=== PATIENT | female | born 1950 | race Caucasian/White ===

== ENCOUNTER 2016-05-16 08:32 | Outpatient (CLI) | payer MEDICARE, OTHER | END 2016-05-16 08:33 | disposition home or self-care (01) | DX: E03.9 Hypothyroidism, unspecified (principal); R53.83 Other fatigue; D64.9 Anemia, unspecified ==

== ENCOUNTER 2016-10-15 08:57 | Outpatient (CLI) | payer MEDICARE, OTHER ==
[2016-10-15 18:13] LABS: BASOPHILS % (AUTO) 0.6 %; EOSINOPHILS # (AUTO) 0.2 10^3/uL (0.0-0.7); EOSINOPHILS % (AUTO) 3.2 %; HCT - HEMATOCRIT 39.5 % (37.0-47.0); LYMPHOCYTES # (AUTO) 1.5 10^3/uL (1.5-3.5); MEAN CORPUSCULAR HEMOGLOBIN 29.7 pg (27.0-31.0); MEAN PLATELET VOLUME 8.2 fL (7.9-10.8); MONOCYTES # (AUTO) 0.3 10^3/uL (0.0-1.0); MONOCYTES % (AUTO) 5.6 %; NEUTROPHILS # (AUTO) 3.6 10^3/uL (1.5-6.6); NEUTROPHILS % (AUTO) 63.6 %; NUCLEATED RED BLOOD CELLS AUTO 0.1 /100WBC; RED BLOOD COUNT 4.39 10^6/uL (4.20-5.40); UNCORRECTED WHITE BLOOD COUNT 5.6 x10^3/uL; WHITE BLOOD COUNT 5.6 x10^3/uL (4.8-10.8)
[2016-10-15 19:11] LABS: ALBUMIN/GLOBULIN RATIO 1.4 (1.0-2.2); BILIRUBIN,TOTAL 0.6 mg/dL (0.2-1.0); BUN - BLOOD UREA NITROGEN 22 mg/dL (6-20); CALCIUM 9.2 mg/dL (8.5-10.3); CARBON DIOXIDE - CO2 26 mmol/L (21-32); CHLORIDE 104 mmol/L (101-111); CHOL/HDL RATIO 2.7 (<4.4); CHOLESTEROL 241 mg/dL; CREATININE 0.9 mg/dL (0.4-1.0); GFR - MDRD 63 (>89); GLUCOSE 98 mg/dL (70-100); HDL CHOLESTEROL 88 mg/dL; LDL/HDL RATIO 1.4 (<4.4); POTASSIUM 3.9 mmol/L (3.5-5.0); SODIUM 136 mmol/L (135-145); TOTAL PROTEIN 7.1 g/dL (6.7-8.2); TRIGLYCERIDES 137 mg/dL; VLDL CHOLESTEROL 27 mg/dL
== END 2016-10-15 08:58 | disposition home or self-care (01) ==
LOC: LAB.F 08:57
PROVIDERS: ATTEND Physician Assistant Medical
DX: E78.5 Hyperlipidemia, unspecified (principal); Z51.81 Encounter for therapeutic drug level monitoring; E03.9 Hypothyroidism, unspecified; Z79.899 Other long term (current) drug therapy
CPT/HCPCS: 36415; 80053; 80061; 80175; 84443; 85025

== ENCOUNTER 2016-11-25 22:18 | Emergency (ER) | payer MEDICARE, OTHER ==
[2016-11-25 22:29] VITALS: BP 120/62
[2016-11-25] MEDS ORDERED: predniSONE 20 MG TABLET PO STA (22:35)
[2016-11-25] MEDS ORDERED: LORATADINE 10 MG TABLET PO STA (22:36)
--- NOTE | 2016-11-25 22:42 | ED Physician Documentation ---
PD HPI ANIMAL BITE - Stated complaint Stated Complaint: BEE STING - Chief complaint Chief Complaint: Wound - History obtained from History obtained from: Patient, Family - Additional information Additional information: This patient had a bee sting to her left upper arm medially a day ago and today the areas intensely pruritic, red, warm and tender to touch. The patient is concerned about a possible infection. She is otherwise pretty healthy she has a history of hypothyroidism but does not have any serious other medical problems. She has not had any swelling of her face her tongue and there is no difficulty in breathing. She has no previous history of allergies to bees. Review of systems: For pertinent positive and negatives in the review of systems please see history of present illness. Otherwise all other systems have been reviewed and are negative. AKT disclaimer: Parts of this medical record were created using voice recognition technology. Because of the inherent limitations of this system occasional same sounding word substitutions do occur and persist despite proofreading. Please read the document for context. Review of Systems Respiratory: denies: Dyspnea, Cough, Wheezing Skin: reports: Rash, Bite / sting PD PAST MEDICAL HISTORY - Past Medical History Cardiovascular: Hypertension, High cholesterol, Murmur Respiratory: None Neuro: Headache/migraine Endocrine/Autoimmune: HyPOthyroidism GI: None AUTOMOTIVE FINANCE MANAGER: None : None HEENT: None Psych: Depression, Anxiety, Bipolar disorder Musculoskeletal: Osteoarthritis Derm: None - Past Surgical History Past Surgical History: Yes General: Appendectomy /AUTOMOTIVE FINANCE MANAGER: Hysterectomy - Present Medications Home Medications: Ambulatory Orders Medication Instructions Recorded Confirmed Estradiol 1 tab PO DAILY 04/03/14 11/25/16 Fluticasone Propionate [Flovent 1 puffs INH BID PRN 04/03/14 11/25/16 Diskus] Hydrochlorothiazide 1 tab PO DAILY 04/03/14 11/25/16 Lamotrigine [Lamictal] 2 tab PO BID 04/03/14 11/25/16 Levothyroxine [Synthroid] 1 tab PO DAILY 04/03/14 11/25/16 Sertraline [Zoloft] 2 tab PO DAILY 04/03/14 11/25/16 Simvastatin 1 tab PO DAILY 04/03/14 11/25/16 Loratadine [Claritin] 10 mg PO DAILY #7 tablet 11/25/16 Prednisone 40 mg PO DAILY #8 tablet 11/25/16 - Allergies Allergies/Adverse Reactions: Allergies Allergy/AdvReac Type Severity Reaction Status Date / Time codeine Allergy Nausea Verified 11/25/16 22:26 Penicillins Allergy Hives Verified 11/25/16 22:26 Sulfa (Sulfonamide Allergy Hives Verified 11/25/16 22:26 Antibiotics) Latex, Natural Rubber AdvReac Severe Rash Verified 11/25/16 22:26 oxycodone AdvReac Nausea Verified 11/25/16 22:26 - Social History Does the pt smoke?: No Smoking Status: Never smoker Does the pt drink ETOH?: No Does the pt have substance abuse?: No - Immunizations Immunizations are current?: Yes Immunizations: TDAP current <10years - POLST Patient has POLST: No PD ED PE NORMAL - General General: Alert and oriented X 3, No acute distress, Well developed/nourished - HEENT HEENT: Atraumatic - Derm Derm: Other - Neuro Neuro: Other (Well-appearing female no apparent distress on examination of her left medial upper extremity there is area approximately the size of my hand that is red, pruritic, and warm to touch. There is a central area presumably from the insect be of animation. There is no area of fluctuance or other clinical findings consistent with infection.) Results - Vitals Vitals: Vital Signs - 24 hr 11/25/16 22:26 Temperature 36.5 C Heart Rate 67 Respiratory 16 Rate Blood Pressure 120/62 O2 Saturation 100 Oxygen O2 Source Room air PD MEDICAL DECISION MAKING - ED course ED course: Well-appearing lady who had a bee sting yesterday left upper arm. She has no signs or symptoms of anaphylaxis. On examination she has findings consistent with a local allergic reaction from a bee sting. I did discuss this with her. This does not suggest infection at this point. I am recommending oral prednisone, loratadine and topical cortisone cream which is dispensed here. Disposition: To home Clinical impression: 1. Left medial upper arm bee sting with local allergic reaction Departure - Departure Disposition: Home, Self Care Clinical Impression: Local reaction to bee sting Qualifiers: Encounter type: initial encounter Injury intent: accidental or unintentional Qualified Code(s): T63.441A - Toxic effect of venom of bees, accidental ( unintentional), initial encounter Condition: Good Instructions: ED Bite Sting Insect Local Allergic React Follow-Up: Akira,Skyler W, PA-C [Primary Care Provider] - Prescriptions: Loratadine [Claritin] 10 mg PO DAILY #7 tablet Prednisone 40 mg PO DAILY #8 tablet
[2016-11-25] MEDS ORDERED: HYDROCORTISONE 1% CREAM 28 GM TUBE TOP STA (22:46)
[2016-11-25] MEDS ORDERED: LORATADINE 10 MG TABLET ONE (22:47)
[2016-11-25] MEDS ORDERED: predniSONE 20 MG TABLET ONE (22:47)
[2016-11-25] MEDS ORDERED: HYDROCORTISONE 1% CREAM 28 GM TUBE TOP SCH (23:00)
== END 2016-11-25 23:15 | disposition home or self-care (01) ==
LOC: ED 22:18
DX: T63.441A Toxic effect of venom of bees, accidental (unintentional), initial encounter (principal)
CPT/HCPCS: 99283; A9270; J7512

== ENCOUNTER 2017-08-12 09:08 | Outpatient (CLI) | payer MEDICARE, OTHER ==
[2017-08-12 18:00] LABS: BASOPHILS % (AUTO) 0.6 %; EOSINOPHILS # (AUTO) 0.1 10^3/uL (0.0-0.7); EOSINOPHILS % (AUTO) 2.8 %; HGB - HEMOGLOBIN 12.4 g/dL (12.0-16.0); LYMPHOCYTES # (AUTO) 1.4 10^3/uL (1.5-3.5); LYMPHOCYTES % (AUTO) 28.3 %; MEAN CORPUSCULAR HEMOGLOBIN 29.6 pg (27.0-31.0); MEAN CORPUSCULAR HGB CONC 33.5 g/dL (32.0-36.0); MEAN CORPUSCULAR VOLUME 88.4 fL (81.0-99.0); MEAN PLATELET VOLUME 7.9 fL (7.9-10.8); MONOCYTES # (AUTO) 0.3 10^3/uL (0.0-1.0); MONOCYTES % (AUTO) 5.3 %; NEUTROPHILS # (AUTO) 3.1 10^3/uL (1.5-6.6); PLT - PLATELET COUNT 176 10^3/uL (130-450); RED CELL DISTRIBUTION WIDTH 14.4 % (12.0-15.0)
[2017-08-12 18:05] LABS: ALBUMIN 3.9 g/dL (3.2-5.5); ALBUMIN/GLOBULIN RATIO 1.3 (1.0-2.2); ALKALINE PHOSPHATASE 52 IU/L (42-121); ALT ALANINE AMINOTRANSFERASE 14 IU/L (10-60); AST ASPARTATE AMINOTRANSFERASE 18 IU/L (10-42); BILIRUBIN,TOTAL 0.3 mg/dL (0.2-1.0); BUN - BLOOD UREA NITROGEN 18 mg/dL (6-20); CARBON DIOXIDE - CO2 28 mmol/L (21-32); CHLORIDE 104 mmol/L (101-111); CHOL/HDL RATIO 2.6 (<4.4); CHOLESTEROL 237 mg/dL; CREATININE 0.9 mg/dL (0.4-1.0); GFR - MDRD 63 (>89); GLUCOSE 101 mg/dL (70-100); HDL CHOLESTEROL 91 mg/dL; LDL CHOLESTEROL,CALCULATED 127 mg/dL; LDL/HDL RATIO 1.4 (<4.4); SODIUM 138 mmol/L (135-145); VLDL CHOLESTEROL 19 mg/dL
[2017-08-12 18:14] LABS: THYROID STIMULATING HORMONE 2.75 uIU/mL (0.34-5.60)
[2017-08-12 18:21] LABS: FERRITIN 114.2 ng/mL (11.0-306.8)
[2017-08-12 18:25] LABS: FOLATE 13.75 ng/mL (5.90 - >24.8)
== END 2017-08-12 09:09 | disposition home or self-care (01) ==
LOC: LAB.F 09:08
PROVIDERS: ATTEND Physician Assistant Medical
DX: D64.9 Anemia, unspecified (principal); E78.5 Hyperlipidemia, unspecified; E03.9 Hypothyroidism, unspecified; R41.3 Other amnesia; Z51.81 Encounter for therapeutic drug level monitoring
CPT/HCPCS: 36415; 80053; 80061; 80175; 82607; 82728; 82746; 83721; 84443; 85025

== ENCOUNTER 2017-09-23 15:36 | Outpatient (CLI) | payer MEDICARE, OTHER | END 2017-09-23 15:37 | disposition home or self-care (01) | LOC: RT 15:36 | PROVIDERS: ATTEND Orthopaedic Surgery | DX: E78.5 Hyperlipidemia, unspecified (principal); I10 Essential (primary) hypertension | CPT/HCPCS: 93005 ==

== ENCOUNTER 2018-01-27 13:17 | Outpatient (CLI) | payer MEDICARE, OTHER ==
--- NOTE | 2018-01-27 17:38 | XRAY Report ---
Reason: ANKLE JOINT FOOT RIGHT PAIN Procedure Date: 01/27/2018 Accession Number: [id number] / [id number] Procedure: XR - Foot 3 View RT CPT Code: FULL RESULT: EXAM: RIGHT FOOT RADIOGRAPHY EXAM DATE: 01/27/2018 01:32 PM. CLINICAL HISTORY: Right ankle joint, foot pain. COMPARISON: XR FOOT COMPLETE MIN 3 VIEWS 11/06/2008 10:18 AM. TECHNIQUE: 3 views. FINDINGS: Bones: No fracture or dislocation or bone lesion. Joints: Normal. No subluxations. Soft Tissues: Normal. No soft tissue swelling. IMPRESSION: No abnormalities detected in the region of the base of the fifth metatarsal. [facility]
--- NOTE | 2018-01-27 17:38 | XRAY Report ---
Reason: PAIN IN RIGHT ANKLE AND JOINTS OF RIGHT FOOT Procedure Date: 01/27/2018 Accession Number: [id number] / [id number] Procedure: XR - Ankle 3 View RT CPT Code: FULL RESULT: EXAM: RIGHT ANKLE RADIOGRAPHY EXAM DATE: 01/27/2018 01:23 PM. CLINICAL HISTORY: PAIN IN RIGHT ANKLE AND JOINTS OF RIGHT FOOT. COMPARISON: None. TECHNIQUE: 3 views. FINDINGS: Bones: No fracture or bone lesion. Mild inferior calcaneal enthesopathy. Joints: Normal. No effusion. No subluxations. The ankle mortise is normally aligned. Soft Tissues: Soft tissue swelling about the lateral malleolus. IMPRESSION: No fracture or dislocation. [facility]
== END 2018-01-27 13:18 | disposition home or self-care (01) ==
LOC: DI 13:17
PROVIDERS: ATTEND Family Medicine
DX: M25.571 Pain in right ankle and joints of right foot (principal); M79.671 Pain in right foot

== ENCOUNTER 2018-02-24 12:18 | Outpatient (CLI) | payer MEDICAID, MEDICARE ==
--- NOTE | 2018-02-24 19:27 | MRI Report ---
Reason: ANKLE JOINT PAIN, RIGHT Procedure Date: 02/24/2018 Accession Number: [id number] / [id number] Procedure: MRI - Ankle RT W/O CPT Code: FULL RESULT: EXAM: RIGHT ANKLE/HINDFOOT MRI WITHOUT CONTRAST. EXAM DATE: 02/24/2018 01:10 PM. CLINICAL HISTORY: Ankle joint pain, right. COMPARISON: foot 3 view right 01/27/2018 1:22 PM. TECHNIQUE: Multiplanar, multisequence T1-weighted and fluid-sensitive sequences of the ankle/hindfoot without contrast. Other: None. FINDINGS: Bones: Negative for fracture. Reactive marrow edema seen at the distal talus dorsal talonavicular joint associated with hypertrophic spurring and capsular hypertrophy. Edema is noted of the talus adjacent to the tarsal sinus. Moderate spurring inferior calcaneal tuberosity. Intraosseous ganglion cyst 1.4 cm calcaneus body. Articular Cartilage: Severe chondromalacia dorsum talonavicular joint. Ligaments: The anterior and posterior tibiofibular, anterior and posterior talofibular, and calcaneofibular ligaments are intact. The deep and superficial deltoid and spring ligaments are intact. Anterior Tendons: The tibialis anterior, extensor hallucis longus, and extensor digitorum longus tendons are unremarkable. Medial Tendons: The tibialis posterior, flexor digitorum longus, and flexor hallucis longus tendons are unremarkable. Lateral Tendons: Mild peroneus longus tenosynovitis at the level of the cuboid undersurface. Achilles Tendon: The Achilles tendon is unremarkable. Musculature: No edema or fatty atrophy. Other: Increased fluid posterior recess of the posterior subtalar joint. There is replacement of the tarsal sinus fat by soft tissue or fluid with associated inferior talus osseous erosion and mild reactive marrow edema. Communicating with the tarsal sinus is a ventral ankle ganglion cyst 1.7 cm x 2.3 cm (image 13 series 701 and image 21 series 601). No plantar fasciitis. IMPRESSION: 1. 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 Differential considerations include the rheumatoid arthritis. 2. Associated with the tarsal sinus syndrome is a communicating ventral ganglion cyst at the lateral aspect anterior talonavicular joint measuring 1.7 cm x 2.3 cm. 3. 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 [facility] MUSCULOSKELETAL RADIOLOGY SECTION
== END 2018-02-24 12:19 | disposition home or self-care (01) ==
LOC: DI 12:18
PROVIDERS: ATTEND Family Medicine
DX: M25.571 Pain in right ankle and joints of right foot (principal); M67.471 Ganglion, right ankle and foot; M19.071 Primary osteoarthritis, right ankle and foot

== ENCOUNTER 2018-04-10 15:07 | Outpatient (CLI) | payer MEDICARE, MEDICAID ==
--- NOTE | 2018-04-12 03:52 | Ultrasound Report ---
Reason: ABDOMINAL PAIN, PERIUMBILICAL Procedure Date: 04/10/2018 Accession Number: [id number] / [id number] Procedure: US - Abdomen Limited CPT Code: FULL RESULT: EXAM: ABDOMEN ULTRASOUND LIMITED EXAM DATE: 04/10/2018 03:16 PM. CLINICAL HISTORY: ABDOMINAL PAIN, PERIUMBILICAL. COMPARISON: None. TECHNIQUE: Real-time scanning was performed with static images obtained. IMPRESSION: No mass or fluid collection seen in the of the reported region of concern to the left of the umbilicus. If there is continued clinical concern, consider CT. [facility]
== END 2018-04-10 15:08 | disposition home or self-care (01) ==
LOC: DI 15:07
PROVIDERS: ATTEND Internal Medicine
DX: R10.33 Periumbilical pain (principal)
CPT/HCPCS: 76705

== ENCOUNTER 2018-08-12 08:00 | Outpatient (CLI) | payer MEDICARE, MEDICAID ==
[2018-08-12 17:34] LABS: BASOPHILS % (AUTO) 0.2 %; EOSINOPHILS # (AUTO) 0.1 10^3/uL (0.0-0.7); EOSINOPHILS % (AUTO) 0.7 %; HGB - HEMOGLOBIN 12.3 g/dL (12.0-16.0); LYMPHOCYTES # (AUTO) 1.1 10^3/uL (1.5-3.5); LYMPHOCYTES % (AUTO) 12.8 %; MEAN CORPUSCULAR HEMOGLOBIN 29.7 pg (27.0-31.0); MEAN CORPUSCULAR HGB CONC 33.7 g/dL (32.0-36.0); MEAN CORPUSCULAR VOLUME 88.1 fL (81.0-99.0); MEAN PLATELET VOLUME 7.8 fL (7.9-10.8); MONOCYTES # (AUTO) 0.5 10^3/uL (0.0-1.0); MONOCYTES % (AUTO) 5.1 %; NEUTROPHILS # (AUTO) 7.2 10^3/uL (1.5-6.6); NEUTROPHILS % (AUTO) 81.2 %; PLT - PLATELET COUNT 222 10^3/uL (130-450); RED BLOOD COUNT 4.13 10^6/uL (4.20-5.40); RED CELL DISTRIBUTION WIDTH 13.4 % (12.0-15.0); WHITE BLOOD COUNT 8.9 x10^3/uL (4.8-10.8)
[2018-08-12 17:53] LABS: HEMOGLOBIN A1C 0.51 g/dL; HEMOGLOBIN A1C % 5.7 % (4.6-6.2)
[2018-08-12 17:54] LABS: ALBUMIN 3.9 g/dL (3.2-5.5); ALBUMIN/GLOBULIN RATIO 1.2 (1.0-2.2); ALKALINE PHOSPHATASE 74 IU/L (42-121); ALT ALANINE AMINOTRANSFERASE 18 IU/L (10-60); AST ASPARTATE AMINOTRANSFERASE 20 IU/L (10-42); BILIRUBIN,TOTAL 0.8 mg/dL (0.2-1.0); BUN - BLOOD UREA NITROGEN 10 mg/dL (6-20); CALCIUM 9.4 mg/dL (8.5-10.3); CARBON DIOXIDE - CO2 25 mmol/L (21-32); CHLORIDE 94 mmol/L (101-111); CHOL/HDL RATIO 3.2 (<4.4); CHOLESTEROL 262 mg/dL; CREATININE 0.9 mg/dL (0.4-1.0); CRP - C-REACTIVE PROTEIN 2.7 mg/dL (0-1.0); GFR - MDRD 62 (>89); GLUCOSE 99 mg/dL (70-100); HDL CHOLESTEROL 81 mg/dL; LDL CHOLESTEROL,CALCULATED 163 mg/dL; SODIUM 130 mmol/L (135-145); TOTAL PROTEIN 7.2 g/dL (6.7-8.2); VLDL CHOLESTEROL 18 mg/dL
== END 2018-08-12 23:59 | disposition home or self-care (01) ==
LOC: LAB.F 08:00
PROVIDERS: ATTEND Registered Nurse
DX: R10.30 Lower abdominal pain, unspecified (principal)
CPT/HCPCS: 36415; 80053; 80061; 83036; 83721; 84443; 85025; 86140; 87086; 87181

== ENCOUNTER 2018-08-12 08:00 | Outpatient (CLI) | payer MEDICARE, MEDICAID | END 2018-08-12 08:01 | disposition home or self-care (01) | LOC: LAB.R 08:00 | PROVIDERS: ATTEND Registered Nurse | DX: R10.30 Lower abdominal pain, unspecified (principal) | CPT/HCPCS: 87086; 87181 ==

== ENCOUNTER 2018-08-14 20:17 | Outpatient (CLI) | payer MEDICARE, MEDICAID | END 2018-08-14 20:18 | disposition critical access hospital (66) | LOC: EMS 20:17 | PROVIDERS: ATTEND Surgery | DX: R53.1 Weakness (principal); R11.2 Nausea with vomiting, unspecified; R19.7 Diarrhea, unspecified; R53.81 Other malaise | CPT/HCPCS: A0425; A0427 ==

== ENCOUNTER 2018-08-14 20:50 | Inpatient (IN) | payer MEDICARE, MEDICAID ==
[2018-08-14] MEDS ORDERED: ONDANSETRON 4 MG/2 ML VIAL IVP STA (21:07)
[2018-08-14] MEDS ORDERED: HYDROmorphone 1 MG/ML CARPUJECT IVP STA (21:07)
[2018-08-14] MEDS ORDERED: SODIUM CHLORIDE 0.9% 1,000 ML IV ONE (21:07)
--- NOTE | 2018-08-14 21:12 | ED Physician Documentation ---
PD HPI ABD PAIN - Stated complaint Stated Complaint: N/V/D, CHILLS, MALAISE - Chief complaint Chief Complaint: Abd Pain - History obtained from History obtained from: Patient - History of Present Illness Timing - onset: How many days ago (6) Timing - duration: Days (6) Timing - details: Gradual onset, Still present Quality: Cramping, Sharp, Pain Location: All over / everywhere, Epigastric Improved by: Other (nothing) Worsened by: Position, Palpation Associated symptoms: Nausea, Vomiting, Diarrhea Similar symptoms before: Has not had sx before Recently seen: Clinic - Additional information Additional information: 67-year-old female with a history of hypertension and anxiety has developed periumbilical abdominal pain about 4 months ago. She has had persistence of this pain and about 1 week ago she developed nausea and vomiting associated with it and she has developed diarrhea 2 days ago. She is now feeling painful, exhausted and is having some more rapid breathing. She was seen by her primary care doctor and had blood drawn 4 days ago and at that time she was started on some Macrobid. She developed diarrhea and she is come to the emergency department now for help. She has had an ultrasound done of the brock-umbilical area on 04-10-18. Review of Systems Constitutional: reports: Fever, Fatigue, Sweats Eyes: denies: Decreased vision Ears: denies: Ear pain Nose: denies: Rhinorrhea / runny nose, Congestion Throat: denies: Sore throat Cardiac: denies: Chest pain / pressure, Palpitations Respiratory: denies: Dyspnea, Cough GI: reports: Abdominal Pain, Nausea, Vomiting, Diarrhea : denies: Dysuria, Frequency Skin: denies: Rash Musculoskeletal: denies: Neck pain, Back pain, Extremity pain Neurologic: reports: Generalized weakness. denies: Focal weakness, Numbness PD PAST MEDICAL HISTORY - Past Medical History Past Medical History: Yes Cardiovascular: Hypertension, High cholesterol, Murmur Respiratory: None Endocrine/Autoimmune: HyPOthyroidism GI: None HOTEL SERVICE SUPERVISOR: None : None HEENT: None Psych: Depression, Anxiety, Bipolar disorder Musculoskeletal: Osteoarthritis Derm: None - Past Surgical History Past Surgical History: Yes General: Appendectomy /HOTEL SERVICE SUPERVISOR: Hysterectomy - Present Medications Home Medications: Ambulatory Orders Medication Instructions Recorded Confirmed Levothyroxine [Synthroid] 75 mcg PO DAILY 04/03/14 08/15/18 Buspirone HCl 10 mg PO TID 08/15/18 08/15/18 lamoTRIgine [LaMICtal] 100 mg PO DAILY 08/15/18 08/15/18 - Allergies Allergies/Adverse Reactions: Allergies Allergy/AdvReac Type Severity Reaction Status Date / Time codeine Allergy Nausea Verified 08/14/18 20:53 Penicillins Allergy Hives Verified 08/14/18 20:53 Sulfa (Sulfonamide Allergy Hives Verified 08/14/18 20:53 Antibiotics) Latex, Natural Rubber AdvReac Severe Rash Verified 08/14/18 20:53 oxycodone AdvReac Nausea Verified 08/14/18 20:53 - Social History Does the pt smoke?: No Smoking Status: Never smoker Does the pt drink ETOH?: No Does the pt have substance abuse?: No - Immunizations Immunizations are current?: Yes Immunizations: TDAP current <10years - POLST Patient has POLST: No PD ED PE NORMAL - Vitals Vital signs reviewed: Yes (tachy ) - General General: Alert and oriented X 3, Well developed/nourished, Other (The patient appears to be in pain and she is panting. She does not appear to be in respiratory distress and she alert and answers appropriately ) - HEENT HEENT: Atraumatic, PERRL, EOMI, Other (parched mucous membranes ) - Neck Neck: Supple, no meningeal sign, No bony TTP - Cardiac Cardiac: No murmur, Other (tachy with distant heart sounds ) - Respiratory Respiratory: No respiratory distress, Clear bilaterally, Other (tachypneic at rest ) - Abdomen Abdomen: Soft, Other (general tenderness without guarding or rebound tenderness.) - Back Back: No CVA TTP, No spinal TTP - Derm Derm: Normal color, Warm and dry, No rash - Extremities Extremities: No deformity, No edema - Neuro Neuro: Alert and oriented X 3, box spring upholsterer 2-12 intact, No motor deficit, No sensory deficit, Normal speech Eye Opening: Spontaneous Motor: Obeys Commands Verbal: Oriented GCS Score: 15 - Psych Psych: Normal mood, Normal affect Results - Vitals Vitals: Vital Signs - 24 hr 08/14/18 08/14/18 08/14/18 20:53 21:03 22:48 Temperature 37.4 C 37.4 C 36.5 C Heart Rate 116 H 116 H Respiratory 22 22 Rate Blood Pressure 129/66 129/66 O2 Saturation 98 98 08/14/18 08/15/18 08/15/18 23:17 01:05 02:29 Temperature Heart Rate 85 76 75 Respiratory 19 14 16 Rate Blood Pressure 104/56 L 96/56 L 105/59 L O2 Saturation 91 L 94 97 08/15/18 08/15/18 08/15/18 03:48 04:13 05:47 Temperature 36.6 C 36.2 C L Heart Rate 83 79 Respiratory 18 19 Rate Blood Pressure 111/61 101/62 O2 Saturation 100 96 08/15/18 07:44 Temperature 36.8 C Heart Rate 80 Respiratory 16 Rate Blood Pressure 105/64 O2 Saturation 99 Oxygen O2 Source Room air - Labs Labs: Laboratory Tests 08/14/18 08/14/18 08/14/18 21:20 21:20 21:20 WBC 8.8 RBC 3.47 L Hgb 10.3 L Hct 29.9 L MCV 86.3 MCH 29.6 MCHC 34.3 RDW 13.6 Plt Count 134 MPV 7.0 L Neut # (Auto) 8.2 H Lymph # (Auto) 0.2 L [place] # (Auto) 0.4 Eos # (Auto) 0.0 Baso # (Auto) 0.0 Absolute Nucleated RBC 0.00 Nucleated RBC % 0.0 Sodium 128 L Potassium 3.3 L Chloride 95 L Carbon Dioxide 20 L Anion Gap 13.0 BUN 20 Creatinine 1.7 H Estimated GFR (MDRD) 30 L Glucose 164 H Lactic Acid Calcium 7.8 L Total Bilirubin 0.7 AST 20 ALT 17 Alkaline Phosphatase 65 Troponin I < 0.04 Total Protein 6.0 L Albumin 2.7 L Globulin 3.3 Albumin/Globulin Ratio 0.8 L Lipase 18 L Urine Color Urine Clarity Urine pH Ur Specific [place] Urine Protein Urine Glucose (UA) Urine Ketones Urine Occult Blood Urine Nitrite Urine Bilirubin Urine Urobilinogen Ur Leukocyte Esterase Urine RBC Urine WBC Ur Squamous Epith Cells Urine Bacteria Ur Microscopic Review Urine Culture Comments 08/14/18 08/15/18 08/15/18 21:23 01:20 07:33 WBC 8.9 RBC 3.46 L Hgb 10.3 L Hct 30.1 L MCV 87.0 MCH 29.7 MCHC 34.1 RDW 13.4 Plt Count 150 MPV 7.5 L Neut # (Auto) 7.9 H Lymph # (Auto) 0.6 L [place] # (Auto) 0.4 Eos # (Auto) 0.0 Baso # (Auto) 0.0 Absolute Nucleated RBC 0.00 Nucleated RBC % 0.0 Sodium Potassium Chloride Carbon Dioxide Anion Gap BUN Creatinine Estimated GFR (MDRD) Glucose Lactic Acid 1.4 Calcium Total Bilirubin AST ALT Alkaline Phosphatase Troponin I Total Protein Albumin Globulin Albumin/Globulin Ratio Lipase Urine Color YELLOW Urine Clarity SL. CLOUDY Urine pH 6.0 Ur Specific [place] <=1.005 Urine Protein 100 H Urine Glucose (UA) NEGATIVE Urine Ketones NEGATIVE Urine Occult Blood LARGE H Urine Nitrite NEGATIVE Urine Bilirubin NEGATIVE Urine Urobilinogen 0.2 (NORMAL) Ur Leukocyte Esterase SMALL H Urine RBC 11-25 H Urine WBC 6-10 H Ur Squamous Epith Cells RARE Squamous Urine Bacteria Moderate H Ur Microscopic Review INDICATED Urine Culture Comments INDICATED 08/15/18 07:33 WBC RBC Hgb Hct MCV MCH MCHC RDW Plt Count MPV Neut # (Auto) Lymph # (Auto) [place] # (Auto) Eos # (Auto) Baso # (Auto) Absolute Nucleated RBC Nucleated RBC % Sodium 126 L Potassium 3.6 Chloride 95 L Carbon Dioxide 22 Anion Gap 9.0 BUN 19 Creatinine 1.5 H Estimated GFR (MDRD) 35 L Glucose 134 H Lactic Acid Calcium 7.9 L Total Bilirubin 0.3 AST 20 ALT 16 Alkaline Phosphatase 67 Troponin I Total Protein 6.0 L Albumin 2.6 L Globulin 3.4 Albumin/Globulin Ratio 0.8 L Lipase 18 L Urine Color Urine Clarity Urine pH Ur Specific [place] Urine Protein Urine Glucose (UA) Urine Ketones Urine Occult Blood Urine Nitrite Urine Bilirubin Urine Urobilinogen Ur Leukocyte Esterase Urine RBC Urine WBC Ur Squamous Epith Cells Urine Bacteria Ur Microscopic Review Urine Culture Comments - Rads (name of study) CT abd/pel Radiology: Prelim report reviewed (Impression: 1. There is definite inflammation partially contiguous with the cecum and along the right lateral conal fascia with slight inflammation contiguous with the right kidney and some inflammatory change contiguous with the right ureter. The small bowel and colon are normal in appearance, however, the appendix is nonvisualized. These inflammatory changes may be related to recent burst appendix. No focal drainable fluid collections.), EMP read indepedently, See rad report Procedures - Bedside sono Bedside sono by EMP: With use of bedside ultrasound the gallbladder is imaged it is sonographically tender there is no obvious stone it is distended there is no wall thickening. - IVC sono (time) 2101 Bedside IVC sono: IVC measures (cm) (0.55), IVC collapsed c insp (cm) (complete), Profound dehydration (est >3 liter deficit) PD MEDICAL DECISION MAKING - ED course Complexity details: reviewed old records, reviewed results, re-evaluated patient, considered differential, d/w patient, d/w building performance consultant (consulted hospitalist Dr. Guillermo. She indicated the patient does not meet criteria for admission to the hospital and will need further work up and treatment as an outpatient.), other (Dr. Linder GI at [facility]: recomends bowel rest, IV abx/fluids and stool studies scoping to be delayed until improved. ) ED course: 67-year-old female with 4 months of abdominal pain has now developed nausea and vomiting and after starting Macrobid she has developed diarrhea. She is found to be significantly dehydrated on interrogation of the inferior vena cava and intravenous saline and Zofran are administered. She is administered Dilaudid for the pain and has some improvement. CT scanning shows some right-sided colitis. The patient has had her appendix out and a hysterectomy. On arrival to the emergency department the patient appeared to likely need admission to the hospital for treatment of significant dehydration. She had so me improvement after administration of pain medication and this was really only related to the administration of the pain medication. We were hopeful of obtaining a stool specimen and waited for this to happen before admission but she was not able to produce a specimen. She continues to be symptomatic she has had changes in her red cell count her sodium potassium and creatinine. Urine did look potentially infected and IV rocephin was administered. The patient appears to have a right sided colitis and treatment with bowel rest, IV fluids, stool studies and antibiotic are indicated. The patient feels no better after 10+ hours in the ED. She has a puny blood pressure and I believe she meets criteria for admission to at least observation. I did discuss the case with the GI doctor at [facility] Matthew who recommends admission for observation, stool studies, fluids, antibiotics, pain control and delay in scoping. As far as making criteria for admission the patient is hypotensive periodically after more than 11 [address] in the ED[address] Dr. Ambriz has graciously agreed to care for the patient in the hospital. Departure - Departure Disposition: ED Place in Observation Clinical Impression: Dehydration, Gastroenteritis, Colitis Abdominal pain Qualifiers: Abdominal location: generalized Qualified Code(s): R10.84 - Generalized abdominal pain Condition: Fair
[2018-08-14 21:34] LABS: BASOPHILS % (AUTO) 0.2 %; HGB - HEMOGLOBIN 10.3 g/dL (12.0-16.0); LYMPHOCYTES # (AUTO) 0.2 10^3/uL (1.5-3.5); LYMPHOCYTES % (AUTO) 2.5 %; MEAN CORPUSCULAR HEMOGLOBIN 29.6 pg (27.0-31.0); MEAN CORPUSCULAR HGB CONC 34.3 g/dL (32.0-36.0); MEAN CORPUSCULAR VOLUME 86.3 fL (81.0-99.0); MONOCYTES # (AUTO) 0.4 10^3/uL (0.0-1.0); NEUTROPHILS # (AUTO) 8.2 10^3/uL (1.5-6.6); NEUTROPHILS % (AUTO) 93.3 %; PLT - PLATELET COUNT 134 10^3/uL (130-450); RED BLOOD COUNT 3.47 10^6/uL (4.20-5.40); RED CELL DISTRIBUTION WIDTH 13.6 % (12.0-15.0); WHITE BLOOD COUNT 8.8 x10^3/uL (4.8-10.8)
[2018-08-14] MEDS ORDERED: IOVERSOL 320 100 ML VIAL IVP ONE ×2 (21:41→22:26)
[2018-08-14 21:46] LABS: ALBUMIN 2.7 g/dL (3.2-5.5); ALBUMIN/GLOBULIN RATIO 0.8 (1.0-2.2); BILIRUBIN,TOTAL 0.7 mg/dL (0.2-1.0); CALCIUM 7.8 mg/dL (8.5-10.3); CREATININE 1.7 mg/dL (0.4-1.0)
[2018-08-14] MEDS ORDERED: POTASSIUM BICARB 25 MEQ TABLET PO STA (22:23)
[2018-08-14] MEDS ORDERED: POTASSIUM CHLOR 10 MEQ/100 ML 10 MEQ/100 ML BAG IV ONE (22:24)
--- NOTE | 2018-08-14 22:37 | CT Report ---
Reason: general abdominal tenderness 6 days Procedure Date: 08/14/2018 Accession Number: [id number] / [id number] Procedure: CT - Abdomen/Pelvis W CPT Code: FULL RESULT: EXAM: CT ABDOMEN AND PELVIS EXAM DATE: 08/14/2018 10:13 PM. CLINICAL HISTORY: General abdominal tenderness 6 days. COMPARISONS: None. TECHNIQUE: Routine helical CT imaging was performed through the abdomen and pelvis. IV contrast: 75 ML OPTIRAY 320. Enteric contrast: No. Reconstructions: Coronal and sagittal. In accordance with CT protocol optimization, one or more of the following dose reduction techniques were utilized for this exam: automated exposure control, adjustment of mA and/or KV based on patient size, or use of iterative reconstructive technique. FINDINGS: Lung Bases: Minimal scarring at the right lung base. Liver: Normal. No masses. Gallbladder/Bile Ducts: Unremarkable. Spleen: Normal. Pancreas: Normal. Adrenal Glands: Normal. Kidneys: The kidneys are normally positioned. There is a large cyst involving the right kidney. This measures 47 mm x57 mm transversely and 48 mm superiorly inferiorly. Peritoneal Cavity/Bowel: Normal. No free fluid, free air or adenopathy. No masses or acute inflammatory process. The appendix is not clearly visualized. There is stranding of the fat contiguous with the cecum involving the right lateral conal fascia. There is inflammatory change which extends along the right lateral conal fascia superiorly with slight amount of inflammatory changes contiguous with the right pararenal space and minimally in Morison's pouch. The colon is grossly unremarkable and the terminal ileum is normal. This inflammatory change is also partially contiguous with the right ureter in the retroperitoneum. Pelvic Organs: The uterus and adnexa have been resected. There is no free fluid in the pelvis. The urinary bladder is unremarkable. There are no bladder calculi. There are no definite calculi in the distal ureters. Vasculature: No aneurysms or other significant abnormality. Bones: No significant abnormality. Other: None. IMPRESSION: 1. There is definite inflammation partially contiguous with the cecum and along the right lateral conal fascia with slight inflammation contiguous with the right kidney and some inflammatory change contiguous with the right ureter. The small bowel and colon are normal in appearance, however, the appendix is nonvisualized. These inflammatory changes may be related to a recently burst appendix. No focal drainable fluid collections. [facility]
[2018-08-15] MEDS ORDERED: HYDROmorphone 1 MG/ML CARPUJECT IM STA (00:04)
[2018-08-15 01:33] LABS: BILIRUBIN,URINE NEGATIVE (NEGATIVE); GLUCOSE, URINE (UA) NEGATIVE (NEGATIVE); KETONES,URINE (UA) NEGATIVE (NEGATIVE); LEUKOCYTE ESTERASE, URINE SMALL (NEGATIVE); NITRITE,URINE NEGATIVE (NEGATIVE); OCCULT BLOOD,URINE LARGE (NEGATIVE); PROTEIN,URINE 100 mg/dL (NEGATIVE); UROBILINOGEN,URINE 0.2 (NORMAL) E.U./dL (NORMAL)
[2018-08-15 01:40] LABS: BACTERIA,URINE Moderate /HPF (None Seen); CLARITY,URINE SL. CLOUDY (CLEAR); SQUAMOUS EPITHELIAL CELL,UR RARE Squamous (<= Few)
[2018-08-15] MEDS ORDERED: SODIUM CHLORIDE 0.9% 1,000 ML IV ONE (02:14)
[2018-08-15] MEDS ORDERED: cefTRIAXone 1 GM in SODIUM CHLORIDE 0.9% MINIBAG 100 ML IV STA (02:14)
[2018-08-15] MEDS ORDERED: ACETAMINOPHEN 1,000 MG/100 ML 100 ML IV STA (03:54)
[2018-08-15] MEDS ORDERED: LORazepam 2 MG/ML VIAL IVP STA (04:58)
[2018-08-15] MEDS ORDERED: CIPROFLOXACIN 400 MG/200 ML 200 ML IV ONE (05:25)
[2018-08-15] MEDS ORDERED: metroNIDAZOLE 500 MG/100 ML 500 MG/100 ML BAG IV ONE (05:25)
[2018-08-15 08:00] LABS: BASOPHILS % (AUTO) 0.2 %; EOSINOPHILS % (AUTO) 0.1 %; HGB - HEMOGLOBIN 10.3 g/dL (12.0-16.0); LYMPHOCYTES # (AUTO) 0.6 10^3/uL (1.5-3.5); LYMPHOCYTES % (AUTO) 6.6 %; MEAN CORPUSCULAR HEMOGLOBIN 29.7 pg (27.0-31.0); MEAN CORPUSCULAR HGB CONC 34.1 g/dL (32.0-36.0); MEAN PLATELET VOLUME 7.5 fL (7.9-10.8); MONOCYTES # (AUTO) 0.4 10^3/uL (0.0-1.0); MONOCYTES % (AUTO) 4.1 %; NEUTROPHILS # (AUTO) 7.9 10^3/uL (1.5-6.6); PLT - PLATELET COUNT 150 10^3/uL (130-450); RED BLOOD COUNT 3.46 10^6/uL (4.20-5.40); RED CELL DISTRIBUTION WIDTH 13.4 % (12.0-15.0); WHITE BLOOD COUNT 8.9 x10^3/uL (4.8-10.8)
[2018-08-15 08:02] LABS: ALBUMIN 2.6 g/dL (3.2-5.5); ALBUMIN/GLOBULIN RATIO 0.8 (1.0-2.2); BILIRUBIN,TOTAL 0.3 mg/dL (0.2-1.0); CALCIUM 7.9 mg/dL (8.5-10.3); CREATININE 1.5 mg/dL (0.4-1.0)
[2018-08-15] MEDS ORDERED: MORPHINE 2 MG/ML SYRINGE IVP PRN (09:05)
[2018-08-15] MEDS ORDERED: LACTATED RINGERS 1,000 ML IV SCH (10:00)
--- NOTE | 2018-08-15 10:16 | HISTORY & PHYSICAL EXAMINATION ---
Chief Complaint - Chief Complaint Chief Complaint: abdominal pain History of Present Illness - History of Present Illness HPI Comment/Other: is a 67-year-old female with a PMH significant of hypertension, HLD, hypothyoidism, heart murmur, depression, anxiety, bipolar, osteoarthritis who present ER complain of abdominal pain. Pt report she had abdominal pain for couple of months. Her abdominal pain mainly locate her right middle quadrant of abdomen. She report her abdominal pain persisted and she developed nausea and vomiting about 1 week ago. she has also developed diarrhea 2 days ago. Pt report she saw PCP on Thursday and she had labs done. Rx Macrobid was prescribed for her. She report she has only been able to drink water all week. She can not able to take any of her medications. She report she had fever 102 F at home. She d enies chest pain, headache, cough, wheezing, shortness of breath, dysuria, hematuria. CT of abdomen and pelvis indicate definite inflammation partially contiguous with cecum and along the right lateral conal fascia with slight inflammation contiguous with right kidney and right ureter. ER provider discussed the case with the GI doctor at [facility], who recommended admission of pt for observation, stool studies, fluids, antibiotics, pain control and delay in scoping. Nurse report blood culture in two tubes both are positive for gram negative bacilli. pt is afebrile at ER, slight low board of BP, otherwise pt is hemodynamically stable. Lab test reveals pt had elevated creatinine1.7 from 0.9 two days ago, hyponatremia 128. UA indicate UTI. pt is admitted for above medical causes. History - Past Medical History Cardiovascular: reports: Hypertension, High cholesterol, Murmur Respiratory: reports: None Endocrine/Autoimmune: reports: HyPOthyroidism GI: reports: None AUTOMOBILE LOCATOR: reports: None : reports: None HEENT: reports: None Psych: reports: Depression, Anxiety, Bipolar disorder Musculoskeletal: reports: Osteoarthritis Derm: reports: None MRSA Hx?: Yes - Past Surgical History General: reports: Appendectomy /AUTOMOBILE LOCATOR: reports: Hysterectomy - Family & Social History Family History Comment/Other: pt report her on last year, she is a window, she is living [place] currently. she had three children. pt is a caregiver. Living arrangement: At home Social History Notes: pt denies cigarret smoking, alcohol and drug abuse. - POLST Patient has POLST: No POLST Status: Full Code Meds/Allgy - Home Medications Home Medications: Ambulatory Orders Medication Instructions Recorded Confirmed Levothyroxine [Synthroid] 75 mcg PO DAILY 04/03/14 08/15/18 Acetaminophen [Tylenol Extra 500 - 1,000 mg PO TID PRN 08/15/18 08/15/18 Strength] Buspirone HCl 10 mg PO TID 08/15/18 08/15/18 Calcium/Magnesium/Vitamin D3 2 each PO BID 08/15/18 08/15/18 [Pardeep-Mag Complex 300-150 mg Tab] Lisinopril 5 mg PO DAILY 08/15/18 08/15/18 Multivitamin [Theragran] 1 each PO DAILY 08/15/18 08/15/18 [place]-3 Fatty Acids/Fish Oil 1 each PO DAILY 08/15/18 08/15/18 [[place]-3 Fish Oil 1,000 mg Sfgl] Sertraline HCl [Zoloft] 100 mg PO DAILY 08/15/18 08/15/18 hydroCHLOROthiazide 25 mg PO DAILY 08/15/18 08/15/18 [Hydrochlorothiazide] lamoTRIgine [LaMICtal] 100 mg PO DAILY 08/15/18 08/15/18 - Allergies Allergies/Adverse Reactions: Allergies Allergy/AdvReac Type Severity Reaction Status Date / Time codeine Allergy Nausea Verified 08/14/18 20:53 Penicillins Allergy Hives Verified 08/14/18 20:53 Sulfa (Sulfonamide Allergy Hives Verified 08/14/18 20:53 Antibiotics) Latex, Natural Rubber AdvReac Severe Rash Verified 08/14/18 20:53 oxycodone AdvReac Nausea Verified 08/14/18 20:53 Review of Systems - Constitutional Constitutional: reports: Fever, Chills. denies: Fatigue, Malaise, Weakness, Poor appetite, Diaphoresis, Night sweats, Weight gain, Weight loss - Eyes Eyes: denies: Pain, Irritation, Amaurosis, Blurred vision, Spots in vision, Field loss, Vision loss, Dipolpia - Ears, Nose & Throat Ears, Nose & Throat: denies: Ear pain, Hearing loss, Hearing aids, Tinnitus, Vertigo, Nasal pain, Nasal discharge, Nosebleeds, Nasal obstruction, Nasal marisa estion, Postnasal drainage, Dentures, Sore throat, Hoarseness, Mouth lesions, Bleeding gums - Cardiovascular Cariovascular: denies: Irregular heart rate, Palpitations, Chest pain, Edema, Lightheadedness, Syncope, Exertional dyspnea, Decr. exercise tolerance - Respiratory Respiratory: denies: Cough, Sputum production, Wheezing, Snoring, Hemoptysis, Orthopnea, SOB at rest, SOB with exertion - Gastrointestinal Gastrointestinal: reports: Abdominal pain, Diarrhea, Nausea, Vomiting, Poor appetite. denies: Abdominal distention, Constipation, Change in bowel habits, Rectal bleeding, Black stools, Bloody stools, Bile emesis, Jostin blood emesis, Coffee grounds emesis, Reflux/heartburn, Bloating - Genitourinary Genitourinary: denies: Dysuria, Frequency, Urgency, Hematuria, Incontinence, Flank pain, Nocturia, Urethral discharge - Musculoskeletal Musculoskeletal: denies: Muscle pain, Back pain, Muscle aches, Stiffness, Limited range of motion, Muscle weakness, Gout, Joint pain - Integumentary Integumentary: denies: Rash, Pruritis, Lesions, Dryness, Lumps, Acne, Pigment changes, Nail changes - Neurological Neurological: denies: General weakness, Focal weakness, Headache, Dizziness, Numbness, Memory problems, Pre-existing deficit, Abnormal gait, Seizures, Incoordination, Slurred speech - Psychiatric Psychiatric: denies: Depression, Anxiety, Suicidal, Delusions, Hallucinations, Homicidal - Endocrine Endocrine: denies: Polyuria, Polydypsia, Polyphagia, Intolerance to cold - Hematologic/Lymphatic Hematologic/Lymphatic: denies: Anemia, Bruising, Petechiae, Blood clots, Lymphadenopathy, Bleeding tendencies, Recurrent infections Prior Level of Functionality: pt is independently Exam - Vital Signs Reviewed Vital Signs: Yes Vital Signs: Vital Signs x48h Temp Pulse Resp BP Pulse Ox 08/15/18 07:44 36.8 C 80 16 105/64 99 08/15/18 05:47 36.2 C L 79 19 101/62 96 08/15/18 04:13 36.6 C 08/15/18 03:48 83 18 111/61 100 08/15/18 02:29 75 16 105/59 L 97 - Physical Exam General Appearance: positive: No acute distress, Alert. negative: Lethargic Eyes Bilateral: positive: Normal inspection, PERRL, No lid inflammation, Conjunctivae nml ENT: positive: ENT inspection nml, Pharynx nml, No signs of dehydration. negative: Purulent nasal drainage, Pharyngeal erythema, Oral lesions Neck: positive: Nml inspection, Thyroid nml, No JVD, Trachea midline. negative: Thyromegaly, Lymphadenopathy (R), Lymphadenopathy (L), Stiff neck, Swelling/bruising, Tracheal deviation Respiratory: positive: Chest non-tender, No respiratory distress, Breath sounds nml. negative: Wheezes, Rales, Rhonchi Cardiovascular: positive: Regular rate & rhythm, No murmur, No gallop. negative: Irregularly irregular, Extrasystoles, Tachycardia, Bradycardia, JVD present, Systolic murmur, Diastolic murmur Peripheral Pulses: positive: 2+ Abdomen: positive: No organomegaly, Nml bowel sounds, No distention, Tenderness. negative: Non-tender, Guarding, Rebound Back: positive: Nml inspection. negative: CVA tenderness (R), CVA tenderness (L) Skin: positive: Color nml, No rash, Warm, Dry. negative: Cyanosis, Diaphoresis, Pallor, Skin rash Extremities: positive: Non-tender, Full ROM, Nml appearance. negative: Calf tenderness, Joint swelling, Tatum's sign/cords Neurologic/Psychiatric: positive: Oriented x3, Motor nml, Sensation nml. negative: Weakness, Sensory loss, Facial droop, Slurred/abnml speech, Depressed mood/affect Sepsis Event Note (H) - Evaluation Current Stage of Sepsis: Ruled out Conclusion/Plan - Problem List (1) Abdominal pain Conclusion/Plan: pt report she had abdominal pain for couple of months. CT of abdomen and pelvis indicate definite inflammation partially contiguous with cecum and along the right lateral conal fascia with slight inflammation contiguous with right kidney and right ureter. It appear infection colitis antibiotics treatment with Flagyl and Levaquin pain control anti-emesis PRN Qualifiers: Abdominal location: generalized Qualified Code(s): R10.84 - Generalized abdominal pain (2) Bacteremia due to Gram-negative bacteria Conclusion/Plan: blood culture in tube both are positive for gram-negative bacilli. pt's UA reveals UTI, pt reported she was treated with Macrobid in the office, but still show UTI in today test. Also pt had abdominal pain for couple months, it appears colitis. This two resource could be the cause pt had bacteremia. pt has normal WBC, no fever in ER, but with low side of BP. treat with antibiotics Levaquin, blood culture and sensitivity are pending, will followup IVF of NS vital and lab test monitor closely, precaution for sepsis. (3) Acute kidney injury Conclusion/Plan: pt's creatinine increase to 1.7 from 0,9 two days. It seems dehydration appear the cause. pt report she had N/V for two days with diarrhea. IVF lab check renal function hold nephrolotixin agents (4) UTI (urinary tract infection) Conclusion/Plan: pt was treated with Macrobid but UA still reveals UTI treat with Levaquin, following UA culture (5) HTN (hypertension) Conclusion/Plan: slight low BP, hold home BP IVF, precaution sepsis. vital monitor (6) Hypothyroidism Conclusion/Plan: stable, will check TSH, reconcile of home meds (7) Anxiety and depression Conclusion/Plan: stable, reconcile of home meds (8) Hyponatremia Conclusion/Plan: it appear from hypovolum hyponatremia IVF of NS lab monitor (9) Diarrhea Conclusion/Plan: pt had diarrhea in the home but now pt report she did not have will check C.Diff, stool culture precaution of C.Diff, isolation until proved (10) Full code status Conclusion/Plan: pt ask for full code now. - Lab Results Fish Bones: 08/15/18 07:33 08/15/18 07:33 Core Measures - Anticipated LOS I expect patient to be DC'd or transferred within 96 hours.: Yes - DVT/VTE - Prophylaxis VTE/DVT Device ordered at admit?: Yes VTE/DVT Prophylaxis med ordered at admit?: Yes
[2018-08-15] MEDS: LACTATED RINGERS 1,000 ML IV SCH (11:26)
[2018-08-15] MEDS ORDERED: levoFLOXacin 500 MG/100 ML 500 MG/100 ML BAG IV SCH ×2 (13:00→17:00)
[2018-08-15] MEDS: ACETAMINOPHEN 325 MG TABLET PO PRN ×3 (13:44→18:39)
[2018-08-15] MEDS: metroNIDAZOLE 500 MG/100 ML 500 MG/100 ML BAG IV SCH ×2 (13:44→22:09)
[2018-08-15] MEDS: busPIRone 5 MG TABLET PO SCH ×2 (13:46→22:03)
[2018-08-15] MEDS ORDERED: ACETAMINOPHEN 1,000 MG/100 ML 100 ML IV PRN (14:03)
[2018-08-15] MEDS: SODIUM CHLORIDE FLUSH 0.9% 10 ML SYRINGE IVP SCH (18:27)
[2018-08-15] MEDS: [UNRECOGNIZED DRUG - OTHER] PO SCH (22:03)
[2018-08-16] MEDS ORDERED: BISACODYL 10 MG SUPP PR ONE (00:22)
[2018-08-16] MEDS: LACTATED RINGERS 1,000 ML IV SCH ×4 (00:24→12:05)
[2018-08-16] MEDS: ACETAMINOPHEN 325 MG TABLET PO PRN ×2 (00:24→19:20)
[2018-08-16 05:31] LABS: BASOPHILS % (AUTO) 0.4 %; EOSINOPHILS % (AUTO) 0.5 %; HGB - HEMOGLOBIN 10.1 g/dL (12.0-16.0); LYMPHOCYTES # (AUTO) 0.7 10^3/uL (1.5-3.5); LYMPHOCYTES % (AUTO) 7.3 %; MEAN CORPUSCULAR HEMOGLOBIN 29.8 pg (27.0-31.0); MEAN CORPUSCULAR HGB CONC 34.1 g/dL (32.0-36.0); MEAN CORPUSCULAR VOLUME 87.1 fL (81.0-99.0); MEAN PLATELET VOLUME 7.7 fL (7.9-10.8); MONOCYTES # (AUTO) 0.4 10^3/uL (0.0-1.0); MONOCYTES % (AUTO) 3.9 %; NEUTROPHILS # (AUTO) 7.9 10^3/uL (1.5-6.6); NEUTROPHILS % (AUTO) 87.9 %; PLT - PLATELET COUNT 169 10^3/uL (130-450); RED BLOOD COUNT 3.39 10^6/uL (4.20-5.40); RED CELL DISTRIBUTION WIDTH 13.7 % (12.0-15.0)
[2018-08-16 05:43] LABS: ALBUMIN 2.3 g/dL (3.2-5.5); ALBUMIN/GLOBULIN RATIO 0.7 (1.0-2.2); BILIRUBIN,TOTAL 0.7 mg/dL (0.2-1.0); CALCIUM 8.3 mg/dL (8.5-10.3); CREATININE 1.4 mg/dL (0.4-1.0); MAGNESIUM 1.7 mg/dL (1.7-2.8); TOTAL PROTEIN 5.8 g/dL (6.7-8.2)
[2018-08-16] MEDS: SODIUM CHLORIDE FLUSH 0.9% 10 ML SYRINGE IVP PRN ×3 (06:07→17:14)
[2018-08-16] MEDS: SODIUM CHLORIDE FLUSH 0.9% 10 ML SYRINGE IVP SCH ×3 (06:07→16:20)
[2018-08-16] MEDS: busPIRone 5 MG TABLET PO SCH ×3 (06:08→21:01)
[2018-08-16] MEDS: LEVOTHYROXINE 75 MCG TABLET PO SCH (06:09)
[2018-08-16] MEDS: metroNIDAZOLE 500 MG/100 ML 500 MG/100 ML BAG IV SCH ×3 (06:09→22:04)
[2018-08-16] MEDS: levoFLOXacin 750 MG/150 ML 750 MG/150 ML BAG IV SCH (08:02)
[2018-08-16 08:11] LABS: ABSOLUTE RETICS # AUTO 0.025 10^6/uL (0.020-0.110); MEAN RETIC VALUE 91.4; RED BLOOD COUNT 3.38 10^6/uL (4.20-5.40)
[2018-08-16] MEDS: SERTRALINE 50 MG TABLET PO SCH (08:19)
[2018-08-16] MEDS: lamoTRIgine 100 MG TABLET PO SCH (08:20)
[2018-08-16] MEDS: DOCUSATE SODIUM 250 MG CAPSULE PO SCH (08:20)
[2018-08-16] MEDS: LISINOPRIL 5 MG TABLET PO SCH (08:20)
[2018-08-16] MEDS: SENNA 8.6 MG TABLET PO SCH (08:20)
[2018-08-16] MEDS: MULTIVITAMIN TABLET PO SCH (08:20)
[2018-08-16] MEDS: POLYETHYLENE GLYCOL 3350 17 GM PACKET PO SCH (08:22)
[2018-08-16] MEDS: [UNRECOGNIZED DRUG - OTHER] PO SCH ×2 (08:22→21:01)
[2018-08-16] MEDS: HEPARIN 5,000 UNIT/ML VIAL SUBQ SCH ×2 (08:23→20:58)
[2018-08-16 08:27] LABS: FERRITIN 444.9 ng/mL (11.0-306.8)
[2018-08-16 08:45] LABS: % IRON SATURATION 7 % (20-50); IRON 11 ug/dL (28-170); TOTAL IRON BINDING CAPACITY 151 ug/dL (250-450); TRANSFERRIN 108 mg/dL (192-382)
--- NOTE | 2018-08-16 12:41 | PROVIDER PROGRESS NOTE ---
Subjective - Prog Note Date Prog Note Date: 08/16/18 - Subjective Pt reports feeling: Improved Subjective: pt report she feel better, abdominal pain is better controlled. pt ask for soft diet. pt report she has no fever today. Current Medications - Current Medications Current Medications: Active Medications Acetaminophen (Tylenol) 650 mg PO Q4HR PRN PRN Reason: Pain or Fever > 38C (100.4F) Last Admin: 08/16/18 00:24 Dose: 650 mg Buspirone HCl (Buspar) 10 mg PO TID [facility] Last Admin: 08/16/18 15:21 Dose: 10 mg Docusate Sodium (Colace 250mg Capsule) 250 - 500 mg PO DAILY [facility] Last Admin: 08/16/18 08:20 Dose: 250 mg Heparin Sodium (Porcine) () 5,000 unit SUBQ BID [facility] Last Admin: 08/16/18 08:23 Dose: 5,000 unit Metronidazole (Flagyl 500 Mg/100 Ml) 500 mg in 100 mls @ 100 mls/hr IV Q8H [facility] Last Admin: 08/16/18 15:22 Dose: 100 mls/hr Levofloxacin (Levaquin 750 Mg/150 Ml) 750 mg in 150 mls @ 100 mls/hr IV Q24H [facility] Last Infusion: 08/16/18 15:51 Dose: Infused Acetaminophen (Ofirmev) 100 mls @ 400 mls/hr IV Q6HR PRN PRN Reason: PAIN Lactated Ringer's (Lr) 1,000 mls @ 100 mls/hr IV .Q10H [facility] Stop: 08/17/18 03:47 Last Admin: 08/16/18 12:05 Dose: 100 mls/hr Lamotrigine (Lamictal) 100 mg PO DAILY [facility] Last Admin: 08/16/18 08:20 Dose: 100 mg Levothyroxine Sodium (Synthroid) 75 mcg PO QDAC [facility] Last Admin: 08/16/18 06:09 Dose: 75 mcg Lisinopril (Zestril) 5 mg PO DAILY [facility] Last Admin: 08/16/18 08:20 Dose: 5 mg Morphine Sulfate (Morphine) 1 mg IVP Q1HR PRN PRN Reason: PAIN Last Admin: 08/15/18 12:45 Dose: 1 mg Multivitamins (Theragran) 1 tab PO DAILY [facility] Last Admin: 08/16/18 08:20 Dose: 1 tab Ondansetron HCl (Zofran Odt) 4 mg TL Q4HR PRN PRN Reason: Nausea / Vomiting Pardeep-Mag Complex 300- (150 Mg Tab) 2 each PO BID [facility] Last Admin: 08/16/18 08:22 Dose: 2 each Polyethylene Glycol (Miralax) 17 gm PO DAILY [facility] Last Admin: 08/16/18 08:22 Dose: 17 gm Senna (Senokot) 8.6 - 17.2 mg PO DAILY [facility] Last Admin: 08/16/18 08:20 Dose: 8.6 mg Sertraline HCl (Zoloft) 100 mg PO DAILY [facility] Last Admin: 08/16/18 08:19 Dose: 100 mg Sodium Chloride (Normal Saline Flush 0.9%) 10 ml IVP PRN PRN PRN Reason: NEEDED PER PROVIDER ORDERS Last Admin: 08/16/18 15:23 Dose: 10 ml Sodium Chloride (Normal Saline Flush 0.9%) 10 ml IVP 0100,0900,1700 [facility] Last Admin: 08/16/18 09:54 Dose: Not Given Levothyroxine [Synthroid] 75 mcg PO DAILY 04/03/14 Acetaminophen [Tylenol Extra Strength] 500 - 1,000 mg PO TID PRN 08/15/18 Buspirone HCl 10 mg PO TID 08/15/18 Calcium/Magnesium/Vitamin D3 [Pardeep-Mag Complex 300-150 mg Tab] 2 each PO BID 08/15/18 Lisinopril 5 mg PO DAILY 08/15/18 Multivitamin [Theragran] 1 each PO DAILY 08/15/18 [place]-3 Fatty Acids/Fish Oil [[place]-3 Fish Oil 1,000 mg Sfgl] 1 each PO DAILY 08/15/18 Sertraline HCl [Zoloft] 100 mg PO DAILY 08/15/18 hydroCHLOROthiazide [Hydrochlorothiazide] 25 mg PO DAILY 08/15/18 lamoTRIgine [LaMICtal] 100 mg PO DAILY 08/15/18 Objective - Vital Signs/Intake & Output Reviewed Vital Signs: Yes Vital Signs: Vital Signs x48h Temp Pulse Resp BP Pulse Ox 08/16/18 11:37 36.9 C 74 16 133/70 H 98 08/16/18 07:44 37.4 C 80 18 132/65 H 94 08/16/18 05:00 36.9 C 80 16 135/69 H 96 Intake & Output: Intake & Output 08/13/18 08/14/18 08/15/18 08/16/18 23:59 23:59 23:59 23:59 Intake Total 1100 3175.000 1468.333 Output Total 600 Balance 1100 2575.000 1468.333 - Objective General Appearance: positive: No acute distress, Alert. negative: Lethargic Eyes Bilateral: positive: Normal inspection, PERRL, No lid inflammation, Conjunc tivae nml ENT: positive: ENT inspection nml, Pharynx nml, No signs of dehydration. negative: Purulent nasal drainage, Pharyngeal erythema, Oral lesions Neck: positive: Nml inspection, Thyroid nml, No JVD, Trachea midline. negative: Thyromegaly, Lymphadenopathy (R), Lymphadenopathy (L), Stiff neck, Swelling/bruising, Tracheal deviation Respiratory: positive: Chest non-tender, No respiratory distress, Breath sounds nml. negative: Wheezes, Rales, Rhonchi Cardiovascular: positive: Regular rate & rhythm, No murmur, No gallop. negative: Irregularly irregular, Extrasystoles, Tachycardia, Bradycardia, JVD present, Systolic murmur, Diastolic murmur Peripheral Pulses: 2+ Radial (R), 2+ Radial (L), 2+ Dorsalis pedis (R), 2+ Dorsalis pedis (L) Abdomen: positive: No organomegaly, Nml bowel sounds, No distention. negative: Tenderness, Guarding, Rebound Back: positive: Nml inspection. negative: CVA tenderness (R), CVA tenderness (L) Skin: positive: Color nml, No rash, Warm, Dry. negative: Cyanosis, Diaphoresis, Pallor Extremities: positive: Non-tender, Full ROM, Nml appearance. negative: Calf tenderness, Joint swelling, Tatum's sign/cords Neurologic/Psychiatric: positive: Oriented x3, Motor nml, Sensation nml, Mood/affect nml. negative: Weakness, Sensory loss, Facial droop, Slurred/abnml speech, Depressed mood/affect - Lab Results Fish Bones: 08/16/18 05:20 08/16/18 05:20 Other Labs: Lab Results x24hrs 08/16/18 08/16/18 08/16/18 Range/Units 05:20 05:20 05:20 WBC (4.8-10.8) x10^3/uL RBC (4.20-5.40) 10^6/uL Hgb (12.0-16.0) g/dL Hct (37.0-47.0) % MCV (81.0-99.0) fL MCH (27.0-31.0) pg MCHC (32.0-36.0) g/dL RDW (12.0-15.0) % Plt Count (130-450) 10^3/uL MPV (7.9-10.8) fL Reticulocyte % (Auto) (0.5-2.3) % Neut # (Auto) (1.5-6.6) 10^3/uL Lymph # (Auto) (1.5-3.5) 10^3/uL Ray # (Auto) (0.0-1.0) 10^3/uL Eos # (Auto) (0.0-0.7) 10^3/uL Baso # (Auto) (0.0-0.1) 10^3/uL Absolute Nucleated RBC x10^3/uL Nucleated RBC % /100WBC Absolute Retic (0.020-0.110) 10^6/uL Sodium (135-145) mmol/L Potassium (3.5-5.0) mmol/L Chloride (101-111) mmol/L Carbon Dioxide (21-32) mmol/L Anion Gap (6-13) BUN (6-20) mg/dL Creatinine (0.4-1.0) mg/dL Estimated GFR (MDRD) (>89) Glucose (70-100) mg/dL Calcium (8.5-10.3) mg/dL Magnesium (1.7-2.8) mg/dL Iron 11 L (28-170) ug/dL TIBC 151 L (250-450) ug/dL % Saturation 7 L (20-50) % Transferrin 108 L (192-382) mg/dL Ferritin 444.9 H (11.0-306.8) ng/mL Total Bilirubin (0.2-1.0) mg/dL AST (10-42) IU/L ALT (10-60) IU/L Alkaline Phosphatase (42-121) IU/L Lactate Dehydrogenase 112 (91-225) IU/L Total Protein (6.7-8.2) g/dL Albumin (3.2-5.5) g/dL Globulin (2.1-4.2) g/dL Albumin/Globulin Ratio (1.0-2.2) Vitamin B12 1405 H (180-914) pg/mL C. difficile Tox B Gene (NEGATIVE) 08/16/18 08/16/18 08/16/18 Range/Units 05:20 05:20 05:20 WBC 9.0 (4.8-10.8) x10^3/uL RBC 3.38 L 3.39 L (4.20-5.40) 10^6/uL Hgb 10.1 L (12.0-16.0) g/dL Hct 29.5 L (37.0-47.0) % MCV 87.1 (81.0-99.0) fL MCH 29.8 (27.0-31.0) pg MCHC 34.1 (32.0-36.0) g/dL RDW 13.7 (12.0-15.0) % Plt Count 169 (130-450) 10^3/uL MPV 7.7 L (7.9-10.8) fL Reticulocyte % (Auto) 0.75 (0.5-2.3) % Neut # (Auto) 7.9 H (1.5-6.6) 10^3/uL Lymph # (Auto) 0.7 L (1.5-3.5) 10^3/uL Ray # (Auto) 0.4 (0.0-1.0) 10^3/uL Eos # (Auto) 0.0 (0.0-0.7) 10^3/uL Baso # (Auto) 0.0 (0.0-0.1) 10^3/uL Absolute Nucleated RBC 0.00 x10^3/uL Nucleated RBC % 0.0 /100WBC Absolute Retic 0.025 (0.020-0.110) 10^6/uL Sodium 131 L (135-145) mmol/L Potassium 3.7 (3.5-5.0) mmol/L Chloride 101 (101-111) mmol/L Carbon Dioxide 21 (21-32) mmol/L Anion Gap 9.0 (6-13) BUN 16 (6-20) mg/dL Creatinine 1.4 H (0.4-1.0) mg/dL Estimated GFR (MDRD) 38 L (>89) Glucose 101 H (70-100) mg/dL Calcium 8.3 L (8.5-10.3) mg/dL Magnesium 1.7 (1.7-2.8) mg/dL Iron (28-170) ug/dL TIBC (250-450) ug/dL % Saturation (20-50) % Transferrin (192-382) mg/dL Ferritin (11.0-306.8) ng/mL Total Bilirubin 0.7 (0.2-1.0) mg/dL AST 17 (10-42) IU/L ALT 16 (10-60) IU/L Alkaline Phosphatase 66 (42-121) IU/L Lactate Dehydrogenase (91-225) IU/L Total Protein 5.8 L (6.7-8.2) g/dL Albumin 2.3 L (3.2-5.5) g/dL Globulin 3.5 (2.1-4.2) g/dL Albumin/Globulin Ratio 0.7 L (1.0-2.2) Vitamin B12 (180-914) pg/mL C. difficile Tox B Gene (NEGATIVE) 08/15/18 Range/Units 09:45 WBC (4.8-10.8) x10^3/uL RBC (4.20-5.40) 10^6/uL Hgb (12.0-16.0) g/dL Hct (37.0-47.0) % MCV (81.0-99.0) fL MCH (27.0-31.0) pg MCHC (32.0-36.0) g/dL RDW (12.0-15.0) % Plt Count (130-450) 10^3/uL MPV (7.9-10.8) fL Reticulocyte % (Auto) (0.5-2.3) % Neut # (Auto) (1.5-6.6) 10^3/uL Lymph # (Auto) (1.5-3.5) 10^3/uL Ray # (Auto) (0.0-1.0) 10^3/uL Eos # (Auto) (0.0-0.7) 10^3/uL Baso # (Auto) (0.0-0.1) 10^3/uL Absolute Nucleated RBC x10^3/uL Nucleated RBC % /100WBC Absolute Retic (0.020-0.110) 10^6/uL Sodium (135-145) mmol/L Potassium (3.5-5.0) mmol/L Chloride (101-111) mmol/L Carbon Dioxide (21-32) mmol/L Anion Gap (6-13) BUN (6-20) mg/dL Creatinine (0.4-1.0) mg/dL Estimated GFR (MDRD) (>89) Glucose (70-100) mg/dL Calcium (8.5-10.3) mg/dL Magnesium (1.7-2.8) mg/dL Iron (28-170) ug/dL TIBC (250-450) ug/dL % Saturation (20-50) % Transferrin (192-382) mg/dL Ferritin (11.0-306.8) ng/mL Total Bilirubin (0.2-1.0) mg/dL AST (10-42) IU/L ALT (10-60) IU/L Alkaline Phosphatase (42-121) IU/L Lactate Dehydrogenase (91-225) IU/L Total Protein (6.7-8.2) g/dL Albumin (3.2-5.5) g/dL Globulin (2.1-4.2) g/dL Albumin/Globulin Ratio (1.0-2.2) Vitamin B12 (180-914) pg/mL C. difficile Tox B Gene NEGATIVE (NEGATIVE) ABX Reporting Has patient been on IV antibiotics over the past 48 hours?: Yes Sepsis Event Note (H) - Evaluation Current Stage of Sepsis: Ruled out Possible source of Sepsis: positive: Genitourinary Assessment/Plan - Problem List (1) Abdominal pain Impression: 08/16 pt report her abdominal pain is good controlled continue antibiotics treatment with Flagyl and Levaquin pain control anti-emesis PRN, pain controlled pt report she had abdominal pain for couple of months. CT of abdomen and pelvis indicate definite inflammation partially contiguous with cecum and along the right lateral conal fascia with slight inflammation contiguous with right kidney and right ureter. It appear infection colitis antibiotics treatment with Flagyl and Levaquin pain control anti-emesis PRN (2) Bacteremia due to Gram-negative bacteria Conclusion/Plan: 08/16 blood culture is positive for Ecoli, sensitivity study is pending IVF of NS vital and lab test monitor closely, precaution for sepsis. continue antibiotics blood culture in tube both are positive for gram-negative bacilli. pt's UA reveals UTI, pt reported she was treated with Macrobid in the office, but still show UTI in today test. Also pt had abdominal pain for couple months, it appears colitis. This two resource could be the cause pt had bacteremia. pt has normal WBC, no fever in ER, but with low side of BP. treat with antibiotics Levaquin, blood culture and sensitivity are pending, will followup IVF of NS vital and lab test monitor closely, precaution for sepsis. (3) Acute kidney injury Conclusion/Plan: 08/16 slight improved continue IVF, and lab monitor pt's creatinine increase to 1.7 from 0,9 two days. It seems dehydration appear the cause. pt report she had N/V for two days with diarrhea. IVF lab check renal function hold nephrolotixin agents (4) UTI (urinary tract infection) Conclusion/Plan: pt was treated with Macrobid but UA still reveals UTI treat with Levaquin, following UA culture (5) HTN (hypertension) Conclusion/Plan: slight low BP, hold home BP IVF, precaution sepsis. vital monitor (6) Hypothyroidism Conclusion/Plan: stable, will check TSH, reconcile of home meds (7) Anxiety and depression Conclusion/Plan: stable, reconcile of home meds (8) Hyponatremia Conclusion/Plan: 08/16 improved. Na 131, continue IVF, lab monitor it appear from hypovolum hyponatremia IVF of NS lab monitor (9) Diarrhea Conclusion/Plan: 08/16, pt denies to have more diarrhea. pt had diarrhea in the home but now pt report she did not have will check C.Diff, stool culture precaution of C.Diff, isolation until proved Qualifiers: Abdominal location: generalized Qualified Code(s): R10.84 - Generalized abdominal pain
[2018-08-16] MEDS: FERROUS SULFATE 325 MG TABLET PO SCH (17:14)
[2018-08-17] MEDS: SODIUM CHLORIDE FLUSH 0.9% 10 ML SYRINGE IVP SCH ×3 (00:10→16:27)
[2018-08-17] MEDS: TEMAZEPAM 7.5 MG CAPSULE PO PRN ×2 (00:15→22:28)
[2018-08-17] MEDS: ACETAMINOPHEN 325 MG TABLET PO PRN ×2 (00:15→16:27)
[2018-08-17 05:48] LABS: BASOPHILS % (AUTO) 0.2 %; EOSINOPHILS % (AUTO) 0.5 %; HGB - HEMOGLOBIN 10.6 g/dL (12.0-16.0); LYMPHOCYTES # (AUTO) 0.7 10^3/uL (1.5-3.5); LYMPHOCYTES % (AUTO) 7.6 %; MEAN CORPUSCULAR HEMOGLOBIN 29.6 pg (27.0-31.0); MEAN CORPUSCULAR HGB CONC 33.4 g/dL (32.0-36.0); MEAN CORPUSCULAR VOLUME 88.4 fL (81.0-99.0); MEAN PLATELET VOLUME 7.4 fL (7.9-10.8); MONOCYTES # (AUTO) 0.5 10^3/uL (0.0-1.0); MONOCYTES % (AUTO) 5.6 %; NEUTROPHILS # (AUTO) 8.2 10^3/uL (1.5-6.6); NEUTROPHILS % (AUTO) 86.1 %; PLT - PLATELET COUNT 221 10^3/uL (130-450); RED BLOOD COUNT 3.57 10^6/uL (4.20-5.40); RED CELL DISTRIBUTION WIDTH 13.9 % (12.0-15.0); WHITE BLOOD COUNT 9.5 x10^3/uL (4.8-10.8)
[2018-08-17 05:57] LABS: ALBUMIN 2.4 g/dL (3.2-5.5); ALBUMIN/GLOBULIN RATIO 0.6 (1.0-2.2); BILIRUBIN,TOTAL 0.7 mg/dL (0.2-1.0); CALCIUM 8.7 mg/dL (8.5-10.3); CREATININE 1.3 mg/dL (0.4-1.0); MAGNESIUM 1.7 mg/dL (1.7-2.8); TOTAL PROTEIN 6.1 g/dL (6.7-8.2)
[2018-08-17] MEDS: LEVOTHYROXINE 75 MCG TABLET PO SCH (06:21)
[2018-08-17] MEDS: metroNIDAZOLE 500 MG/100 ML 500 MG/100 ML BAG IV SCH ×3 (06:21→21:47)
[2018-08-17] MEDS: SODIUM CHLORIDE FLUSH 0.9% 10 ML SYRINGE IVP PRN (06:23)
[2018-08-17] MEDS: busPIRone 5 MG TABLET PO SCH ×3 (06:31→21:41)
[2018-08-17] MEDS: HEPARIN 5,000 UNIT/ML VIAL SUBQ SCH (08:19)
[2018-08-17] MEDS: levoFLOXacin 750 MG/150 ML 750 MG/150 ML BAG IV SCH (08:20)
[2018-08-17] MEDS: MULTIVITAMIN TABLET PO SCH (08:22)
[2018-08-17] MEDS: DOCUSATE SODIUM 250 MG CAPSULE PO SCH (08:22)
[2018-08-17] MEDS: FERROUS SULFATE 325 MG TABLET PO SCH (08:22)
[2018-08-17] MEDS: LISINOPRIL 5 MG TABLET PO SCH (08:23)
[2018-08-17] MEDS: lamoTRIgine 100 MG TABLET PO SCH (08:23)
[2018-08-17] MEDS: SERTRALINE 50 MG TABLET PO SCH (08:23)
[2018-08-17] MEDS: SENNA 8.6 MG TABLET PO SCH (08:25)
[2018-08-17] MEDS: POLYETHYLENE GLYCOL 3350 17 GM PACKET PO SCH (08:25)
[2018-08-17] MEDS: [UNRECOGNIZED DRUG - OTHER] PO SCH ×2 (08:25→21:41)
--- NOTE | 2018-08-17 11:41 | PROVIDER PROGRESS NOTE ---
Subjective - Prog Note Date Prog Note Date: 08/17/18 Prog Note Time: 11:39 - Subjective Pt reports feeling: Improved Subjective: Anna Rodriguez) has no complaints and is enjoying her meals. She denies shortness of breath, a cough, dizziness, a rash, chest pain, nausea, vomiting, or diarrhea. Current Medications - Current Medications Current Medications: Active Medications: Acetaminophen (Tylenol) 650 mg PO Q4HR PRN Buspirone HCl (Buspar) 10 mg PO TID [facility] Docusate Sodium (Colace 250mg Capsule) 250 - 500 mg PO DAILY [facility] Ferrous Sulfate (Feosol) 325 mg PO DAILYWM [facility] Lovenox 40 SQ daily Metronidazole (Flagyl 500 Mg/100 Ml) 500 mg in 100 mls @ 100 mls/hr IV Q8H [facility] Levofloxacin (Levaquin 750 Mg/150 Ml) 750 mg in 150 mls @ 100 mls/hr IV Q24H [facility] Lamotrigine (Lamictal) 100 mg PO DAILY [facility] Levothyroxine Sodium (Synthroid) 75 mcg PO QDAC [facility] Lisinopril (Zestril) 5 mg PO DAILY [facility] Multivitamins (Theragran) 1 tab PO DAILY [facility] Ondansetron HCl (Zofran Odt) 4 mg TL Q4HR PRN Pardeep-Mag Complex 300- (150 Mg Tab) 2 each PO BID [facility] Polyethylene Glycol (Miralax) 17 gm PO DAILY [facility] Senna (Senokot) 8.6 - 17.2 mg PO DAILY [facility] Sertraline HCl (Zoloft) 100 mg PO DAILY [facility] Temazepam (Restoril) 7.5 mg PO QPM PRN HOME meds: Levothyroxine [Synthroid] 75 mcg PO DAILY 04/03/14 Acetaminophen [Tylenol Extra Strength] 500 - 1,000 mg PO TID PRN 08/15/18 Buspirone HCl 10 mg PO TID 08/15/18 Calcium/Magnesium/Vitamin D3 [Pardeep-Mag Complex 300-150 mg Tab] 2 each PO BID 08/15/18 Lisinopril 5 mg PO DAILY 08/15/18 Multivitamin [Theragran] 1 each PO DAILY 08/15/18 [place]-3 Fatty Acids/Fish Oil [[place]-3 Fish Oil 1,000 mg Sfgl] 1 each PO DAILY 08/15/18 Sertraline HCl [Zoloft] 100 mg PO DAILY 08/15/18 hydroCHLOROthiazide [Hydrochlorothiazide] 25 mg PO DAILY 08/15/18 lamoTRIgine [LaMICtal] 100 mg PO DAILY 08/15/18 Objective - Vital Signs/Intake & Output Reviewed Vital Signs: Yes Vital Signs: Vital Signs x48h Temp Pulse Resp BP Pulse Ox 08/17/18 08:23 36.9 C 89 16 128/67 98 Intake & Output: Intake & Output 08/14/18 08/15/18 08/16/18 08/17/18 23:59 23:59 23:59 23:59 Intake Total 1100 3175.000 4488.333 680 Output Total 600 Balance 1100 2575.000 4488.333 680 - Objective General Appearance: positive: No acute distress, Alert Eyes Bilateral: positive: Normal inspection, PERRL ENT: positive: ENT inspection nml, Pharynx nml, No signs of dehydration Neck: positive: Nml inspection, Thyroid nml, No JVD, Trachea midline Respiratory: positive: Chest non-tender, No respiratory distress, Breath sounds nml Cardiovascular: positive: Regular rate & rhythm, No gallop, Systolic murmur (faint) Peripheral Pulses: 1+ Radial (R), 1+ Radial (L) Abdomen: positive: Non-tender, Nml bowel sounds, Other (rounded, soft) Back: positive: Nml inspection Skin: positive: Color nml, No rash, Warm, Dry Extremities: positive: Non-tender, Full ROM, Nml appearance Neurologic/Psychiatric: positive: Oriented x3, CN's nml (2-12), Motor nml, Sensa tion nml, Mood/affect nml Reflexes: Bicep (R): 3+, Bicep (L): 3+ - Lab Results Fish Bones: 08/17/18 05:30 08/17/18 05:30 Other Labs: Lab Results x24hrs 08/17/18 08/17/18 08/15/18 Range/Units 05:30 05:30 09:45 WBC 9.5 (4.8-10.8) x10^3/uL RBC 3.57 L (4.20-5.40) 10^6/uL Hgb 10.6 L (12.0-16.0) g/dL Hct 31.6 L (37.0-47.0) % MCV 88.4 (81.0-99.0) fL MCH 29.6 (27.0-31.0) pg MCHC 33.4 (32.0-36.0) g/dL RDW 13.9 (12.0-15.0) % Plt Count 221 (130-450) 10^3/uL MPV 7.4 L (7.9-10.8) fL Neut # (Auto) 8.2 H (1.5-6.6) 10^3/uL Lymph # (Auto) 0.7 L (1.5-3.5) 10^3/uL Andrews # (Auto) 0.5 (0.0-1.0) 10^3/uL Eos # (Auto) 0.0 (0.0-0.7) 10^3/uL Baso # (Auto) 0.0 (0.0-0.1) 10^3/uL Absolute Nucleated RBC 0.00 x10^3/uL Nucleated RBC % 0.0 /100WBC Sodium 136 (135-145) mmol/L Potassium 3.6 (3.5-5.0) mmol/L Chloride 104 (101-111) mmol/L Carbon Dioxide 23 (21-32) mmol/L Anion Gap 9.0 (6-13) BUN 12 (6-20) mg/dL Creatinine 1.3 H (0.4-1.0) mg/dL Estimated GFR (MDRD) 41 L (>89) Glucose 108 H (70-100) mg/dL Calcium 8.7 (8.5-10.3) mg/dL Magnesium 1.7 (1.7-2.8) mg/dL Total Bilirubin 0.7 (0.2-1.0) mg/dL AST 26 (10-42) IU/L ALT 26 (10-60) IU/L Alkaline Phosphatase 75 (42-121) IU/L Total Protein 6.1 L (6.7-8.2) g/dL Albumin 2.4 L (3.2-5.5) g/dL Globulin 3.7 (2.1-4.2) g/dL Albumin/Globulin Ratio 0.6 L (1.0-2.2) C. difficile Tox B Gene NEGATIVE (NEGATIVE) ABX Reporting Has patient been on IV antibiotics over the past 48 hours?: Yes Sepsis Event Note (H) - Evaluation Current Stage of Sepsis: Ruled out Possible source of Sepsis: positive: Genitourinary Assessment/Plan - Problem List (1) Bacteremia due to Gram-negative bacteria Impression: - BC x2 dated 08/14- both + for e. coli - BC x2 dated 08/16- both NGTD - Most likely source is urine - Afebrile today, yesterday temp max was 38.2 C - Improved overall wellbeing today - Faint murmur on exam, concerning for possible valve vegetation - IV levofloxacin and IV flagyl continue today Plan: Continue IV antibiotics, await echo results to rule out endocarditis (2) HTN (hypertension) Impression: - HCTZ at home, initially on hold due to acute illness -Lisinopril continues - Now resumed Plan: Consider changing B/P management after obtaining echo results Qualifiers: Hypertension type: essential hypertension Qualified Code(s): I10 - Essential (primary) hypertension (3) UTI (urinary tract infection) Impression: - Imaging confirmed kidney abnormalities - Abdominal pain upon admission, now resolved - Diarrhea improved- nearly resolved - BCs x2 show e. coli, consistent with pyelonephritis Plan: Continue IV treatment with levofloxacin with plans to transition to oral agents in the AM based on sensitivities Qualifiers: Urinary tract infection type: acute pyelonephritis Qualified Code(s): N10 - Acute pyelonephritis (4) Anxiety and depression Impression: - Home meds are Buspar and Zoloft Plan: Monitor for worsening depression or anxiety, continue meds (5) Colitis Impression: - After reviewing imaging, colitis does not appear to be acute, rather chronic - CT results more consistent with pyelonephritis which goes with e coli bacteremia, abdominal pain, septic shock and imaging - C-diff negative - On exam, patient notes that her abdominal pain is resolved and her diarrhea is nearly resolved Plan: D/C flagyl, continue treatment for bacteremia
[2018-08-17] MEDS ORDERED: ACETAMINOPHEN 1,000 MG/100 ML 100 ML IV PRN (21:27)
[2018-08-18] MEDS: SODIUM CHLORIDE FLUSH 0.9% 10 ML SYRINGE IVP SCH ×4 (00:14→23:39)
[2018-08-18 05:45] LABS: ALBUMIN 2.8 g/dL (3.2-5.5); ALBUMIN/GLOBULIN RATIO 0.8 (1.0-2.2); BILIRUBIN,TOTAL 0.9 mg/dL (0.2-1.0); CALCIUM 8.5 mg/dL (8.5-10.3); CREATININE 1.3 mg/dL (0.4-1.0); MAGNESIUM 1.5 mg/dL (1.7-2.8); TOTAL PROTEIN 6.5 g/dL (6.7-8.2)
[2018-08-18 05:54] LABS: BASOPHILS % (AUTO) 0.2 %; EOSINOPHILS % (AUTO) 0.7 %; HGB - HEMOGLOBIN 10.7 g/dL (12.0-16.0); LYMPHOCYTES # (AUTO) 0.9 10^3/uL (1.5-3.5); LYMPHOCYTES % (AUTO) 12.8 %; MEAN CORPUSCULAR HEMOGLOBIN 29.7 pg (27.0-31.0); MEAN CORPUSCULAR HGB CONC 33.1 g/dL (32.0-36.0); MEAN CORPUSCULAR VOLUME 89.6 fL (81.0-99.0); MEAN PLATELET VOLUME 7.5 fL (7.9-10.8); MONOCYTES # (AUTO) 0.4 10^3/uL (0.0-1.0); MONOCYTES % (AUTO) 5.6 %; NEUTROPHILS # (AUTO) 5.8 10^3/uL (1.5-6.6); NEUTROPHILS % (AUTO) 80.7 %; PLT - PLATELET COUNT 262 10^3/uL (130-450); RED CELL DISTRIBUTION WIDTH 14.7 % (12.0-15.0); WHITE BLOOD COUNT 7.1 x10^3/uL (4.8-10.8)
[2018-08-18] MEDS: busPIRone 5 MG TABLET PO SCH ×2 (06:05→15:30)
[2018-08-18] MEDS: metroNIDAZOLE 500 MG/100 ML 500 MG/100 ML BAG IV SCH (06:05)
[2018-08-18] MEDS: LEVOTHYROXINE 75 MCG TABLET PO SCH (06:05)
[2018-08-18] MEDS ORDERED: MAGNESIUM SULFATE 2 GRAM 2 GM/50 ML BAG IV ONE (06:34)
[2018-08-18] MEDS ORDERED: POTASSIUM CHLORIDE INJ 40 MEQ in SODIUM CHLORIDE 0.9% 480 ML IV ONE (07:30)
[2018-08-18] MEDS: ONDANSETRON ODT 4 MG TABLET TL PRN ×2 (08:02→22:04)
[2018-08-18] MEDS: lamoTRIgine 100 MG TABLET PO SCH (09:53)
[2018-08-18] MEDS: LISINOPRIL 5 MG TABLET PO SCH (09:53)
[2018-08-18] MEDS: MULTIVITAMIN TABLET PO SCH (09:53)
[2018-08-18] MEDS: FERROUS SULFATE 325 MG TABLET PO SCH (09:53)
[2018-08-18] MEDS: SERTRALINE 50 MG TABLET PO SCH (09:53)
[2018-08-18] MEDS: DOCUSATE SODIUM 250 MG CAPSULE PO SCH (09:54)
[2018-08-18] MEDS: SENNA 8.6 MG TABLET PO SCH (09:54)
[2018-08-18] MEDS: [UNRECOGNIZED DRUG - OTHER] PO SCH (09:54)
[2018-08-18] MEDS: POLYETHYLENE GLYCOL 3350 17 GM PACKET PO SCH (09:54)
[2018-08-18] MEDS: SODIUM CHLORIDE FLUSH 0.9% 10 ML SYRINGE IVP PRN ×3 (09:55→11:50)
[2018-08-18] MEDS: ENOXAPARIN 40 MG/0.4 ML SYRINGE SUBQ SCH (10:00)
[2018-08-18] MEDS: cefUROXime axetil 250 MG TABLET PO SCH ×2 (10:48→22:04)
[2018-08-18] MEDS ORDERED: FLUMAZENIL 0.1 MG/1 ML 5 ML MDV IVP ONE ×2 (11:21→11:35)
[2018-08-18 11:58] LABS: CALCIUM 8.5 mg/dL (8.5-10.3); CREATININE 1.2 mg/dL (0.4-1.0)
[2018-08-18 12:34] LABS: FOLATE 22.4 ng/mL (5.90 - >24.8)
--- NOTE | 2018-08-18 13:26 | PROVIDER PROGRESS NOTE ---
Subjective - Prog Note Date Prog Note Date: 08/18/18 Prog Note Time: 13:22 - Subjective Pt reports feeling: Worse Subjective: Anna cannot contribute to her exam today. She has had a change in mental status, although, not specific or consistent. Head imaging is normal. She remains afebrile and without WBC count. Presumed from levofloxacin, or poly pharmacy. Buspar and zoloft on hold. Current Medications - Current Medications Current Medications: Active Medications: Acetaminophen (Tylenol) 650 mg PO Q4HR PRN Cefuroxime Axetil (Ceftin) 500 mg PO BID [facility] Enoxaparin Sodium (Lovenox) 40 mg SUBQ DAILY [facility] Ferrous Sulfate (Feosol) 325 mg PO [facility]ILY[facility] Sodium Bicarbonate 100 meq/ (Dextrose) 1,100 mls @ 100 mls/hr IV Q11H [facility] Lamotrigine (Lamictal) 100 mg PO DAILY [facility] Levothyroxine Sodium (Synthroid) 75 mcg PO QDAC [facility] Lisinopril (Zestril) 10 mg PO DAILY [facility] Ondansetron HCl (Zofran Odt) 4 mg TL Q4HR PRN Polyethylene Glycol (Miralax) 17 gm PO DAILY [facility] Saccharomyces Boulardii (Florastor) 500 mg PO BIDWM [facility] Senna (Senokot) 8.6 - 17.2 mg PO DAILY [facility] HOME meds: Levothyroxine [Synthroid] 75 mcg PO DAILY 04/03/14 Acetaminophen [Tylenol Extra Strength] 500 - 1,000 mg PO TID PRN 08/15/18 Buspirone HCl 10 mg PO TID 08/15/18 Calcium/Magnesium/Vitamin D3 [Pardeep-Mag Complex 300-150 mg Tab] 2 each PO BID 08/15/18 Lisinopril 5 mg PO DAILY 08/15/18 Multivitamin [Theragran] 1 each PO DAILY 08/15/18 [place]-3 Fatty Acids/Fish Oil [[place]-3 Fish Oil 1,000 mg Sfgl] 1 each PO DAILY 08/15/18 Sertraline HCl [Zoloft] 100 mg PO DAILY 08/15/18 hydroCHLOROthiazide [Hydrochlorothiazide] 25 mg PO DAILY 08/15/18 lamoTRIgine [LaMICtal] 100 mg PO DAILY 08/15/18 Objective - Vital Signs/Intake & Output Reviewed Vital Signs: Yes Vital Signs: Vital Signs x48h Temp Pulse Resp BP BP Pulse Ox 08/18/18 11:16 36.4 C L 81 16 160/80 H 100 08/18/18 07:54 36.8 C 78 15 162/81 H 99 Intake & Output: Intake & Output 08/15/18 08/16/18 08/17/18 08/18/18 23:59 23:59 23:59 23:59 Intake Total 3175.000 4488.333 1710 400 Output Total 600 Balance 2575.000 4488.333 1710 400 - Objective General Appearance: positive: Alert, Moderate distress Eyes Bilateral: positive: No lid inflammation ENT: positive: Pharynx nml, Dry mucous membranes Neck: positive: Thyroid nml, No JVD, Trachea midline Respiratory: positive: Chest non-tender, No respiratory distress, Breath sounds nml Cardiovascular: positive: Regular rate & rhythm, No gallop, Systolic murmur Peripheral Pulses: 1+ Radial (R), 1+ Radial (L), 1+ Dorsalis pedis (R), 1+ Dorsalis pedis (L) Abdomen: positive: Non-tender, Nml bowel sounds, Other (soft) Back: positive: Nml inspection Skin: positive: Color nml, No rash, Warm, Dry, Other (flushed cheeks) Extremities: positive: Non-tender, Nml appearance, No pedal edema Neurologic/Psychiatric: positive: Disoriented to person, Disoriented to place, Disoriented to time, Weakness, Sensory loss, Slurred/abnml speech, Depressed mood/affect, Other (acute psychosis, change in mental status) Reflexes: Bicep (R): 2+, Bicep (L): 2+ - Lab Results Fish Bones: 08/18/18 05:05 08/18/18 11:36 Other Labs: Lab Results x24hrs 08/18/18 08/18/18 08/18/18 Range/Units 11:36 11:36 11:36 WBC (4.8-10.8) x10^3/uL RBC (4.20-5.40) 10^6/uL Hgb (12.0-16.0) g/dL Hct (37.0-47.0) % MCV (81.0-99.0) fL MCH (27.0-31.0) pg MCHC (32.0-36.0) g/dL RDW (12.0-15.0) % Plt Count (130-450) 10^3/uL MPV (7.9-10.8) fL Neut # (Auto) (1.5-6.6) 10^3/uL Lymph # (Auto) (1.5-3.5) 10^3/uL Spencer # (Auto) (0.0-1.0) 10^3/uL Eos # (Auto) (0.0-0.7) 10^3/uL Baso # (Auto) (0.0-0.1) 10^3/uL Absolute Nucleated RBC x10^3/uL Nucleated RBC % /100WBC Sodium 136 (135-145) mmol/L Potassium 3.7 (3.5-5.0) mmol/L Chloride 105 (101-111) mmol/L Carbon Dioxide 21 (21-32) mmol/L Anion Gap 10.0 (6-13) BUN 13 (6-20) mg/dL Creatinine 1.2 H (0.4-1.0) mg/dL Estimated GFR (MDRD) 45 L (>89) Glucose 110 H (70-100) mg/dL Calcium 8.5 (8.5-10.3) mg/dL Magnesium (1.7-2.8) mg/dL Total Bilirubin (0.2-1.0) mg/dL AST (10-42) IU/L ALT (10-60) IU/L Alkaline Phosphatase (42-121) IU/L Ammonia (7-35) umol/L Total Creatine Kinase 54 (22-269) IU/L Troponin I < 0.04 (<0.49) ng/mL Total Protein (6.7-8.2) g/dL Albumin (3.2-5.5) g/dL Globulin (2.1-4.2) g/dL Albumin/Globulin Ratio (1.0-2.2) Vitamin B12 1274 H (180-914) pg/mL Folate 22.40 (5.90 - >24.8) ng/mL 08/18/18 08/18/18 08/18/18 Range/Units 11:36 05:05 05:05 WBC 7.1 (4.8-10.8) x10^3/uL RBC 3.60 L (4.20-5.40) 10^6/uL Hgb 10.7 L (12.0-16.0) g/dL Hct 32.2 L (37.0-47.0) % MCV 89.6 (81.0-99.0) fL MCH 29.7 (27.0-31.0) pg MCHC 33.1 (32.0-36.0) g/dL RDW 14.7 (12.0-15.0) % Plt Count 262 (130-450) 10^3/uL MPV 7.5 L (7.9-10.8) fL Neut # (Auto) 5.8 (1.5-6.6) 10^3/uL Lymph # (Auto) 0.9 L (1.5-3.5) 10^3/uL Spencer # (Auto) 0.4 (0.0-1.0) 10^3/uL Eos # (Auto) 0.0 (0.0-0.7) 10^3/uL Baso # (Auto) 0.0 (0.0-0.1) 10^3/uL Absolute Nucleated RBC 0.00 x10^3/uL Nucleated RBC % 0.0 /100WBC Sodium 136 (135-145) mmol/L Potassium 2.8 L (3.5-5.0) mmol/L Chloride 105 (101-111) mmol/L Carbon Dioxide 22 (21-32) mmol/L Anion Gap 9.0 (6-13) BUN 13 (6-20) mg/dL Creatinine 1.3 H (0.4-1.0) mg/dL Estimated GFR (MDRD) 41 L (>89) Glucose 115 H (70-100) mg/dL Calcium 8.5 (8.5-10.3) mg/dL Magnesium 1.5 L (1.7-2.8) mg/dL Total Bilirubin 0.9 (0.2-1.0) mg/dL AST 24 (10-42) IU/L ALT 26 (10-60) IU/L Alkaline Phosphatase 71 (42-121) IU/L Ammonia 10.8 (7-35) umol/L Total Creatine Kinase (22-269) IU/L Troponin I (<0.49) ng/mL Total Protein 6.5 L (6.7-8.2) g/dL Albumin 2.8 L (3.2-5.5) g/dL Globulin 3.7 (2.1-4.2) g/dL Albumin/Globulin Ratio 0.8 L (1.0-2.2) Vitamin B12 (180-914) pg/mL Folate (5.90 - >24.8) ng/mL ABX Reporting Has patient been on IV antibiotics over the past 48 hours?: Yes Sepsis Event Note (H) - Evaluation Current Stage of Sepsis: Ruled out Possible source of Sepsis: positive: Genitourinary Assessment/Plan - Problem List (1) Acute infective psychosis Impression: per UpToDate: this syndrome is described as: -Symptoms of psychosis seen in the disorder include one or more of the following: -Hallucinations The perception of a sensory process in the absence of an ex ternal source. Hallucinations can be auditory, visual, somatic, olfactory, or gustatory. -Delusions A fixed, false belief. Delusions can be bizarre or non-bizarre. -Disorganized speech Disorganized speech patterns reflect disruption in the organization of persons thoughts. Commonly observed forms include tangentially and circumstantially -Disorganized behavior A patient with grossly disorganized behavior is often recognized by their inability to complete daily, normative tasks (eg, clothed, clean, belongings in order). In addition to the symptoms comprising diagnostic criteria for brief psychotic disorder assessment, the patient should be evaluated for other features suggestive of brief psychotic disorder: -Presence of marked stressors preceding symptom onset -Lack of negative symptoms -Confusion during the early course of illness - today the patient is found to have all of these characteristics - History of bipolar upon chart review - At times, no response to a sternal rub and later responds in a matter of fact manner with, "I am praying to the great I AM" - Other times will respond on the first attempt, for example for a blood draw - Labs including BMP, troponin, ammonia, folate, B12, blood cultures x2, and CK were all normal - 2 doses of Romazicon were given with no effect - a large back of home meds were found in the patient's room and upon pharmacy review, there were several different types of pills within one container - IV levofloxacin and IV flagyl are now stopped - No meals consumed today - Episode began last evening after getting Temazepam 7.5 mg - Head CT is normal Plan: Consider a spinal tap if fevers or WBC count appears, await UA and MUDDS urine (2) Bacteremia due to Gram-negative bacteria Impression: - BC x2 dated 08/14- both + for e. coli - BC x2 dated 08/16- both NGTD - New BCs x2 08/18/18 for change in mental status- pending - Most likely source is urine - Afebrile x greater than 48 hours - Now with new AMS, hallucinations, delirium, psychosis - Faint murmur on exam, concerning for possible valve vegetation - IV levofloxacin and IV flagyl stopped today worrisome for the Levo may be the culprit of her AMS - Started PO Ceftin, but being cautious as she has an allergy to penicillins - No rash noted upon exam this evening after one dose Plan: Continue antibiotics, await echo results to rule out endocarditis (3) HTN (hypertension) Impression: - HCTZ at home, initially on hold due to acute illness -Lisinopril continues, now increased to 10 mg - Mild hypertension noted today with a B/P of 148/90 - Added IV hydralazine if needed Plan: Continue to monitor, give Hydralazine for SBP more than 150 Qualifiers: Hypertension type: essential hypertension Qualified Code(s): I10 - Essential (primary) hypertension (4) UTI (urinary tract infection) Impression: - Imaging confirmed kidney abnormalities - Abdominal pain upon admission, now resolved - Diarrhea improved- nearly resolved - BCs x2 show e. coli, consistent with pyelonephritis - 2nd set of BCs negative, new set drawn today 08/18/2018 - Now with urinary retention from her recent change in mental status Plan: Continue PO ceftin, await culture results including new urine culture obtained via straight cath Qualifiers: Urinary tract infection type: acute pyelonephritis Qualified Code(s): N10 - Acute pyelonephritis (5) Anxiety and depression Impression: - Home meds are Buspar and Zoloft - Both stopped due to worsening mental status - Await cultures, provide frequent nursing cares during this time of presumed bibi Plan: Monitor for worsening depression or anxiety (6) Colitis Impression: - CT results more consistent with pyelonephritis which goes with e coli bacteremia, abdominal pain, septic shock and imaging - C-diff negative - On exam, patient cannot follow commands and is found to have a change in her mental status Plan: D/C flagyl, continue treatment for bacteremia- PO Ceftin
--- NOTE | 2018-08-18 14:05 | CT Report ---
Reason: acute delirium Procedure Date: 08/18/2018 Accession Number: [id number] / [id number] Procedure: CT - HEAD WO CPT Code: FULL RESULT: EXAM: CT HEAD EXAM DATE: 08/18/2018 01:50 PM. CLINICAL HISTORY: Acute delirium. COMPARISON: None. TECHNIQUE: Multiaxial CT images were obtained from the foramen magnum to the vertex. Reformats: Sagittal and coronal. IV contrast: None. In accordance with CT protocol optimization, one or more of the following dose reduction techniques were utilized for this exam: automated exposure control, adjustment of mA and/or KV based on patient size, or use of iterative reconstructive technique. FINDINGS: Please note that the examination is limited by exclusion of the skull base on axial series. Parenchyma: No intraparenchymal hemorrhage. No evidence of mass, midline shift, or CT findings of infarction. Huerta-white differentiation is distinct. Extraaxial Spaces: Normal for age. No subdural or epidural collections identified. Ventricles: Symmetric configuration. Sinuses and Orbits: Mucoid retention cyst partially imaged in the right maxillary sinus. The sinuses are otherwise within normal limits. Orbits are within normal limits. Visualized mastoid air cells are clear. Bones: No evidence of fracture or calvarial defect. Other: Subtle right supraorbital extracranial swelling. IMPRESSION: No acute intracranial abnormality is detected. Limited visualization of skull base. RADIA
[2018-08-18] MEDS: SACCHAROMYCES BOULARDII 250 MG CAPSULE PO SCH (19:07)
[2018-08-18] MEDS ORDERED: hydrALAZINE INJ 20 MG/ML VIAL IVP PRN (19:44)
[2018-08-18] MEDS: SODIUM BICARBONATE 100 MEQ in DEXTROSE 5% 1,000 ML IV SCH (20:04)
[2018-08-18 20:23] LABS: MUDS CUTOFF CONCENTRATIONS CUTOFF CONC BELOW:
[2018-08-18 20:30] LABS: BILIRUBIN,URINE NEGATIVE (NEGATIVE); GLUCOSE, URINE (UA) NEGATIVE (NEGATIVE); KETONES,URINE (UA) 15 mg/dL (NEGATIVE); LEUKOCYTE ESTERASE, URINE NEGATIVE (NEGATIVE); NITRITE,URINE NEGATIVE (NEGATIVE); OCCULT BLOOD,URINE NEGATIVE (NEGATIVE); PROTEIN,URINE NEGATIVE (NEGATIVE); UROBILINOGEN,URINE 0.2 (NORMAL) E.U./dL (NORMAL)
[2018-08-18 20:53] LABS: AMPHETAMINE SCREEN,URINE NEGATIVE (NEGATIVE); BACTERIA,URINE None Seen /HPF (None Seen); BENZODIAZEPINES SCREEN, URINE POSITIVE (NEGATIVE); CLARITY,URINE CLEAR (CLEAR); COCAINE SCREEN URINE NEGATIVE (NEGATIVE); METHADONE SCREEN, URINE NEGATIVE (NEGATIVE); METHAMPHETAMINES SCREEN, URINE NEGATIVE (NEGATIVE); OPIATE SCREEN, URINE NEGATIVE (NEGATIVE); OXYCODONE SCREEN, URINE NEGATIVE (NEGATIVE); PROPOXYPHENE SCREEN, URINE NEGATIVE (NEGATIVE); RBC,URINE 0-5 /HPF (0-5); SQUAMOUS EPITHELIAL CELL,UR RARE Squamous (<= Few); TRICYCLIC ANTIDEPRESSANT,URINE NEGATIVE (NEGATIVE)
[2018-08-19] MEDS: LEVOTHYROXINE 75 MCG TABLET PO SCH (06:39)
[2018-08-19] MEDS: SODIUM BICARBONATE 100 MEQ in DEXTROSE 5% 1,000 ML IV SCH ×2 (07:11→20:20)
[2018-08-19] MEDS ORDERED: levoFLOXacin 750 MG/150 ML 750 MG/150 ML BAG IV SCH (09:00)
[2018-08-19] MEDS: HALOPERIDOL 5 MG/ML VIAL IM PRN (09:58)
[2018-08-19] MEDS: SACCHAROMYCES BOULARDII 250 MG CAPSULE PO SCH ×2 (10:02→18:32)
[2018-08-19] MEDS: cefUROXime axetil 250 MG TABLET PO SCH ×2 (10:02→21:09)
[2018-08-19] MEDS: LISINOPRIL 5 MG TABLET PO SCH (10:02)
[2018-08-19] MEDS: FERROUS SULFATE 325 MG TABLET PO SCH (10:02)
[2018-08-19] MEDS: lamoTRIgine 100 MG TABLET PO SCH (10:04)
[2018-08-19] MEDS: ENOXAPARIN 40 MG/0.4 ML SYRINGE SUBQ SCH (10:41)
[2018-08-19] MEDS: POLYETHYLENE GLYCOL 3350 17 GM PACKET PO SCH (10:41)
[2018-08-19] MEDS: SENNA 8.6 MG TABLET PO SCH (10:41)
[2018-08-19] MEDS: SODIUM CHLORIDE FLUSH 0.9% 10 ML SYRINGE IVP SCH ×2 (10:41→17:08)
[2018-08-19] MEDS: ONDANSETRON ODT 4 MG TABLET TL PRN (11:21)
--- NOTE | 2018-08-19 11:32 | PROVIDER PROGRESS NOTE ---
Subjective - Prog Note Date Prog Note Date: 08/19/18 Prog Note Time: 09:10 - Subjective Pt reports feeling: Improved Subjective: Anna, who today goes by Melodie, is waxing and waning with her mentation. She denies any new symptoms on exam, but is speaking out of context at times. She appears generally less distressed. Current Medications - Current Medications Current Medications: Active Medications: Acetaminophen (Tylenol) 650 mg PO Q4HR PRN Cefuroxime Axetil (Ceftin) 500 mg PO BID OLEKSANDR Enoxaparin Sodium (Lovenox) 40 mg SUBQ DAILY OLEKSANDR Ferrous Sulfate (Feosol) 325 mg PO DAILYWM OLEKSANDR Haloperidol (Haldol Inj) 1 mg IM Q2H PRN Hydralazine HCl (Apresoline Inj) 10 mg IVP Q4H PRN Sodium Bicarbonate 100 meq/ (Dextrose) 1,100 mls @ 100 mls/hr IV .Q11H OLEKSANDR Lamotrigine (Lamictal) 100 mg PO DAILY OLEKSANDR Levothyroxine Sodium (Synthroid) 75 mcg PO QDAC OLEKSANDR Lisinopril (Zestril) 10 mg PO DAILY OLEKSANDR Ondansetron HCl (Zofran Odt) 4 mg TL Q4HR PRN Polyethylene Glycol (Miralax) 17 gm PO DAILY OLEKSANDR Saccharomyces Boulardii (Florastor) 500 mg PO BIDWM OLEKSANDR Senna (Senokot) 8.6 - 17.2 mg PO DAILY OLEKSANDR Levothyroxine [Synthroid] 75 mcg PO DAILY 04/03/14 Acetaminophen [Tylenol Extra Strength] 500 - 1,000 mg PO TID PRN 08/15/18 Buspirone HCl 10 mg PO TID 08/15/18 Calcium/Magnesium/Vitamin D3 [Pardeep-Mag Complex 300-150 mg Tab] 2 each PO BID 08/15/18 Lisinopril 5 mg PO DAILY 08/15/18 Multivitamin [Theragran] 1 each PO DAILY 08/15/18 [place]-3 Fatty Acids/Fish Oil [[place]-3 Fish Oil 1,000 mg Sfgl] 1 each PO DAILY 08/15/18 Sertraline HCl [Zoloft] 100 mg PO DAILY 08/15/18 hydroCHLOROthiazide [Hydrochlorothiazide] 25 mg PO DAILY 08/15/18 lamoTRIgine [LaMICtal] 100 mg PO DAILY 08/15/18 Objective - Vital Signs/Intake & Output Reviewed Vital Signs: Yes Vital Signs: Vital Signs x48h Temp Pulse Resp BP Pulse Ox 08/19/18 09:59 36.8 C 100 20 167/106 H 96 Intake & Output: Intake & Output 08/16/18 08/17/18 08/18/18 08/19/18 23:59 23:59 23:59 23:59 Intake Total 4488.333 3147 257 1558 Output Total 800 Balance 4488.333 7008 754 2915 - Objective General Appearance: positive: Alert, Moderate distress, Anxious Eyes Bilateral: positive: Normal inspection Eyes: OU Conjunctivae pale ENT: positive: Pharynx nml, Dry mucous membranes Neck: positive: Thyroid nml, No JVD, Trachea midline Respiratory: positive: Chest non-tender, No respiratory distress, Breath sounds nml Cardiovascular: positive: Regular rate & rhythm, No gallop, Systolic murmur Peripheral Pulses: 1+ Radial (R), 1+ Radial (L) Abdomen: positive: Non-tender, Nml bowel sounds Back: positive: Nml inspection Skin: positive: No rash, Warm, Dry Extremities: positive: Non-tender, Full ROM, Nml appearance, No pedal edema Neurologic/Psychiatric: positive: Disoriented to person, Disoriented to place, Disoriented to time, Weakness, Sensory loss, Slurred/abnml speech, Depressed mood/affect, Other (still with obvious manic behaviors) Reflexes: Bicep (R): 3+, Bicep (L): 3+, Knee (R): 2+, Knee (L): 2+ - Lab Results Fish Bones: 08/20/18 05:45 08/20/18 05:45 Other Labs: Lab Results x24hrs 08/18/18 08/18/18 08/18/18 Range/Units 19:52 19:52 11:36 Sodium (135-145) mmol/L Potassium (3.5-5.0) mmol/L Chloride (101-111) mmol/L Carbon Dioxide (21-32) mmol/L Anion Gap (6-13) BUN (6-20) mg/dL Creatinine (0.4-1.0) mg/dL Estimated GFR (MDRD) (>89) Glucose (70-100) mg/dL Calcium (8.5-10.3) mg/dL Ammonia (7-35) umol/L Total Creatine Kinase (22-269) IU/L Troponin I (<0.49) ng/mL Vitamin B12 1274 H (180-914) pg/mL Folate 22.40 (5.90 - >24.8) ng/mL Urine Color YELLOW Urine Clarity CLEAR (CLEAR) Urine pH 7.0 (5.0-7.5) PH Ur Specific [place] 1.015 (1.002-1.030) Urine Protein NEGATIVE (NEGATIVE) mg/dL Urine Glucose (UA) NEGATIVE (NEGATIVE) mg/dL Urine Ketones 15 H (NEGATIVE) mg/dL Urine Occult Blood NEGATIVE (NEGATIVE) Urine Nitrite NEGATIVE (NEGATIVE) Urine Bilirubin NEGATIVE (NEGATIVE) Urine Urobilinogen 0.2 (NORMAL) (NORMAL) E.U./dL Ur Leukocyte Esterase NEGATIVE (NEGATIVE) Urine RBC 0-5 (0-5) /HPF Urine WBC 0-3 (0-5) /HPF Ur Squamous Epith Cells RARE Squamous (<= Few) Urine Bacteria None Seen (None Seen) /HPF Urine Culture Comments NOT INDICATED Urine Opiates Screen NEGATIVE (NEGATIVE) Ur Oxycodone Screen NEGATIVE (NEGATIVE) Urine Methadone Screen NEGATIVE (NEGATIVE) Ur Propoxyphene Screen NEGATIVE (NEGATIVE) Ur Barbiturates Screen NEGATIVE (NEGATIVE) Ur Tricyclics Screen NEGATIVE (NEGATIVE) Ur Phencyclidine Scrn NEGATIVE (NEGATIVE) Ur Amphetamine Screen NEGATIVE (NEGATIVE) U Methamphetamines Scrn NEGATIVE (NEGATIVE) U Benzodiazepines Scrn POSITIVE H (NEGATIVE) Urine Cocaine Screen NEGATIVE (NEGATIVE) U Cannabinoids Screen NEGATIVE (NEGATIVE) 08/18/18 08/18/18 08/18/18 Range/Units 11:36 11:36 11:36 Sodium 136 (135-145) mmol/L Potassium 3.7 (3.5-5.0) mmol/L Chloride 105 (101-111) mmol/L Carbon Dioxide 21 (21-32) mmol/L Anion Gap 10.0 (6-13) BUN 13 (6-20) mg/dL Creatinine 1.2 H (0.4-1.0) mg/dL Estimated GFR (MDRD) 45 L (>89) Glucose 110 H (70-100) mg/dL Calcium 8.5 (8.5-10.3) mg/dL Ammonia 10.8 (7-35) umol/L Total Creatine Kinase 54 (22-269) IU/L Troponin I < 0.04 (<0.49) ng/mL Vitamin B12 (180-914) pg/mL Folate (5.90 - >24.8) ng/mL Urine Color Urine Clarity (CLEAR) Urine pH (5.0-7.5) PH Ur Specific [place] (1.002-1.030) Urine Protein (NEGATIVE) mg/dL Urine Glucose (UA) (NEGATIVE) mg/dL Urine Ketones (NEGATIVE) mg/dL Urine Occult Blood (NEGATIVE) Urine Nitrite (NEGATIVE) Urine Bilirubin (NEGATIVE) Urine Urobilinogen (NORMAL) E.U./dL Ur Leukocyte Esterase (NEGATIVE) Urine RBC (0-5) /HPF Urine WBC (0-5) /HPF Ur Squamous Epith Cells (<= Few) Urine Bacteria (None Seen) /HPF Urine Culture Comments Urine Opiates Screen (NEGATIVE) Ur Oxycodone Screen (NEGATIVE) Urine Methadone Screen (NEGATIVE) Ur Propoxyphene Screen (NEGATIVE) Ur Barbiturates Screen (NEGATIVE) Ur Tricyclics Screen (NEGATIVE) Ur Phencyclidine Scrn (NEGATIVE) Ur Amphetamine Screen (NEGATIVE) U Methamphetamines Scrn (NEGATIVE) U Benzodiazepines Scrn (NEGATIVE) Urine Cocaine Screen (NEGATIVE) U Cannabinoids Screen (NEGATIVE) ABX Reporting Has patient been on IV antibiotics over the past 48 hours?: No Sepsis Event Note (H) - Evaluation Current Stage of Sepsis: Ruled out Possible source of Sepsis: positive: Genitourinary Assessment/Plan - Problem List (1) Bipolar disorder, current episode manic severe with psychotic features Impression: - History of bipolar upon chart review - At times, no response to a sternal rub and later responds in a matter of fact manner with, "I am praying to the great I AM"- improved today - Other times will respond on the first attempt, for example for a blood draw, a fter a nap, or during a meal - Now urinating on her own, or incontinent and was witnessed "peeing into the sheets" - Labs including BMP, troponin, ammonia, folate, B12, blood cultures x2, and CK were all normal - a large back of home meds were found in the patient's room and upon pharmacy review, there were several different types of pills within one container - Status post IV levofloxacin and IV flagyl which may have been a triggering culprit - Increased meal consumption today - Head CT is normal Plan: Continue to monitor, resume meds on discharge (2) Bacteremia due to Escherichia coli Impression: - BC x2 dated 08/14- both + for e. coli - BC x2 dated 08/16- both NGTD - New BCs x2 08/18/18- both NGTD - Most likely source is urine - Afebrile - Now with new AMS, hallucinations, delirium, psychosis - Faint murmur on exam, concerning for possible valve vegetation, echo is negative for this - Status post IV levofloxacin and IV flagyl stopped for change in AMS - PO Ceftin without ill effects - No rash noted upon exam Plan: Continue antibiotics, and anticipate home tomorrow if mental status is improved (3) Acute infective psychosis Impression: per UpToDate: this syndrome is described as: -Symptoms of psychosis seen in the disorder include one or more of the following: -Hallucinations The perception of a sensory process in the absence of an external source. Hallucinations can be auditory, visual, somatic, olfactory, or gustatory. -Delusions A fixed, false belief. Delusions can be bizarre or non-bizarre. -Disorganized speech Disorganized speech patterns reflect disruption in the organization of persons thoughts. Commonly observed forms include tangentially and circumstantially -Disorganized behavior A patient with grossly disorganized behavior is often recognized by their inability to complete daily, normative tasks (eg, clothed, clean, belongings in order). In addition to the symptoms comprising diagnostic criteria for brief psychotic disorder assessment, the patient should be evaluated for other features suggestive of brief psychotic disorder: -Presence of marked stressors preceding symptom onset -Lack of negative symptoms -Confusion during the early course of illness - today the patient is found to have all of these characteristics - History of bipolar upon chart review - At times, no response to a sternal rub and later responds in a matter of fact manner with, "I am praying to the great I AM" - Other times will respond on the first attempt, for example for a blood draw, during nursing cares, med administration, or meals - Labs including BMP, troponin, ammonia, folate, B12, blood cultures x2, and CK were all normal, MUDDS normal - 2 doses of Romazicon were given with no effect - a large back of home meds were found in the patient's room and upon pharmacy review, there were several different types of pills within one container - Status post IV levofloxacin and IV flagyl - Increased meals consumed today - Episode began after getting Temazepam 7.5 mg, but most likely culprit is levofloxacin - Head CT is normal Plan: Consider a spinal tap if fevers or WBC count appears (4) UTI (urinary tract infection) Impression: - Imaging confirmed kidney abnormalities - Abdominal pain upon admission, now resolved - Diarrhea improved- nearly resolved - BCs x2 show e. coli, consistent with pyelonephritis - 2nd set of BCs negative, new set drawn today 08/18/2018 - Status post urinary retention from her recent change in mental status - Denies dysuria upon exam Plan: Continue PO ceftin Qualifiers: Urinary tract infection type: acute pyelonephritis Qualified Code(s): N10 - Acute pyelonephritis (5) HTN (hypertension) Impression: - HCTZ at home, initially on hold due to acute illness -Lisinopril continues, now increased to 10 mg - Mild hypertension noted today with a B/P of 148/90 - Added IV hydralazine if needed Plan: Continue to monitor, give Hydralazine for SBP more than 150 Qualifiers: Hypertension type: essential hypertension Qualified Code(s): I10 - E ssential (primary) hypertension (6) Anxiety and depression Impression: - Home meds are Buspar and Zoloft - Both stopped due to worsening mental status - Await cultures, provide frequent nursing cares during this time of presumed bibi Plan: Monitor for worsening depression or anxiety (7) Colitis Impression: - CT results more consistent with pyelonephritis which goes with e coli bacteremia, abdominal pain, septic shock and imaging - C-diff negative - On exam, patient cannot follow commands and is found to have a change in her mental status - Status post IV flagyl Plan: Continue PO Ceftin
[2018-08-20] MEDS: SODIUM CHLORIDE FLUSH 0.9% 10 ML SYRINGE IVP SCH ×4 (00:27→23:47)
[2018-08-20] MEDS: SODIUM CHLORIDE FLUSH 0.9% 10 ML SYRINGE IVP PRN (00:39)
[2018-08-20] MEDS: HALOPERIDOL 5 MG/ML VIAL IM PRN (00:39)
[2018-08-20 05:57] LABS: BASOPHILS % (AUTO) 0.4 %; HGB - HEMOGLOBIN 10.4 g/dL (12.0-16.0); LYMPHOCYTES % (AUTO) 22.8 %; MEAN CORPUSCULAR HEMOGLOBIN 29.2 pg (27.0-31.0); MEAN CORPUSCULAR HGB CONC 33.6 g/dL (32.0-36.0); MEAN PLATELET VOLUME 6.5 fL (7.9-10.8); MONOCYTES % (AUTO) 6.9 %; NEUTROPHILS % (AUTO) 67.9 %; PLT - PLATELET COUNT 319 10^3/uL (130-450); RED BLOOD COUNT 3.58 10^6/uL (4.20-5.40); RED CELL DISTRIBUTION WIDTH 14.6 % (12.0-15.0); WHITE BLOOD COUNT 6.2 x10^3/uL (4.8-10.8)
[2018-08-20 06:00] LABS: ABNORMAL LYMPHS % (MANUAL) 0 %
[2018-08-20 06:05] LABS: ALBUMIN 2.7 g/dL (3.2-5.5); ALBUMIN/GLOBULIN RATIO 0.8 (1.0-2.2); BILIRUBIN,TOTAL 0.4 mg/dL (0.2-1.0); CALCIUM 8.7 mg/dL (8.5-10.3); CREATININE 1.1 mg/dL (0.4-1.0); PHOSPHORUS 4.1 mg/dL (2.5-4.6)
[2018-08-20 06:19] LABS: BAND NEUTROPHILS % (MANUAL) 1 %; DIFFERENTIAL COMMENT MANUAL DIFFERENTIAL; EOSINOPHILS # (MANUAL) 0.1 10^3/uL (0-0.7); LYMPHOCYTES # (MANUAL) 0.9 10^3/uL (1.5-3.5); LYMPHOCYTES % (MANUAL) 14 %; MONOCYTES # (MANUAL) 0.3 10^3/uL (0.0-1.0); NEUTROPHILS # (MANUAL) 4.9 10^3/uL (1.5-6.6); NEUTROPHILS % (MANUAL) 78 %; PLATELET ESTIMATE, MANUAL NORMAL (130-450,000) (NORMAL); RBC MORPHOLOGY (MULTIPLE) NORMAL APPEARANCE (NORMAL)
[2018-08-20] MEDS: LEVOTHYROXINE 75 MCG TABLET PO SCH (06:46)
[2018-08-20] MEDS: ENOXAPARIN 40 MG/0.4 ML SYRINGE SUBQ SCH ×2 (09:00→11:10)
--- NOTE | 2018-08-20 10:51 | Discharge Plan ---
Discharge Plan Disposition: Home, Self Care Condition: Good Prescriptions: Buspirone HCl 10 mg PO TID PRN #10 tablet PRN Reason: Anxiety cefUROXime axetil [Ceftin] 500 mg PO BID 14 Days #56 tablet Ferrous Gluconate 240 mg PO DAILY #30 tablet Lisinopril 10 mg PO DAILY #30 tablet Saccharomyces Boulardii [Florastor] 250 mg PO BID #30 capsule Diet: Regular Activity Restrictions: Activity as Tolerated Additional Instructions or Follow Up instructions: You were admitted for a suspected UTI, so were given IV antibiotics, which had a very unfortunate effect of psychosis. The most likely culprit is the Levofloxacin and should be avoided in the future. The blood cultures show e. coli in 2 of 2 samples and explains the reason that you were so severely sick. The most likely cause of this blood stream infection or bacteremia is from your bladder as e. coli is the most common pathogen that infects bladders. You had an echocardiogram (a heart ultrasound) to check for "vegetation" or collections of bacteria clusters that can sometimes happen with a blood stream infection and this was negative. The treatment for this infection is an extended course of antibiotics to be taken for the next 14 days, and ideally recheck blood cultures at the end of the course. You were found to have a condition called anemia, low red blood cell counts. There are several reasons this may happen. Iron studies showed that you will need iron replacement for the next month or so. I have sent iron to the pharmacy. Your blood pressure was elevated for the past several days, so I have sent over a higher dose of lisinopril to your pharmacy. Since you were experiencing psychosis, your Buspar and Zoloft was stopped. You can resume the Zoloft at 1/2 the dose for the next few days, then your normal dose. The buspar, can also be taken only as needed for times where you feel anxious. I recommend not resuming both of these suddenly when you arrive home since you have not had them in several days. Our pharmacy department is required to review your medications, and several medications were mixed in bottles that they did not belong. We recommend assistance at home with medication administration. Please see your PCP within one week. No Smoking: If you smoke, Please STOP! Call for help. Follow-up with: Tank Olivera MD [Primary Care Provider] -
[2018-08-20] MEDS: SACCHAROMYCES BOULARDII 250 MG CAPSULE PO SCH ×2 (11:09→16:56)
[2018-08-20] MEDS: LISINOPRIL 5 MG TABLET PO SCH (11:09)
[2018-08-20] MEDS: cefUROXime axetil 250 MG TABLET PO SCH ×2 (11:09→21:48)
[2018-08-20] MEDS: lamoTRIgine 100 MG TABLET PO SCH (11:09)
[2018-08-20] MEDS: POLYETHYLENE GLYCOL 3350 17 GM PACKET PO SCH (11:10)
[2018-08-20] MEDS: SENNA 8.6 MG TABLET PO SCH (11:10)
[2018-08-20] MEDS: FERROUS SULFATE 325 MG TABLET PO SCH (11:10)
[2018-08-20] MEDS: ONDANSETRON ODT 4 MG TABLET TL PRN (14:59)
--- NOTE | 2018-08-20 14:59 | PROVIDER PROGRESS NOTE ---
Subjective - Prog Note Date Prog Note Date: 08/20/18 Prog Note Time: 14:59 - Subjective Pt reports feeling: Improved Subjective: Anna is pleasant on exam and at times acts in a sarcastic manner when asked about her situation. She denies any new symptoms such as chest pain, nausea, vomiting, a rash, or shortness of breath. Current Medications - Current Medications Current Medications: Active Medications: Acetaminophen (Tylenol) 650 mg PO Q4HR PRN Buspirone HCl (Buspar) 5 mg PO BID [facility] Cefuroxime Axetil (Ceftin) 500 mg PO BID [facility] Enoxaparin Sodium (Lovenox) 40 mg SUBQ DAILY [facility] Ferrous Sulfate (Feosol) 325 mg PO DAILYWM [facility] Haloperidol (Haldol Inj) 1 mg IM Q2H PRN Hydralazine HCl (Apresoline Inj) 10 mg IVP Q4H PRN Lamotrigine (Lamictal) 100 mg PO DAILY [facility] Levothyroxine Sodium (Synthroid) 75 mcg PO QDAC [facility] Lisinopril (Zestril) 10 mg PO DAILY [facility] Ondansetron HCl (Zofran Odt) 4 mg TL Q4HR PRN Polyethylene Glycol (Miralax) 17 gm PO DAILY [facility] Saccharomyces Boulardii (Florastor) 500 mg PO BIDWM [facility] Senna (Senokot) 8.6 - 17.2 mg PO DAILY [facility] Sertraline HCl (Zoloft) 100 mg PO DAILY [facility] HOME meds: Levothyroxine [Synthroid] 75 mcg PO DAILY 04/03/14 Acetaminophen [Tylenol Extra Strength] 500 - 1,000 mg PO TID PRN 08/15/18 Calcium/Magnesium/Vitamin D3 [Pardeep-Mag Complex 300-150 mg Tab] 2 each PO BID 08/15/18 Multivitamin [Theragran] 1 each PO DAILY 08/15/18 [place]-3 Fatty Acids/Fish Oil [[place]-3 Fish Oil 1,000 mg Sfgl] 1 each PO DAILY 08/15/18 Sertraline HCl [Zoloft] 100 mg PO DAILY 08/15/18 hydroCHLOROthiazide [Hydrochlorothiazide] 25 mg PO DAILY 08/15/18 lamoTRIgine [LaMICtal] 100 mg PO DAILY 08/15/18 Objective - Vital Signs/Intake & Output Reviewed Vital Signs: Yes Vital Signs: Vital Signs x48h Temp Pulse Resp BP Pulse Ox 08/20/18 08:40 36.4 C L 83 16 142/71 H 97 Intake & Output: Intake & Output 08/17/18 08/18/18 08/19/18 08/20/18 23:59 23:59 23:59 23:59 Intake Total 6456 630 8913 543 Output Total 800 1650 750 Balance 1710 160 850 -207 - Objective General Appearance: positive: Alert, Moderate distress, Anxious Eyes Bilateral: positive: Normal inspection, PERRL ENT: positive: ENT inspection nml, Pharynx nml, No signs of dehydration Neck: positive: Thyroid nml, No JVD, Trachea midline Respiratory: positive: Chest non-tender, No respiratory distress, Breath sounds nml Cardiovascular: positive: Regular rate & rhythm, No murmur, No gallop Peripheral Pulses: 1+ Radial (R) Abdomen: positive: Non-tender, Nml bowel sounds Back: positive: Nml inspection Skin: positive: Color nml, No rash, Warm, Dry Extremities: positive: Non-tender, Full ROM, Nml appearance Neurologic/Psychiatric: positive: CN's nml (2-12), Motor nml, Sensation nml, Mood/affect nml, Disoriented to place, Disoriented to time, Depressed moo d/affect, Other (out of context statements) Reflexes: Bicep (R): 3+, Bicep (L): 3+ - Lab Results Fish Bones: 08/20/18 05:45 08/20/18 05:45 Other Labs: Lab Results x24hrs 08/20/18 08/20/18 08/20/18 Range/Units 05:45 05:45 05:45 WBC (4.8-10.8) x10^3/uL RBC (4.20-5.40) 10^6/uL Hgb (12.0-16.0) g/dL Hct (37.0-47.0) % MCV (81.0-99.0) fL MCH (27.0-31.0) pg MCHC (32.0-36.0) g/dL RDW (12.0-15.0) % Plt Count (130-450) 10^3/uL MPV (7.9-10.8) fL Neut # (Auto) Lymph # (Auto) [place] # (Auto) Eos # (Auto) Baso # (Auto) Absolute Nucleated RBC Total Counted Band Neuts % (Manual) (0 - 10) % Abnorm Lymph % (Manual) % Nucleated RBC % Neutrophils # (Manual) (1.5-6.6) 10^3/uL Lymphocytes # (Manual) (1.5-3.5) 10^3/uL Monocytes # (Manual) (0.0-1.0) 10^3/uL Eosinophils # (Manual) (0-0.7) 10^3/uL Basophils # (Manual) (0-0.1) 10^3/uL Differential Comment Platelet Estimate (NORMAL) RBC Morph Micro Appear (NORMAL) Sodium 140 (135-145) mmol/L Potassium 3.4 L (3.5-5.0) mmol/L Chloride 103 (101-111) mmol/L Carbon Dioxide 28 (21-32) mmol/L Anion Gap 9.0 (6-13) BUN 13 (6-20) mg/dL Creatinine 1.1 H (0.4-1.0) mg/dL Estimated GFR (MDRD) 50 L (>89) Glucose 110 H (70-100) mg/dL Lactic Acid 0.6 (0.5-2.2) mmol/L Calcium 8.7 (8.5-10.3) mg/dL Phosphorus 4.1 (2.5-4.6) mg/dL Magnesium 2.0 (1.7-2.8) mg/dL Total Bilirubin 0.4 (0.2-1.0) mg/dL AST 44 H (10-42) IU/L ALT 38 (10-60) IU/L Alkaline Phosphatase 60 (42-121) IU/L Total Creatine Kinase 108 (22-269) IU/L Total Protein 6.0 L (6.7-8.2) g/dL Albumin 2.7 L (3.2-5.5) g/dL Globulin 3.3 (2.1-4.2) g/dL Albumin/Globulin Ratio 0.8 L (1.0-2.2) 08/20/18 Range/Units 05:45 WBC 6.2 (4.8-10.8) x10^3/uL RBC 3.58 L (4.20-5.40) 10^6/uL Hgb 10.4 L (12.0-16.0) g/dL Hct 31.1 L (37.0-47.0) % MCV 87.0 (81.0-99.0) fL MCH 29.2 (27.0-31.0) pg MCHC 33.6 (32.0-36.0) g/dL RDW 14.6 (12.0-15.0) % Plt Count 319 (130-450) 10^3/uL MPV 6.5 L (7.9-10.8) fL Neut # (Auto) Not Reportable Lymph # (Auto) Not Reportable [place] # (Auto) Not Reportable Eos # (Auto) Not Reportable Baso # (Auto) Not Reportable Absolute Nucleated RBC Not Reportable Total Counted 100 Band Neuts % (Manual) 1 (0 - 10) % Abnorm Lymph % (Manual) 0 % Nucleated RBC % Not Reportable Neutrophils # (Manual) 4.9 (1.5-6.6) 10^3/uL Lymphocytes # (Manual) 0.9 L (1.5-3.5) 10^3/uL Monocytes # (Manual) 0.3 (0.0-1.0) 10^3/uL Eosinophils # (Manual) 0.1 (0-0.7) 10^3/uL Basophils # (Manual) 0.0 (0-0.1) 10^3/uL Differential Comment MANUAL DIFFERENTIAL Platelet Estimate NORMAL (130-450,000) (NORMAL) RBC Morph Micro Appear NORMAL APPEARANCE (NORMAL) Sodium (135-145) mmol/L Potassium (3.5-5.0) mmol/L Chloride (101-111) mmol/L Carbon Dioxide (21-32) mmol/L Anion Gap (6-13) BUN (6-20) mg/dL Creatinine (0.4-1.0) mg/dL Estimated GFR (MDRD) (>89) Glucose (70-100) mg/dL Lactic Acid (0.5-2.2) mmol/L Calcium (8.5-10.3) mg/dL Phosphorus (2.5-4.6) mg/dL Magnesium (1.7-2.8) mg/dL Total Bilirubin (0.2-1.0) mg/dL AST (10-42) IU/L ALT (10-60) IU/L Alkaline Phosphatase (42-121) IU/L Total Creatine Kinase (22-269) IU/L Total Protein (6.7-8.2) g/dL Albumin (3.2-5.5) g/dL Globulin (2.1-4.2) g/dL Albumin/Globulin Ratio (1.0-2.2) ABX Reporting Has patient been on IV antibiotics over the past 48 hours?: No Sepsis Event Note (H) - Evaluation Current Stage of Sepsis: Ruled out Possible source of Sepsis: positive: Genitourinary Assessment/Plan - Problem List (1) Bipolar disorder, current episode manic severe with psychotic features Impression: - History of bipolar upon chart review - Resumed zoloft and buspirone today per DCR recommendation who was working on placement to a psych facility - Labs including BMP, troponin, ammonia, folate, B12, blood cultures x2, and CK were all normal - a large bag of home meds were found in the patient's room and upon pharmacy review, there were several different types of pills within one container. Benzodiazepines were the predominant pill found in several bottles - Status post IV levofloxacin and IV flagyl which may have been a triggering culprit - Increased meal consumption today, but still with inability to function properly - Head CT is normal Plan: Continue to monitor for improvement (2) Bacteremia due to Escherichia coli Impression: - BC x2 dated 08/14- both + for e. coli - BC x2 dated 08/16- both NGTD - New BCs x2 08/18/18- both NGTD - Most likely source is urine - Afebrile - Now with new AMS, hallucinations, delirium, psychosis - Faint murmur on exam, concerning for possible valve vegetation, echo is negative for this - Status post IV levofloxacin and IV flagyl stopped for change in AMS - PO Ceftin without ill effects - No rash noted upon exam Plan: Continue antibiotics, and anticipate home tomorrow if mental status is improved (3) Acute infective psychosis Impression: - Overall similar to previous 2 days, with inappropriate statements, unable to follow simple tasks or do common things per UpToDate: this syndrome is described as: -Symptoms of psychosis seen in the disorder include one or more of the following: -Hallucinations The perception of a sensory process in the absence of an external source. Hallucinations can be auditory, visual, somatic, olfactory, or gustatory. -Delusions A fixed, false belief. Delusions can be bizarre or non-bizarre. -Disorganized speech Disorganized speech patterns reflect disruption in the organization of persons thoughts. Commonly observed forms include tangentially and circumstantially -Disorganized behavior A patient with grossly disorganized behavior is often recognized by their inability to complete daily, normative tasks (eg, clothed, clean, belongings in order). In addition to the symptoms comprising diagnostic criteria for brief psychotic disorder assessment, the patient should be evaluated for other features suggestive of brief psychotic disorder: -Presence of marked stressors preceding symptom onset -Lack of negative symptoms -Confusion during the early course of illness - today the patient is found to have all of these characteristics - History of bipolar upon chart review - At times, no response to a sternal rub and later responds in a matter of fact manner with, "I am praying to the great I AM" - Other times will respond on the first attempt, for example for a blood draw, during nursing cares, med administration, or meals - Labs including BMP, troponin, ammonia, folate, B12, blood cultures x2, and CK were all normal, MUDDS normal - 2 doses of Romazicon were given with no effect - a large back of home meds were found in the patient's room and upon pharmacy review, there were several different types of pills within one container - Status post IV levofloxacin and IV flagyl - Increased meals consumed today - Episode began after getting Temazepam 7.5 mg, but most likely culprit is levofloxacin - Head CT is normal Plan: Consider a spinal tap if fevers or WBC count appears (4) UTI (urinary tract infection) Impression: - Imaging confirmed kidney abnormalities - Abdominal pain upon admission, now resolved - Diarrhea improved- nearly resolved - BCs x2 show e. coli, consistent with pyelonephritis - 2nd set of BCs negative, new set drawn today 08/18/2018 - Status post urinary retention from her recent change in mental status, now urinating - Denies dysuria upon exam Plan: Continue PO ceftin Qualifiers: Urinary tract infection type: acute pyelonephritis Qualified Code(s): N10 - Acute pyelonephritis (5) HTN (hypertension) Impression: - HCTZ at home, initially on hold due to acute illness -Lisinopril continues, now increased to 10 mg - Mild hypertension noted today with a B/P of 148/90 - Added IV hydralazine if needed Plan: Continue to monitor, give Hydralazine for SBP more than 150 Qualifiers: Hypertension type: essential hypertension Qualified Code(s): I10 - Essential (primary) hypertension (6) Anxiety and depression Impression: - Home meds are Buspar and Zoloft - Both stopped due to worsening mental status - Await cultures, provide frequent nursing cares during this time of presumed bibi Plan: Monitor for worsening depression or anxiety (7) Colitis Impression: - CT results more consistent with pyelonephritis which goes with e coli bacteremia, abdominal pain, septic shock and imaging - C-diff negative - On exam, patient cannot follow commands and is found to have a change in her mental status - Status post IV flagyl Plan: Continue PO Ceftin
[2018-08-20] MEDS: SERTRALINE 50 MG TABLET PO SCH (18:28)
[2018-08-20] MEDS: busPIRone 5 MG TABLET PO SCH (21:48)
[2018-08-21] MEDS: SERTRALINE 50 MG TABLET PO SCH (10:54)
[2018-08-21] MEDS: ENOXAPARIN 40 MG/0.4 ML SYRINGE SUBQ SCH (10:54)
[2018-08-21] MEDS: FERROUS SULFATE 325 MG TABLET PO SCH (10:54)
[2018-08-21] MEDS: LEVOTHYROXINE 75 MCG TABLET PO SCH (10:54)
[2018-08-21] MEDS: lamoTRIgine 100 MG TABLET PO SCH (10:55)
[2018-08-21] MEDS: SACCHAROMYCES BOULARDII 250 MG CAPSULE PO SCH ×2 (10:55→17:10)
[2018-08-21] MEDS: LISINOPRIL 5 MG TABLET PO SCH (10:55)
[2018-08-21] MEDS: busPIRone 5 MG TABLET PO SCH ×2 (10:56→19:02)
[2018-08-21] MEDS: cefUROXime axetil 250 MG TABLET PO SCH ×2 (10:56→19:02)
[2018-08-21] MEDS: SENNA 8.6 MG TABLET PO SCH (10:56)
[2018-08-21] MEDS: POLYETHYLENE GLYCOL 3350 17 GM PACKET PO SCH (10:57)
[2018-08-21] MEDS: SODIUM CHLORIDE FLUSH 0.9% 10 ML SYRINGE IVP SCH ×2 (10:57→16:38)
--- NOTE | 2018-08-21 17:13 | PROVIDER PROGRESS NOTE ---
Subjective - Prog Note Date Prog Note Date: 08/21/18 Prog Note Time: 17:09 - Subjective Pt reports feeling: No change Subjective: Anna has no complaints, but cannot tell me where or why she is here. She denies chest pain, nausea, vomiting, a rash, bleeding or shortness of breath. She states that her appetite is not good. Current Medications - Current Medications Current Medications: Active Medications: Acetaminophen (Tylenol) 650 mg PO TID PRN Buspirone HCl (Buspar) 5 mg PO BID [facility] Cefuroxime Axetil (Ceftin) 500 mg PO BID [facility] Enoxaparin Sodium (Lovenox) 40 mg SUBQ DAILY [facility] Ferrous Sulfate (Feosol) 325 mg PO DAILYWM [facility] Haloperidol (Haldol Inj) 1 mg IM Q2H PRN Hydrochlorothiazide (Hydrodiuril) 25 mg PO DAILY [facility] Lamotrigine (Lamictal) 100 mg PO DAILY [facility] Levothyroxine Sodium (Synthroid) 75 mcg PO QDAC [facility] Lisinopril (Zestril) 20 mg PO DAILY [facility] Rhrag-3-Oape Ethyl Esters (Lovaza) 1 gm PO DAILY [facility] Ondansetron HCl (Zofran Odt) 4 mg TL Q4HR PRN Polyethylene Glycol (Miralax) 17 gm PO DAILY [facility] Saccharomyces Boulardii (Florastor) 500 mg PO BIDWM [facility] Senna (Senokot) 8.6 - 17.2 mg PO DAILY [facility] Sertraline HCl (Zoloft) 100 mg PO DAILY [facility] HOME meds: Levothyroxine [Synthroid] 75 mcg PO DAILY 04/03/14 Acetaminophen [Tylenol Extra Strength] 500 - 1,000 mg PO TID PRN 08/15/18 Calcium/Magnesium/Vitamin D3 [Pardeep-Mag Complex 300-150 mg Tab] 2 each PO BID 08/15/18 Multivitamin [Theragran] 1 each PO DAILY 08/15/18 [place]-3 Fatty Acids/Fish Oil [[place]-3 Fish Oil 1,000 mg Sfgl] 1 each PO DAILY 08/15/18 Sertraline HCl [Zoloft] 100 mg PO DAILY 08/15/18 hydroCHLOROthiazide [Hydrochlorothiazide] 25 mg PO DAILY 08/15/18 lamoTRIgine [LaMICtal] 100 mg PO DAILY 08/15/18 Objective - Vital Signs/Intake & Output Reviewed Vital Signs: Yes Vital Signs: Vital Signs x48h Temp Pulse Resp BP Pulse Ox 08/21/18 16:11 36.8 C 85 15 171/72 H 97 08/21/18 09:21 36.6 C 83 16 160/89 H 99 Intake & Output: Intake & Output 08/18/18 08/19/18 08/20/18 08/21/18 23:59 23:59 23:59 23:59 Intake Total 960 2500 843 440 Output Total 800 6562 064 9497 Balance 160 850 93 -811 - Objective General Appearance: positive: No acute distress, Alert, Mild distress Eyes Bilateral: positive: Normal inspection, PERRL Eyes: OU Conjunctivae pale ENT: positive: ENT inspection nml, Pharynx nml, No signs of dehydration Neck: positive: Nml inspection, Thyroid nml, No JVD, Trachea midline Respiratory: positive: Chest non-tender, No respiratory distress, Breath sounds nml Cardiovascular: positive: Regular rate & rhythm, No gallop, Systolic murmur Peripheral Pulses: 1+ Radial (R), 1+ Radial (L) Abdomen: positive: Nml bowel sounds, Tenderness, Other (rounded, soft) Back: positive: Nml inspection Skin: positive: Color nml, No rash, Warm, Dry Extremities: positive: Non-tender, Full ROM, Nml appearance, No pedal edema Neurologic/Psychiatric: positive: CN's nml (2-12), Motor nml, Weakness, Sensory loss (complaints of shocks that she feels through her body), Depressed mood/affect Reflexes: Bicep (R): 3+, Bicep (L): 3+ - Lab Results Fish Bones: 08/21/18 19:00 08/21/18 19:00 ABX Reporting Has patient been on IV antibiotics over the past 48 hours?: No Sepsis Event Note (H) - Evaluation Current Stage of Sepsis: Ruled out Possible source of Sepsis: positive: Genitourinary Assessment/Plan - Problem List (1) Bipolar disorder, current episode manic severe with psychotic features Impression: - History of bipolar upon chart review - Resumed zoloft and buspirone per DCR recommendation who was working on placement to a psych facility, unless she becomes back to her baseline on her own. - Labs including BMP, troponin, ammonia, folate, B12, blood cultures x2, and CK were all normal - a large bag of home meds were found in the patient's room and upon pharmacy review, there were several different types of pills within one container. Be nzodiazepines were the predominant pill found in several bottles - Status post IV levofloxacin and IV flagyl which may have been a triggering culprit - Meals have not been consistent - Head CT is normal Plan: Continue to monitor for improvement (2) Bacteremia due to Escherichia coli Impression: - BC x2 dated 08/14- both + for e. coli - BC x2 dated 08/16- both NGTD - New BCs x2 08/18/18- both NGTD - Most likely source is urine - Afebrile - Continued with AMS, hallucinations, delirium, psychosis - Cannot comprehend common phrases such as, "do you want to get in the chair?", and quickly changes the topic to, "my bed is cold" - Faint murmur on exam, concerning for possible valve vegetation, echo showed no vegetation - Status post IV levofloxacin and IV flagyl stopped for changes in AMS - PO Ceftin without ill effects - No rash noted upon exam Plan: Continue antibiotics, and anticipate home when mental status is improved (3) Acute infective psychosis Impression: - Overall the same, with inappropriate statements, unable to follow simple tasks or do common things - As per UpToDate: this syndrome is described as: -Symptoms of psychosis seen in the disorder include one or more of the following: -Hallucinations The perception of a sensory process in the absence of an external source. Hallucinations can be auditory, visual, somatic, olfactory, or gustatory. -Delusions A fixed, false belief. Delusions can be bizarre or non-bizarre -Disorganized speech Disorganized speech patterns reflect disruption in the organization of persons thoughts. Commonly observed forms include tangentially and circumstantially -Disorganized behavior A patient with grossly disorganized behavior is often recognized by their inability to complete daily, normative tasks (eg, clothed, clean, belongings in order) In addition to the symptoms comprising diagnostic criteria for brief psychotic disorder assessment, the patient should be evaluated for other features suggestive of brief psychotic disorder: -Presence of marked stressors preceding symptom onset -Lack of negative symptoms -Confusion during the early course of illness - today the patient is found to have all of these characteristics - History of bipolar, depression, short term memory loss, and PTSD upon chart review - Labs including BMP, troponin, ammonia, folate, B12, blood cultures x2, and CK were all normal, MUDDS normal - 2 doses of Romazicon were given with no effect - a large back of home meds were found in the patient's room and upon pharmacy review, there were several different types of pills within one container - Status post IV levofloxacin and IV flagyl - Meals have been inconsistent in amounts - Episode began after getting Temazepam 7.5 mg, but most likely culprit is levofloxacin - Head CT is normal Plan: Consider a spinal tap if fevers or WBC count appears (4) UTI (urinary tract infection) Impression: - Imaging confirmed kidney abnormalities - Abdominal pain upon admission, now resolved - Diarrhea improved - BCs x2 show e. coli, consistent with pyelonephritis - 2nd set of BCs negative, new set drawn 08/18/2018- NGTD - Status post urinary retention from her recent change in mental status, now urinating - Denies dysuria upon exam Plan: Continue PO ceftin Qualifiers: Urinary tract infection type: acute pyelonephritis Qualified Code(s): N10 - Acute pyelonephritis (5) HTN (hypertension) Impression: - HCTZ at home, now resumed due to continued HTN -Lisinopril continues, increased to 20 mg - Mild hypertension noted today with a B/P of 172/90 Plan: Continue to monitor, make adjustments as needed Qualifiers: Hypertension type: essential hypertension Qualified Code(s): I10 - Essential (primary) hypertension (6) Anxiety and depression Impression: - Home meds are Buspar and Zoloft - Both stopped due to worsening mental status, now resumed as per DCR recommendation - Provide frequent nursing cares during this time of presumed bibi Plan: Monitor for worsening depression or anxiety (7) Colitis Impression: - CT results more consistent with pyelonephritis which goes with e coli bacteremia, abdominal pain, septic shock and imaging - C-diff negative - On exam, patient cannot follow commands and is found to have a change in her mental status - Status post IV flagyl - After reviewing outside records, the patient had frequent office visits for abdominal pain with the last visit being 08/12/2018 - On the 08/12 visit, the patient stated that this pain had started 2 months ago and said the pain started to the right of her umbilicus and spread downward to bilateral hips - The patient stated, "Feels like I'm going to give if I walk around too much" - Her usual time of this pain was close to bedtime and it felt like shocks, and aching which would wake her up at night Plan: Continue PO Ceftin
[2018-08-21] MEDS ORDERED: ACETAMINOPHEN 500 MG TABLET PO PRN (17:18)
[2018-08-21] MEDS ORDERED: LISINOPRIL 5 MG TABLET PO ONE (18:39)
[2018-08-21] MEDS: hydroCHLOROthiazide 25 MG TABLET PO SCH (19:02)
[2018-08-21 19:18] LABS: ALBUMIN 3.8 g/dL (3.2-5.5); BILIRUBIN,TOTAL 0.4 mg/dL (0.2-1.0); CALCIUM 9.4 mg/dL (8.5-10.3); CREATININE 1.2 mg/dL (0.4-1.0); MAGNESIUM 2.2 mg/dL (1.7-2.8); PHOSPHORUS 3.9 mg/dL (2.5-4.6); TOTAL PROTEIN 7.6 g/dL (6.7-8.2)
[2018-08-21 19:40] LABS: BASOPHILS % (AUTO) 0.3 %; EOSINOPHILS # (AUTO) 0.2 10^3/uL (0.0-0.7); EOSINOPHILS % (AUTO) 1.5 %; HGB - HEMOGLOBIN 11.2 g/dL (12.0-16.0); LYMPHOCYTES % (AUTO) 19.9 %; MEAN CORPUSCULAR HEMOGLOBIN 29.2 pg (27.0-31.0); MEAN CORPUSCULAR HGB CONC 33.7 g/dL (32.0-36.0); MEAN CORPUSCULAR VOLUME 86.5 fL (81.0-99.0); MEAN PLATELET VOLUME 6.7 fL (7.9-10.8); MONOCYTES # (AUTO) 0.6 10^3/uL (0.0-1.0); MONOCYTES % (AUTO) 6.1 %; NEUTROPHILS # (AUTO) 7.4 10^3/uL (1.5-6.6); NEUTROPHILS % (AUTO) 72.2 %; PLT - PLATELET COUNT 484 10^3/uL (130-450); RED BLOOD COUNT 3.83 10^6/uL (4.20-5.40); RED CELL DISTRIBUTION WIDTH 14.7 % (12.0-15.0); WHITE BLOOD COUNT 10.3 x10^3/uL (4.8-10.8)
[2018-08-22] MEDS: LEVOTHYROXINE 75 MCG TABLET PO SCH (06:53)
[2018-08-22] MEDS ORDERED: LISINOPRIL 5 MG TABLET PO SCH (09:00)
[2018-08-22] MEDS ORDERED: hydroCHLOROthiazide 25 MG TABLET PO SCH (09:00)
[2018-08-22] MEDS: FERROUS SULFATE 325 MG TABLET PO SCH (09:42)
[2018-08-22] MEDS: SACCHAROMYCES BOULARDII 250 MG CAPSULE PO SCH ×2 (09:42→16:52)
[2018-08-22] MEDS: hydroCHLOROthiazide 25 MG TABLET PO SCH (09:43)
[2018-08-22] MEDS: OMEGA-3 ACID ETHYL ESTERS 1 GM CAPSULE PO SCH (09:43)
[2018-08-22] MEDS: cefUROXime axetil 250 MG TABLET PO SCH ×2 (09:43→19:48)
[2018-08-22] MEDS: ENOXAPARIN 40 MG/0.4 ML SYRINGE SUBQ SCH (09:43)
[2018-08-22] MEDS: busPIRone 5 MG TABLET PO SCH ×2 (09:43→19:49)
[2018-08-22] MEDS: lamoTRIgine 100 MG TABLET PO SCH (09:44)
[2018-08-22] MEDS: POLYETHYLENE GLYCOL 3350 17 GM PACKET PO SCH (09:44)
[2018-08-22] MEDS: SENNA 8.6 MG TABLET PO SCH (11:38)
[2018-08-22] MEDS: SERTRALINE 50 MG TABLET PO SCH (11:38)
--- NOTE | 2018-08-22 21:12 | PROVIDER PROGRESS NOTE ---
Subjective - Prog Note Date Prog Note Date: 08/22/18 Prog Note Time: 10:00 - Subjective Pt reports feeling: No change Subjective: Anna appears withdrawn today. She is very brief in her responses which is noticeable from previous. She continues to be un-orientated when asked. She has no idea how she got to the hospital or what she is sick with. Current Medications - Current Medications Current Medications: Active Medications: Acetaminophen (Tylenol) 650 mg PO TID PRN Buspirone HCl (Buspar) 10 mg PO BID [facility] Cefuroxime Axetil (Ceftin) 500 mg PO BID [facility] Enoxaparin Sodium (Lovenox) 40 mg SUBQ DAILY [facility] Ferrous Sulfate (Feosol) 325 mg PO DAILYWM [facility] Haloperidol (Haldol Inj) 1 mg IM Q2H PRN Hydrochlorothiazide (Hydrodiuril) 25 mg PO DAILY [facility] Lamotrigine (Lamictal) 100 mg PO DAILY [facility] Levothyroxine Sodium (Synthroid) 75 mcg PO QDAC [facility] Lisinopril (Zestril) 40 mg PO DAILY [facility] Jktix-1-Vmub Ethyl Esters (Lovaza) 1 gm PO DAILY [facility] Ondansetron HCl (Zofran Odt) 4 mg TL Q4HR PRN Polyethylene Glycol (Miralax) 17 gm PO DAILY [facility] Saccharomyces Boulardii (Florastor) 500 mg PO BIDWM [facility] Senna (Senokot) 8.6 - 17.2 mg PO DAILY [facility] Sertraline HCl (Zoloft) 100 mg PO DAILY [facility] HOME meds: Levothyroxine [Synthroid] 75 mcg PO DAILY 04/03/14 Acetaminophen [Tylenol Extra Strength] 500 - 1,000 mg PO TID PRN 08/15/18 Calcium/Magnesium/Vitamin D3 [Pardeep-Mag Complex 300-150 mg Tab] 2 each PO BID 08/15/18 Multivitamin [Theragran] 1 each PO DAILY 08/15/18 [place]-3 Fatty Acids/Fish Oil [[place]-3 Fish Oil 1,000 mg Sfgl] 1 each PO DAILY 08/15/18 Sertraline HCl [Zoloft] 100 mg PO DAILY 08/15/18 hydroCHLOROthiazide [Hydrochlorothiazide] 25 mg PO DAILY 08/15/18 lamoTRIgine [LaMICtal] 100 mg PO DAILY 08/15/18 Objective - Vital Signs/Intake & Output Reviewed Vital Signs: Yes Vital Signs: Vital Signs x48h Temp Pulse Resp BP Pulse Ox 08/22/18 18:00 37.0 C 77 18 170/74 H 97 Intake & Output: Intake & Output 08/19/18 08/20/18 08/21/18 08/22/18 23:59 23:59 23:59 23:59 Intake Total 2500 843 440 240 Output Total 3063 127 3669 Balance 850 93 -1361 240 - Objective General Appearance: positive: Alert, Moderate distress, Anxious Eyes Bilateral: positive: PERRL Eyes: OU Conjunctivae pale ENT: positive: ENT inspection nml, Pharynx nml, No signs of dehydration Neck: positive: Thyroid nml, No JVD, Trachea midline Respiratory: positive: Chest non-tender, No respiratory distress, Breath sounds nml Cardiovascular: positive: Regular rate & rhythm, No gallop, Systolic murmur Peripheral Pulses: 1+ Radial (R), 1+ Radial (L) Abdomen: positive: Non-tender, Nml bowel sounds, Guarding Back: positive: Nml inspection Skin: positive: Color nml, No rash, Warm, Dry Extremities: positive: Non-tender, Full ROM, Nml appearance, No pedal edema Neurologic/Psychiatric: positive: CN's nml (2-12), Motor nml, Sensation nml, Weakness, Slurred/abnml speech, Depressed mood/affect, Other (delusions, hallucinations-auditory) Reflexes: Bicep (R): 3+, Bicep (L): 3+ - Lab Results Fish Bones: 08/21/18 19:00 08/21/18 19:00 Other Labs: Lab Results x24hrs 08/22/18 08/18/18 Range/Units 05:40 11:36 Carcinoembryonic Ag 0.3 ng/mL Lamotrigine 2.5 L (4.0-18.0) mcg/mL ABX Reporting Has patient been on IV antibiotics over the past 48 hours?: No Sepsis Event Note (H) - Evaluation Current Stage of Sepsis: Ruled out Possible source of Sepsis: positive: Genitourinary Assessment/Plan - Problem List (1) Bipolar disorder, current episode manic severe with psychotic features Impression: - History of bipolar upon chart review - Resumed zoloft and buspirone per DCR recommendation who was working on placement to a psych facility, unless she becomes back to her baseline on her own. - Labs including BMP, troponin, ammonia, folate, B12, blood cultures x2, and CK were all normal - a large bag of home meds were found in the patient's room and upon pharmacy review, there were several different types of pills within one container. Benzodiazepines were the predominant pill found in several bottles - Status post IV levofloxacin and IV flagyl which may have been a triggering culprit - Meals have not been consistent - Head CT is normal showing no acute bleeding or infarcts Plan: Continue to monitor for improvement and recommend a home medication program upon discharge (2) Bacteremia due to Escherichia coli Impression: - BC x2 dated 08/14- both + for e. coli - BC x2 dated 08/16- both NGTD - New BCs x2 08/18/18- both NGTD - Most likely source is urine - Afebrile - Continued with AMS, hallucinations, delirium, psychosis - Cannot comprehend common phrases such as, "do you want to get in the chair?", and quickly changes the topic to, "my bed is cold" - Faint murmur on exam, concerning for possible valve vegetation, echo showed no vegetation - Status post IV levofloxacin and IV flagyl stopped for changes in AMS - PO Ceftin without ill effects to continue for a minimum of 14 days - No rash noted upon exam Plan: Continue antibiotics, and anticipate home when mental status is improved (3) Acute infective psychosis Impression: - Overall the same, with inappropriate statements, unable to follow simple tasks or do common things - Now with delusions and paranoia - Tells very convincing stories, but when double checked with her loved ones, these stories are incorrect - As per UpToDate: this syndrome is described as: -Symptoms of psychosis seen in the disorder include one or more of the following: -Hallucinations The perception of a sensory process in the absence of an external source. Hallucinations can be auditory, visual, somatic, olfactory, or gustatory. -Delusions A fixed, false belief. Delusions can be bizarre or non-bizarre -Disorganized speech Disorganized speech patterns reflect disruption in the organization of persons thoughts. Commonly observed forms include tangentially and circumstantially -Disorganized behavior A patient with grossly disorganized behavior is often recognized by their inability to complete daily, normative tasks (eg, clothed, clean, belongings in order) In addition to the symptoms comprising diagnostic criteria for brief psychotic disorder assessment, the patient should be evaluated for other features suggestive of brief psychotic disorder: -Presence of marked stressors preceding symptom onset -Lack of negative symptoms -Confusion during the early course of illness - today the patient is found to have all of these characteristics - History of bipolar, depression, short term memory loss, and PTSD upon chart review - Labs including BMP, troponin, ammonia, folate, B12, blood cultures x2, and CK were all normal, MUDDS normal - 2 doses of Romazicon were given with no effect - a large back of home meds were found in the patient's room and upon pharmacy review, there were several different types of pills within one container - Status post IV levofloxacin and IV flagyl - Meals have been inconsistent in amounts - Episode began after getting Temazepam 7.5 mg, but most likely culprit is levofloxacin - Head CT is normal Plan: Consider a spinal tap if fevers or WBC count appear or if other indications appear (4) UTI (urinary tract infection) Impression: - Imaging confirmed kidney abnormalities - Abdominal pain upon admission, now resolved - Diarrhea improved - BCs x2 show e. coli, consistent with pyelonephritis - 2nd set of BCs negative, new set drawn 08/18/2018- NGTD - Status post urinary retention from her recent change in mental status, now urinating - Denies dysuria upon exam - According to outside records, her UTIs may be recurrent Plan: Continue PO ceftin Qualifiers: Urinary tract infection type: acute pyelonephritis Qualified Code(s): N10 - Acute pyelonephritis (5) HTN (hypertension) Impression: - HCTZ at home, now resumed due to continued HTN -Lisinopril continues, increased to 20 mg - Mild hypertension noted today with a B/P of 172/90 Plan: Continue to monitor, make adjustments as needed Qualifiers: Hypertension type: essential hypertension Qualified Code(s): I10 - Essential (primary) hypertension (6) Anxiety and depression Impression: - Home meds are Buspar and Zoloft - Both stopped due to worsening mental status, now resumed as per DCR recommendation - Provide frequent nursing cares during this time of presumed bibi Plan: Monitor for worsening depression or anxiety (7) Colitis Impression: - CT results more consistent with pyelonephritis which goes with e coli bacteremia, abdominal pain, septic shock and imaging - C-diff negative - On exam, patient cannot follow commands and is found to have a change in her mental status - Status post IV flagyl - CEA on lab is normal, a colon cancer predictor - After reviewing outside records, the patient had frequent office visits for abdominal pain with the last visit being 08/12/2018 - On the 08/12 visit, the patient stated that this pain had started 2 months ago and said the pain started to the right of her umbilicus and spread downward to bilateral hips - The patient stated, "Feels like I'm going to give if I walk around too much" - Her usual time of this pain was close to bedtime and it felt like shocks, and aching which would wake her up at night Plan: Continue PO Ceftin
[2018-08-23] MEDS: LEVOTHYROXINE 75 MCG TABLET PO SCH (06:31)
[2018-08-23] MEDS: busPIRone 5 MG TABLET PO SCH ×2 (09:07→21:10)
[2018-08-23] MEDS: LISINOPRIL 20 MG TABLET PO SCH ×2 (09:09→10:45)
[2018-08-23] MEDS: FERROUS SULFATE 325 MG TABLET PO SCH (09:09)
[2018-08-23] MEDS: SERTRALINE 50 MG TABLET PO SCH (09:09)
[2018-08-23] MEDS: hydroCHLOROthiazide 25 MG TABLET PO SCH (09:09)
[2018-08-23] MEDS: lamoTRIgine 100 MG TABLET PO SCH (09:09)
[2018-08-23] MEDS: cefUROXime axetil 250 MG TABLET PO SCH ×2 (09:09→21:10)
[2018-08-23] MEDS: SACCHAROMYCES BOULARDII 250 MG CAPSULE PO SCH ×2 (09:09→17:29)
[2018-08-23] MEDS: ENOXAPARIN 40 MG/0.4 ML SYRINGE SUBQ SCH (09:10)
[2018-08-23] MEDS: POLYETHYLENE GLYCOL 3350 17 GM PACKET PO SCH (09:11)
[2018-08-23] MEDS: SENNA 8.6 MG TABLET PO SCH (09:11)
[2018-08-23] MEDS: ACETAMINOPHEN 325 MG TABLET PO PRN ×2 (11:02→22:55)
[2018-08-23] MEDS: OMEGA-3 ACID ETHYL ESTERS 1 GM CAPSULE PO SCH (11:03)
--- NOTE | 2018-08-23 12:21 | PROVIDER PROGRESS NOTE ---
Subjective - Prog Note Date Prog Note Date: 08/23/18 Prog Note Time: 12:23 - Subjective Pt reports feeling: Improved Subjective: Upon me enter the patient's room for her exam today, she asks, "what size clothes do you wear". She continues to display a poor sense of awareness which is worrisome for medical non-compliance since she will need consistent antibiotic therapies to finish this course and ensure a resolution of e coli bacteremia. Current Medications - Current Medications Current Medications: Active Medications: Acetaminophen (Tylenol) 650 mg PO Q4HR PRN Buspirone HCl (Buspar) 10 mg PO BID [facility] Cefuroxime Axetil (Ceftin) 500 mg PO BID [facility] Enoxaparin Sodium (Lovenox) 40 mg SUBQ DAILY [facility] Ferrous Sulfate (Feosol) 325 mg PO DAILYWM [facility] Haloperidol (Haldol Inj) 1 mg IM Q2H PRN Hydrochlorothiazide (Hydrodiuril) 25 mg PO DAILY [facility] Lamotrigine (Lamictal) 100 mg PO DAILY [facility] Levothyroxine Sodium (Synthroid) 75 mcg PO QDAC [facility] Lisinopril (Zestril) 40 mg PO DAILY [facility] Ggsaq-3-Ksen Ethyl Esters (Lovaza) 1 gm PO DAILY [facility] Ondansetron HCl (Zofran Odt) 4 mg TL Q4HR PRN Polyethylene Glycol (Miralax) 17 gm PO DAILY [facility] Saccharomyces Boulardii (Florastor) 500 mg PO BIDWM [facility] Senna (Senokot) 8.6 - 17.2 mg PO DAILY [facility] Sertraline HCl (Zoloft) 100 mg PO DAILY [facility] HOME meds: Levothyroxine [Synthroid] 75 mcg PO DAILY 04/03/14 Acetaminophen [Tylenol Extra Strength] 500 - 1,000 mg PO TID PRN 08/15/18 Calcium/Magnesium/Vitamin D3 [Pardeep-Mag Complex 300-150 mg Tab] 2 each PO BID 08/15/18 Multivitamin [Theragran] 1 each PO DAILY 08/15/18 [place]-3 Fatty Acids/Fish Oil [[place]-3 Fish Oil 1,000 mg Sfgl] 1 each PO DAILY 08/15/18 Sertraline HCl [Zoloft] 100 mg PO DAILY 08/15/18 hydroCHLOROthiazide [Hydrochlorothiazide] 25 mg PO DAILY 08/15/18 lamoTRIgine [LaMICtal] 100 mg PO DAILY 08/15/18 Objective - Vital Signs/Intake & Output Reviewed Vital Signs: Yes Vital Signs: Vital Signs x48h Temp Pulse Resp BP Pulse Ox 08/23/18 09:36 36.8 C 85 16 173/85 H 96 Intake & Output: Intake & Output 08/20/18 08/21/18 08/22/18 08/23/18 23:59 23:59 23:59 23:59 Intake Total 843 440 240 457 Output Total 750 1801 Balance 93 -1361 240 457 - Objective General Appearance: positive: Alert, Mild distress, Anxious Eyes Bilateral: positive: Normal inspection, PERRL Eyes: OU Conjunctivae pale ENT: positive: ENT inspection nml, Pharynx nml, No signs of dehydration Neck: positive: Thyroid nml, No JVD, Trachea midline Respiratory: positive: Chest non-tender, No respiratory distress, Breath sounds nml Cardiovascular: positive: Regular rate & rhythm, No murmur, No gallop Peripheral Pulses: 1+ Radial (R), 1+ Radial (L) Abdomen: positive: Non-tender, Nml bowel sounds Back: positive: Nml inspection Skin: positive: Color nml, No rash, Warm, Dry Extremities: positive: Non-tender, Full ROM, Nml appearance Neurologic/Psychiatric: positive: CN's nml (2-12), Motor nml, Sensation nml, Weakness, Sensory loss, Depressed mood/affect, Other (poor short term memory loss Impaired sense of reality) Reflexes: Bicep (R): 3+, Bicep (L): 3+ - Lab Results Fish Bones: 08/21/18 19:00 08/21/18 19:00 Other Labs: Lab Results x24hrs 08/18/18 Range/Units 11:36 Lamotrigine 2.5 L (4.0-18.0) mcg/mL - Diagnostic Imaging Diagnostic Imaging Results: positive: Final report reviewed ABX Reporting Has patient been on IV antibiotics over the past 48 hours?: No Sepsis Event Note (H) - Evaluation Current Stage of Sepsis: Ruled out Assessment/Plan - Problem List (1) Bipolar disorder, current episode manic severe with psychotic features Impression: - History of bipolar upon chart review - Resumed zoloft and buspirone per DCR recommendation who was working on placement to a psych facility, unless she becomes back to her baseline on her own. - Labs including BMP, troponin, ammonia, folate, B12, blood cultures x2, and CK were all normal - a large bag of home meds were found in the patient's room and upon pharmacy review, there were several different types of pills within one container. Be nzodiazepines were the predominant pill found in several bottles - Status post IV levofloxacin and IV flagyl which may have been a triggering culprit - Meals have not been consistent - Head CT is normal showing no acute bleeding or infarcts Plan: Continue to monitor for improvement and recommend a home medication program upon discharge (2) Bacteremia due to Escherichia coli Impression: - BC x2 dated 08/14- both + for e. coli - BC x2 dated 08/16- both NGTD - New BCs x2 08/18/18- both NGTD - Most likely source is urine - Afebrile - Continued with AMS, hallucinations, delirium, psychosis - Cannot comprehend common phrases such as, "do you want to get in the chair?", and quickly changes the topic to, "my bed is cold" - Today she speaks of staying with her friend Lorena, but driving by to see her dogs first - Faint murmur on exam, concerning for possible valve vegetation, echo showed no vegetation - Status post IV levofloxacin and IV flagyl stopped for changes in AMS - PO Ceftin without ill effects to continue for a minimum of 14 days - No rash noted upon exam Plan: Continue antibiotics, and anticipate home when mental status is improved (3) Acute infective psychosis Impression: - Slightly improved, still has impaired judgment - Overall the same, with inappropriate statements, unable to follow simple tasks or do common things - Now with delusions and paranoia - Tells very convincing stories, but when double checked with her loved ones, these stories are incorrect - As per UpToDate: this syndrome is described as: -Symptoms of psychosis seen in the disorder include one or more of the following: -Hallucinations The perception of a sensory process in the absence of an external source. Hallucinations can be auditory, visual, somatic, olfactory, or gustatory. -Delusions A fixed, false belief. Delusions can be bizarre or non-bizarre -Disorganized speech Disorganized speech patterns reflect disruption in the organization of persons thoughts. Commonly observed forms include tangentially and circumstantially -Disorganized behavior A patient with grossly disorganized behavior is often recognized by their inability to complete daily, normative tasks (eg, clothed, clean, belongings in order) In addition to the symptoms comprising diagnostic criteria for brief psychotic disorder assessment, the patient should be evaluated for other features suggestive of brief psychotic disorder: -Presence of marked stressors preceding symptom onset -Lack of negative symptoms -Confusion during the early course of illness - the patient is found to have all of these characteristics - History of bipolar, depression, short term memory loss, and PTSD upon chart review - Labs including BMP, troponin, ammonia, folate, B12, blood cultures x2, and CK were all normal, MUDDS normal - 2 doses of Romazicon were given with no effect - a large back of home meds were found in the patient's room and upon pharmacy review, there were several different types of pills within one container - Status post IV levofloxacin and IV flagyl - Meals have been inconsistent in amounts - Episode began after getting Temazepam 7.5 mg, but most likely culprit is levofloxacin - Head CT is normal Plan: Consider a spinal tap if fevers or WBC count appear or if other indications appear (4) UTI (urinary tract infection) Impression: - Imaging confirmed kidney abnormalities - Abdominal pain upon admission, now resolved - Diarrhea improved - BCs x2 show e. coli, consistent with pyelonephritis - 2nd set of BCs negative, new set drawn 08/18/2018- NGTD - Status post urinary retention from her recent change in mental status, now urinating - Denies dysuria upon exam - According to outside records, her UTIs may be recurrent Plan: Continue PO ceftin Qualifiers: Urinary tract infection type: acute pyelonephritis Qualified Code(s): N10 - Acute pyelonephritis (5) HTN (hypertension) Impression: - HCTZ at home, now resumed due to continued HTN -Lisinopril continues, increased to 40 mg, which the patient questioned as not being her usual dose - Hypertension noted today with a B/P of 177/93 Plan: Continue to monitor, make adjustments as needed Qualifiers: Hypertension type: essential hypertension Qualified Code(s): I10 - Essential (primary) hypertension (6) Anxiety and depression Impression: - Home meds are Buspar and Zoloft - Both stopped due to worsening mental status, now resumed as per DCR recommendation - Provide frequent nursing cares during this time of presumed bibi - Re-evaluated by DCR for worrisome inability for the patient to function and her inability to complete her full treatment of antibiotics Plan: Monitor for worsening depression or anxiety (7) Colitis Impression: - CT results more consistent with pyelonephritis which goes with e coli bacteremia, abdominal pain, septic shock and imaging - C-diff negative - On exam, patient cannot follow commands and is found to have a change in her mental status - She denies any abdominal pain and remembers going to the doctor prior to this admission with her horrible abdominal pain - Status post IV flagyl - CEA on lab is normal, a colon cancer predictor - After reviewing outside records, the patient had frequent office visits for abdominal pain with the last visit being 08/12/2018 - On the 08/12 visit, the patient stated that this pain had started 2 months ago and said the pain started to the right of her umbilicus and spread downward to bilateral hips - The patient stated, "Feels like I'm going to give if I walk around too much" - Her usual time of this pain was close to bedtime and it felt like shocks, and aching which would wake her up at night Plan: Continue PO Ceftin
[2018-08-24] MEDS: LEVOTHYROXINE 75 MCG TABLET PO SCH (06:30)
[2018-08-24 08:42] VITALS: BP 149/90
[2018-08-24 08:49] LABS: HGB - HEMOGLOBIN 11.2 g/dL (12.0-16.0); MEAN CORPUSCULAR HGB CONC 33.5 g/dL (32.0-36.0); MEAN CORPUSCULAR VOLUME 86.5 fL (81.0-99.0); MEAN PLATELET VOLUME 6.5 fL (7.9-10.8); RED BLOOD COUNT 3.86 10^6/uL (4.20-5.40); RED CELL DISTRIBUTION WIDTH 14.7 % (12.0-15.0); WHITE BLOOD COUNT 10.1 x10^3/uL (4.8-10.8)
[2018-08-24] MEDS: OMEGA-3 ACID ETHYL ESTERS 1 GM CAPSULE PO SCH (08:56)
[2018-08-24] MEDS: SERTRALINE 50 MG TABLET PO SCH (08:57)
[2018-08-24] MEDS: hydroCHLOROthiazide 25 MG TABLET PO SCH (08:57)
[2018-08-24] MEDS: cefUROXime axetil 250 MG TABLET PO SCH (08:57)
[2018-08-24] MEDS: LISINOPRIL 20 MG TABLET PO SCH (08:57)
[2018-08-24] MEDS: busPIRone 5 MG TABLET PO SCH (08:57)
[2018-08-24] MEDS: ENOXAPARIN 40 MG/0.4 ML SYRINGE SUBQ SCH (08:58)
[2018-08-24] MEDS: POLYETHYLENE GLYCOL 3350 17 GM PACKET PO SCH (08:58)
[2018-08-24] MEDS: FERROUS SULFATE 325 MG TABLET PO SCH (08:58)
[2018-08-24] MEDS: SACCHAROMYCES BOULARDII 250 MG CAPSULE PO SCH (08:58)
[2018-08-24] MEDS: lamoTRIgine 100 MG TABLET PO SCH (08:58)
[2018-08-24] MEDS: SENNA 8.6 MG TABLET PO SCH (08:59)
[2018-08-24 09:05] LABS: ALBUMIN 3.7 g/dL (3.2-5.5); ALBUMIN/GLOBULIN RATIO 1.1 (1.0-2.2); BILIRUBIN,TOTAL 0.7 mg/dL (0.2-1.0); CALCIUM 9.3 mg/dL (8.5-10.3); TOTAL PROTEIN 7.2 g/dL (6.7-8.2)
[2018-08-24] MEDS ORDERED: POTASSIUM CHLORIDE 20 MEQ TABLET PO SCH (10:54)
--- NOTE | 2018-08-24 10:57 | Discharge Plan ---
Discharge Plan Disposition: Home, Self Care Condition: Poor Prescriptions: Buspirone HCl 10 mg PO TID PRN #10 tablet PRN Reason: Anxiety cefUROXime axetil [Ceftin] 500 mg PO BID 14 Days #56 tablet Ferrous Gluconate 240 mg PO DAILY #30 tablet Lisinopril 10 mg PO DAILY #30 tablet Saccharomyces Boulardii [Florastor] 250 mg PO BID #30 capsule Diet: Regular Activity Restrictions: Activity as Tolerated Shower Restrictions: No (fall precaution) Instruction Topics: Cefuroxime tablets, Buspirone tablets, Lisinopril tablets Additional Instructions or Follow Up instructions: You were admitted for a suspected UTI, and bacteremia so you are advised to continue to finish the antibiotics course. The blood cultures show e. coli in 2 of 2 samples and explains the reason that you were so severely sick. The most likely cause of this blood stream infection or bacteremia is from your bladder as e. coli is the most common pathogen that infects bladders. You had an echocardiogram (a heart ultrasound) to check for "vegetation" or collections of bacteria clusters that can sometimes happen with a blood stream infection and this was negative. The treatment for this infection is an extended course of antibiotics to be taken for the next 14 days, and ideally recheck blood cultures at the end of the course. You were found to have a condition called anemia, low red blood cell counts. There are several reasons this may happen. Iron studies showed that you will need iron replacement for the next month or so. I have sent iron to the pharmacy. Your blood pressure was elevated for the past several days, so I have sent over a higher dose of lisinopril to your pharmacy. Since you were experiencing psychosis, your Buspar and Zoloft was stopped. You can resume the Zoloft at 1/2 the dose for the next few days, then your normal dose. The buspar, can also be taken only as needed for times where you feel anxious. I recommend not resuming both of these suddenly when you arrive home since you have not had them in several days. Our pharmacy department is required to review your medications, and several medications were mixed in bottles that they did not belong. We recommend assistance at home with medication administration. Please see your PCP within one week. No Smoking: If you smoke, Please STOP! Call for help. Follow-up with: Tank Olivera MD [Primary Care Provider] -
--- NOTE | 2018-08-24 11:05 | DISCHARGE SUMMARY ---
Discharge Summary Discharge Date: 08/24/18 Discharging Provider: STARR Primary Care Provider: Dr. Olivera Condition at Discharge: Poor Discharge Disposition: 01 Home, Self Care Discharge Facility Name: home - DIAGNOSES Admission Diagnoses: (1) Abdominal pain (2) Bacteremia due to Gram-negative bacteria (3) Acute kidney injury (4) UTI (urinary tract infection) (5) HTN (hypertension) (6) Hypothyroidism (7) Anxiety and depression (8) Hyponatremia (9) Diarrhea Discharge Diagnoses with Status of Each Condition: (1) Bipolar disorder, current episode manic severe with psychotic features (2) Bacteremia due to Escherichia coli (3) Acute kidney injury (4) UTI (urinary tract infection) (5) HTN (hypertension) (6) Anxiety and depression (7) Colitis - HPI History of Present Illness: is a 67-year-old female with a PMH significant of hypertension, HLD, hypothyoidism, heart murmur, depression, anxiety, bipolar, osteoarthritis who present ER complain of abdominal pain. Pt report she had abdominal pain for couple of months. Her abdominal pain mainly locate her right middle quadrant of abdomen. She report her abdominal pain persisted and she developed nausea and vomiting about 1 week ago. she has also developed diarrhea 2 days ago. Pt report she saw PCP on Thursday and she had labs done. Rx Macrobid was prescribed for her. She report she has only been able to drink water all week. She can not able to take any of her medications. She report she had fever 102 F at home. She denies chest pain, headache, cough, wheezing, shortness of breath, dysuria, hematuria. CT of abdomen and pelvis indicate definite inflammation partially contiguous with cecum and along the right lateral conal fascia with slight inflammation contiguous with right kidney and right ureter. ER provider discussed the case with the GI doctor at [facility], who recommended admission of pt for observation, stool studies, fluids, antibiotics, pain control and delay in scoping. Nurse report blood culture in two tubes both are positive for gram negative bacilli. pt is afebrile at ER, slight low board of BP, otherwise pt is hemodynamically stable. Lab test reveals pt had elevated creatinine1.7 from 0.9 two days ago, hy ponatremia 128. UA indicate UTI. pt is admitted for above medical causes. - HOSPITAL COURSE Hospital Course: 1) Bipolar disorder, current episode manic severe with psychotic features stable. pt is alert and oriented plus 3 today. followup PCP (2) Bacteremia due to Escherichia coli after treatment, blood culture show negative for bacteremia. pt is prescribed Ceftin for finishing the treatment course. (3) Acute kidney injury resolved (4) UTI (urinary tract infection) resolved (5) HTN (hypertension) stable. Pt is prescribed Lisinopril, followup PCP (6) Anxiety and depression stable, pt is prescribed buspirone, followup PCP (7) Colitis resolved. pt denies abdominal pain, N/V/D. pt tolerated regular diet - ALLERGIES Allergies/Adverse Reactions: Allergies Allergy/AdvReac Type Severity Reaction Status Date / Time codeine Allergy Nausea Verified 08/14/18 20:53 Penicillins Allergy Hives Verified 08/14/18 20:53 Sulfa (Sulfonamide Allergy Hives Verified 08/14/18 20:53 Antibiotics) Latex, Natural Rubber AdvReac Severe Rash Verified 08/14/18 20:53 oxycodone AdvReac Nausea Verified 08/14/18 20:53 - MEDICATIONS Home Medications: Ambulatory Orders Medication Instructions Recorded Confirmed Levothyroxine [Synthroid] 75 mcg PO DAILY 04/03/14 08/15/18 Acetaminophen [Tylenol Extra 500 - 1,000 mg PO TID PRN 08/15/18 08/15/18 Strength] Calcium/Magnesium/Vitamin D3 2 each PO BID 08/15/18 08/15/18 [Pardeep-Mag Complex 300-150 mg Tab] Multivitamin [Theragran] 1 each PO DAILY 08/15/18 08/15/18 Columbia-3 Fatty Acids/Fish Oil 1 each PO DAILY 08/15/18 08/15/18 [Columbia-3 Fish Oil 1,000 mg Sfgl] Sertraline HCl [Zoloft] 100 mg PO DAILY 08/15/18 08/15/18 hydroCHLOROthiazide 25 mg PO DAILY 08/15/18 08/15/18 [Hydrochlorothiazide] lamoTRIgine [LaMICtal] 100 mg PO DAILY 08/15/18 08/15/18 Buspirone HCl 10 mg PO TID PRN #10 tablet 08/20/18 Ferrous Gluconate 240 mg PO DAILY #30 tablet 08/20/18 Lisinopril 10 mg PO DAILY #30 tablet 08/20/18 Saccharomyces Boulardii [Florastor] 250 mg PO BID #30 capsule 08/20/18 cefUROXime axetil [Ceftin] 500 mg PO BID 14 Days #56 tablet 08/20/18 - PHYSICAL EXAM AT DISCHARGE General Appearance: positive: No acute distress, Alert. negative: Lethargic Eyes Bilateral: positive: Normal inspection, PERRL, No lid inflammation, Conjunctivae nml ENT: positive: ENT inspection nml, Pharynx nml, No signs of dehydration. negative: Purulent nasal drainage, Pharyngeal erythema, Oral lesions Neck: positive: Nml inspection, Thyroid nml, No JVD, Trachea midline. negative: Thyromegaly, Lymphadenopathy (R), Lymphadenopathy (L), Stiff neck, Swelling/bruising, Tracheal deviation Respiratory: positive: Chest non-tender, No respiratory distress, Breath sounds nml. negative: Wheezes, Rales, Rhonchi Cardiovascular: positive: Regular rate & rhythm, No murmur, No gallop. negative: Irregularly irregular, Extrasystoles, Tachycardia, Bradycardia, JVD present, Systolic murmur, Diastolic murmur Peripheral Pulses: positive: 2+ Abdomen: positive: Non-tender, No organomegaly, Nml bowel sounds, No distention. negative: Tenderness, Guarding, Rebound Back: positive: Nml inspection. negative: CVA tenderness (R), CVA tenderness (L) Skin: positive: Color nml, No rash, Warm, Dry. negative: Cyanosis, Diaphoresis, Pallor Extremities: positive: Non-tender, Full ROM, Nml appearance. negative: Calf tenderness, Joint swelling, Tatum's sign/cords Neurologic/Psychiatric: positive: Oriented x3, Motor nml, Sensation nml. negative: Weakness, Sensory loss, Facial droop, Slurred/abnml speech, Depressed mood/affect - LABS Result Diagrams: 08/24/18 08:40 08/24/18 08:40 - SEPSIS Current Stage of Sepsis: Ruled out Possible source of Sepsis: Genitourinary - FOLLOW UP Follow Up: You were admitted for a suspected UTI, and bacteremia so you are advised to continue to finish the antibiotics course. The blood cultures show e. coli in 2 of 2 samples and explains the reason that you were so severely sick. The most likely cause of this blood stream infection or bacteremia is from your bladder as e. coli is the most common pathogen that infects bladders. You had an echocardiogram (a heart ultrasound) to check for "vegetation" or collections of bacteria clusters that can sometimes happen with a blood stream infection and this was negative. The treatment for this infection is an extended course of antibiotics to be taken for the next 14 days, and ideally recheck blood cultures at the end of the course. You were found to have a condition called anemia, low red blood cell counts. There are several reasons this may happen. Iron studies showed that you will need iron replacement for the next month or so. I have sent iron to the pharmacy. Your blood pressure was elevated for the past several days, so I have sent over a higher dose of lisinopril to your pharmacy. Since you were experiencing psychosis, your Buspar and Zoloft was stopped. You can resume the Zoloft at 1/2 the dose for the next few days, then your normal dose. The buspar, can also be taken only as needed for times where you feel anxious. I recommend not resuming both of these suddenly when you arrive home since you have not had them in several days. Our pharmacy department is required to review your medications, and several medications were mixed in bottles that they did not belong. We recommend assistance at home with medication administration. Please see your PCP within one week. - TIME SPENT Time Spent in Discharge (Minutes): 60
== END 2018-08-24 14:35 | disposition home or self-care (01) | DRG 690 ==
LOC: EDUNIT# → ED 20:50 → MS2 08-15 09:01
PROVIDERS: ADMIT Nurse Practitioner Gerontology; ATTEND Nurse Practitioner
DX: N10 Acute pyelonephritis (principal); E86.0 Dehydration; E87.1 Hypo-osmolality and hyponatremia; F31.2 Bipolar disorder, current episode manic severe with psychotic features; K52.9 Noninfective gastroenteritis and colitis, unspecified; N17.9 Acute kidney failure, unspecified; B96.20 Unspecified Escherichia coli [E. coli] as the cause of diseases classified elsewhere; R33.9 Retention of urine, unspecified; R41.0 Disorientation, unspecified; F41.9 Anxiety disorder, unspecified; I10 Essential (primary) hypertension; E78.5 Hyperlipidemia, unspecified; E78.00 Pure hypercholesterolemia, unspecified; R01.1 Cardiac murmur, unspecified; E03.9 Hypothyroidism, unspecified; M19.90 Unspecified osteoarthritis, unspecified site; Z90.49 Acquired absence of other specified parts of digestive tract; Z90.710 Acquired absence of both cervix and uterus; Z88.0 Allergy status to penicillin; Z88.2 Allergy status to sulfonamides; Z88.6 Allergy status to analgesic agent; Z91.040 Latex allergy status
CPT/HCPCS: 36415; 70450; 74177; 80048; 80053; 80175; 81001; 82140; 82378; 82550; 82607; 82728; 82746; 83540; 83605; 83615; 83690; 83735; 84100; 84443; 84466; 84484; 85025; 85027; 85044; 87040; 87077; 87086; 87181; 87493; 93005; 93306; 96361; 96365; 96367; 96368; 96375; 99284; A9270; G0378; J0131; J1170; J1650; J2060; J2270; J7120; Q0162; Q9967; 80306; 81003; 87045; 87046

== ENCOUNTER 2018-09-02 11:20 | Outpatient (CLI) | payer MEDICARE, MEDICAID ==
[2018-09-02 18:33] LABS: BASOPHILS % (AUTO) 0.5 %; EOSINOPHILS # (AUTO) 0.1 10^3/uL (0.0-0.7); EOSINOPHILS % (AUTO) 1.8 %; HGB - HEMOGLOBIN 11.1 g/dL (12.0-16.0); LYMPHOCYTES # (AUTO) 1.6 10^3/uL (1.5-3.5); MEAN CORPUSCULAR HEMOGLOBIN 29.5 pg (27.0-31.0); MEAN CORPUSCULAR HGB CONC 33.4 g/dL (32.0-36.0); MEAN CORPUSCULAR VOLUME 88.3 fL (81.0-99.0); MEAN PLATELET VOLUME 8.6 fL (7.9-10.8); MONOCYTES # (AUTO) 0.4 10^3/uL (0.0-1.0); MONOCYTES % (AUTO) 6.8 %; NEUTROPHILS # (AUTO) 3.9 10^3/uL (1.5-6.6); NEUTROPHILS % (AUTO) 64.9 %; PLT - PLATELET COUNT 271 10^3/uL (130-450); RED BLOOD COUNT 3.75 10^6/uL (4.20-5.40); RED CELL DISTRIBUTION WIDTH 14.8 % (12.0-15.0)
== END 2018-09-02 11:21 | disposition home or self-care (01) ==
LOC: LAB.F 11:20
PROVIDERS: ATTEND Registered Nurse
DX: R10.30 Lower abdominal pain, unspecified (principal); R78.81 Bacteremia
CPT/HCPCS: 36415; 85025; 87086

== ENCOUNTER 2018-09-20 14:14 | Outpatient (CLI) | payer MEDICARE, MEDICAID ==
[2018-09-20 17:45] LABS: BASOPHILS % (AUTO) 0.5 %; EOSINOPHILS # (AUTO) 0.2 10^3/uL (0.0-0.7); EOSINOPHILS % (AUTO) 2.9 %; HGB - HEMOGLOBIN 11.3 g/dL (12.0-16.0); LYMPHOCYTES # (AUTO) 1.8 10^3/uL (1.5-3.5); MEAN CORPUSCULAR HEMOGLOBIN 29.4 pg (27.0-31.0); MEAN CORPUSCULAR VOLUME 89.2 fL (81.0-99.0); MEAN PLATELET VOLUME 7.5 fL (7.9-10.8); MONOCYTES # (AUTO) 0.4 10^3/uL (0.0-1.0); MONOCYTES % (AUTO) 5.7 %; NEUTROPHILS # (AUTO) 4.3 10^3/uL (1.5-6.6); NEUTROPHILS % (AUTO) 63.9 %; PLT - PLATELET COUNT 218 10^3/uL (130-450); RED BLOOD COUNT 3.84 10^6/uL (4.20-5.40); WHITE BLOOD COUNT 6.8 x10^3/uL (4.8-10.8)
[2018-09-20 18:12] LABS: CALCIUM 9.3 mg/dL (8.5-10.3); CREATININE 1.2 mg/dL (0.4-1.0)
== END 2018-09-20 14:15 | disposition home or self-care (01) ==
LOC: LAB.F 14:14
PROVIDERS: ATTEND Registered Nurse
DX: R42 Dizziness and giddiness (principal); R53.83 Other fatigue
CPT/HCPCS: 36415; 80048; 85025; 87086

== ENCOUNTER 2019-03-11 07:22 | Outpatient (CLI) | payer MEDICARE, MEDICAID ==
[2019-03-11 10:51] LABS: BASOPHILS % (AUTO) 0.4 %; EOSINOPHILS # (AUTO) 0.2 10^3/uL (0.0-0.7); EOSINOPHILS % (AUTO) 3.3 %; HGB - HEMOGLOBIN 12.2 g/dL (12.0-16.0); LYMPHOCYTES # (AUTO) 1.8 10^3/uL (1.5-3.5); LYMPHOCYTES % (AUTO) 35.2 %; MEAN CORPUSCULAR HEMOGLOBIN 29.7 pg (27.0-31.0); MEAN CORPUSCULAR HGB CONC 32.7 g/dL (32.0-36.0); MEAN CORPUSCULAR VOLUME 90.8 fL (81.0-99.0); MEAN PLATELET VOLUME 10.3 fL (7.9-10.8); MONOCYTES # (AUTO) 0.3 10^3/uL (0.0-1.0); MONOCYTES % (AUTO) 6.7 %; NEUTROPHILS # (AUTO) 2.8 10^3/uL (1.5-6.6); NEUTROPHILS % (AUTO) 54.2 %; PLT - PLATELET COUNT 187 10^3/uL (130-450); RED BLOOD COUNT 4.11 10^6/uL (4.20-5.40); RED CELL DISTRIBUTION WIDTH 14.2 % (12.0-15.0); WHITE BLOOD COUNT 5.1 x10^3/uL (4.8-10.8)
[2019-03-11 11:10] LABS: ALBUMIN 3.7 g/dL (3.2-5.5); ALBUMIN/GLOBULIN RATIO 1.2 (1.0-2.2); ALKALINE PHOSPHATASE 58 IU/L (42-121); ALT ALANINE AMINOTRANSFERASE 17 IU/L (10-60); AST ASPARTATE AMINOTRANSFERASE 16 IU/L (10-42); BILIRUBIN,TOTAL 0.5 mg/dL (0.2-1.0); BUN - BLOOD UREA NITROGEN 25 mg/dL (6-20); CALCIUM 9.4 mg/dL (8.5-10.3); CARBON DIOXIDE - CO2 26 mmol/L (21-32); CHLORIDE 109 mmol/L (101-111); CHOL/HDL RATIO 3.3 (<4.4); CHOLESTEROL 278 mg/dL; CREATININE 1.2 mg/dL (0.4-1.0); GFR - MDRD 45 (>89); GLUCOSE 106 mg/dL (70-100); HDL CHOLESTEROL 83 mg/dL; LDL CHOLESTEROL,CALCULATED 173 mg/dL; LDL/HDL RATIO 2.1 (<4.4); SODIUM 142 mmol/L (135-145); TOTAL PROTEIN 6.8 g/dL (6.7-8.2); VLDL CHOLESTEROL 22 mg/dL
== END 2019-03-11 07:23 | disposition home or self-care (01) ==
LOC: LAB.S 07:22
PROVIDERS: ATTEND Physician Assistant Medical
DX: I10 Essential (primary) hypertension (principal); E78.5 Hyperlipidemia, unspecified; R53.83 Other fatigue; E03.9 Hypothyroidism, unspecified; D64.9 Anemia, unspecified
CPT/HCPCS: 36415; 80053; 80061; 83721; 84443; 85025

== ENCOUNTER 2019-05-20 10:25 | Outpatient (CLI) | payer MEDICARE, MEDICAID ==
--- NOTE | 2019-05-20 13:25 | XRAY Report ---
Reason: H05.222 ORBITAL EDEMA, LEFT Procedure Date: 05/20/2019 Accession Number: [id number] / [id number] Procedure: XRS - Facial Bones Complete CPT Code: Final Report FULL RESULT: EXAM: FACIAL BONES RADIOGRAPHY EXAM DATE: 05/20/2019 11:28 AM. CLINICAL HISTORY: H05. 222 ORBITAL EDEMA, LEFT. COMPARISON: None. TECHNIQUE: 5 views. FINDINGS: Bones: Normal. No fractures or bone lesions. Temporomandibular Joints: Normal. Sinuses: Normal. No opacities or fluid levels. Other: Normal. No soft tissue swelling. IMPRESSION: Normal facial bones radiography. As clinically wanted CT [facility]
== END 2019-05-20 10:26 | disposition home or self-care (01) ==
LOC: DI.S 10:25
PROVIDERS: ATTEND Family Medicine
DX: H05.222 Edema of left orbit (principal)
CPT/HCPCS: 70150

== ENCOUNTER 2019-06-01 10:36 | Outpatient (CLI) | payer MEDICARE, MEDICAID ==
--- NOTE | 2019-06-02 10:58 | CT Report ---
Reason: LT ORBITAL EDEMA Procedure Date: 06/01/2019 Accession Number: [id number] / [id number] Procedure: CT - MAXILLOFACIAL WO CPT Code: Final Report FULL RESULT: EXAM: CT MAXILLOFACIAL WITHOUT CONTRAST EXAM DATE: 06/01/2019 11:05 AM. CLINICAL HISTORY: LT ORBITAL EDEMA. COMPARISONS: FACIAL BONES COMPLETE 05/20/2019 11:33 AM HEAD W/O 08/18/2018 1:38 PM. TECHNIQUE: Thin-section axial images were acquired of the face without contrast. Post-processing: Coronal and sagittal reformats. Other: None. In accordance with CT protocol optimization, one or more of the following dose reduction techniques were utilized for this exam: automated exposure control, adjustment of mA and/or KV based on patient size, or use of iterative reconstructive technique. FINDINGS: Soft Tissue: The infratemporal fossa and parapharyngeal spaces are unremarkable. Orbits: Symmetric and unremarkable. Bones: No fracture or bone lesion. Temporomandibular Joints: Right TMJ degenerative changes. Left TMJ unremarkable Sinuses: Right maxillary retention cyst 1.6 cm. Trace mucosal thickening left maxillary sinus, ethmoid sinuses Other: DJD cervical spine IMPRESSION: Negative for fracture [facility]
== END 2019-06-01 10:37 | disposition home or self-care (01) ==
LOC: DI 10:36
PROVIDERS: ATTEND Family Medicine
DX: H05.222 Edema of left orbit (principal)
CPT/HCPCS: 70486

== ENCOUNTER 2019-06-13 10:07 | Outpatient (CLI) | payer MEDICARE, MEDICAID ==
--- NOTE | 2019-06-13 14:31 | CT Report ---
Reason: HEADACHE Procedure Date: 06/13/2019 Accession Number: [id number] / [id number] Procedure: CT - HEAD WO CPT Code: Final Report FULL RESULT: EXAM: CT HEAD EXAM DATE: 06/13/2019 11:00 AM. CLINICAL HISTORY: HEADACHE. COMPARISON: FACIAL BONES W/O 06/01/2019 10:59 AM HEAD W/O 08/18/2018 1:38 PM. TECHNIQUE: Multiaxial CT images were obtained from the foramen magnum to the vertex. Reformats: Sagittal and coronal. IV contrast: None. In accordance with CT protocol optimization, one or more of the following dose reduction techniques were utilized for this exam: automated exposure control, adjustment of mA and/or KV based on patient size, or use of iterative reconstructive technique. FINDINGS: Parenchyma: No intraparenchymal hemorrhage. No evidence of mass, midline shift, or CT findings of infarction. Huerta-white differentiation is distinct. Note is made of a dilated perivascular space in the left anterior perforated substance. Extraaxial Spaces: Normal for age. No subdural or epidural collections identified. Ventricles: Normal in size and position. Sinuses and Orbits: Imaged paranasal sinuses, orbits, and mastoids show no significant abnormality. Bones: No evidence of fracture or calvarial defect. Mild degenerative changes seen in the right TMJ. Other: Mild vascular calcification is seen involving intracranial ICA. IMPRESSION: 1. Negative noncontrast CT scan of the head. No acute abnormality. No significant interval change. (Note, MRI can be more sensitive in the evaluation of intracranial abnormality. If symptoms persist, correlation with MRI could be considered. [facility]
== END 2019-06-13 10:08 | disposition home or self-care (01) ==
LOC: DI 10:07
PROVIDERS: ATTEND Family Medicine
DX: R51 Headache (principal); S09.90XS Unspecified injury of head, sequela
CPT/HCPCS: 70450

== ENCOUNTER 2019-06-15 10:35 | Outpatient (CLI) | payer MEDICARE, MEDICAID ==
[2019-06-15 18:13] LABS: BILIRUBIN,URINE NEGATIVE (NEGATIVE); GLUCOSE, URINE (UA) NEGATIVE (NEGATIVE); KETONES,URINE (UA) NEGATIVE (NEGATIVE); LEUKOCYTE ESTERASE, URINE NEGATIVE (NEGATIVE); NITRITE,URINE NEGATIVE (NEGATIVE); OCCULT BLOOD,URINE NEGATIVE (NEGATIVE); PROTEIN,URINE NEGATIVE (NEGATIVE); UROBILINOGEN,URINE 0.2 (NORMAL) E.U./dL (NORMAL)
[2019-06-15 18:16] LABS: CLARITY,URINE CLEAR (CLEAR)
[2019-06-15 18:34] LABS: ALBUMIN 4.1 g/dL (3.2-5.5); ALBUMIN/GLOBULIN RATIO 1.3 (1.0-2.2); BILIRUBIN,TOTAL 0.5 mg/dL (0.2-1.0); CALCIUM 9.1 mg/dL (8.5-10.3); CREATININE 1.1 mg/dL (0.4-1.0); TOTAL PROTEIN 7.3 g/dL (6.7-8.2)
== END 2019-06-15 10:36 | disposition home or self-care (01) ==
LOC: LAB.S 10:35
PROVIDERS: ATTEND Family Medicine
DX: N28.9 Disorder of kidney and ureter, unspecified (principal); Z79.899 Other long term (current) drug therapy
CPT/HCPCS: 36415; 80053; 81001; 81003; 87086

== ENCOUNTER 2020-04-23 10:26 | Outpatient (CLI) | payer MEDICARE, MEDICAID ==
[2020-04-23 16:01] LABS: BASOPHILS % (AUTO) 0.3 %; EOSINOPHILS # (AUTO) 0.2 10^3/uL (0.0-0.7); EOSINOPHILS % (AUTO) 2.4 %; HGB - HEMOGLOBIN 12.6 g/dL (12.0-16.0); LYMPHOCYTES # (AUTO) 1.4 10^3/uL (1.5-3.5); LYMPHOCYTES % (AUTO) 22.5 %; MEAN CORPUSCULAR HEMOGLOBIN 29.9 pg (27.0-31.0); MEAN CORPUSCULAR HGB CONC 32.6 g/dL (32.0-36.0); MEAN CORPUSCULAR VOLUME 91.9 fL (81.0-99.0); MEAN PLATELET VOLUME 10.5 fL (7.9-10.8); MONOCYTES # (AUTO) 0.3 10^3/uL (0.0-1.0); MONOCYTES % (AUTO) 5.5 %; NEUTROPHILS # (AUTO) 4.3 10^3/uL (1.5-6.6); NEUTROPHILS % (AUTO) 68.8 %; PLT - PLATELET COUNT 195 10^3/uL (130-450); RED BLOOD COUNT 4.21 10^6/uL (4.20-5.40); RED CELL DISTRIBUTION WIDTH 13.3 % (12.0-15.0); WHITE BLOOD COUNT 6.2 x10^3/uL (4.8-10.8)
[2020-04-23 16:22] LABS: ALBUMIN 3.9 g/dL (3.2-5.5); ALBUMIN/GLOBULIN RATIO 1.1 (1.0-2.2); ALKALINE PHOSPHATASE 75 IU/L (42-121); ALT ALANINE AMINOTRANSFERASE 19 IU/L (10-60); AST ASPARTATE AMINOTRANSFERASE 18 IU/L (10-42); BILIRUBIN,TOTAL 0.7 mg/dL (0.2-1.0); BUN - BLOOD UREA NITROGEN 23 mg/dL (6-20); CALCIUM 9.6 mg/dL (8.5-10.3); CARBON DIOXIDE - CO2 23 mmol/L (21-32); CHLORIDE 107 mmol/L (101-111); CHOL/HDL RATIO 4.3 (<4.4); CHOLESTEROL 301 mg/dL; CREATININE 1.2 mg/dL (0.4-1.0); GLUCOSE 107 mg/dL (70-100); HDL CHOLESTEROL 70 mg/dL; LDL CHOLESTEROL,CALCULATED 184 mg/dL; LDL/HDL RATIO 2.6 (<4.4); SODIUM 139 mmol/L (135-145); TOTAL PROTEIN 7.3 g/dL (6.7-8.2); VLDL CHOLESTEROL 47 mg/dL
== END 2020-04-23 10:27 | disposition home or self-care (01) ==
LOC: LAB.S 10:26
PROVIDERS: ATTEND Internal Medicine
DX: I10 Essential (primary) hypertension (principal); E78.5 Hyperlipidemia, unspecified; E03.9 Hypothyroidism, unspecified
CPT/HCPCS: 36415; 80053; 80061; 83721; 84443; 85025

== ENCOUNTER 2020-06-19 07:00 | Outpatient (CLI) | payer MEDICARE, MEDICAID | END 2020-06-19 23:59 | disposition home or self-care (01) | LOC: LAB.S 07:00 | PROVIDERS: ATTEND Physician Assistant | DX: N30.01 Acute cystitis with hematuria (principal) | CPT/HCPCS: 87077; 87086; 87181 ==

== ENCOUNTER 2020-10-29 11:27 | Outpatient (CLI) | payer MEDICARE, MEDICAID ==
[2020-10-29 14:43] LABS: BASOPHILS % (AUTO) 0.4 %; EOSINOPHILS # (AUTO) 0.1 10^3/uL (0.0-0.7); EOSINOPHILS % (AUTO) 1.6 %; HCT - HEMATOCRIT 36.6 % (37.0-47.0); LYMPHOCYTES # (AUTO) 1.6 10^3/uL (1.5-3.5); LYMPHOCYTES % (AUTO) 30.8 %; MEAN CORPUSCULAR HEMOGLOBIN 30.1 pg (27.0-31.0); MEAN CORPUSCULAR HGB CONC 32.8 g/dL (32.0-36.0); MEAN CORPUSCULAR VOLUME 91.7 fL (81.0-99.0); MEAN PLATELET VOLUME 10.7 fL (7.9-10.8); MONOCYTES # (AUTO) 0.3 10^3/uL (0.0-1.0); MONOCYTES % (AUTO) 5.8 %; NEUTROPHILS # (AUTO) 3.2 10^3/uL (1.5-6.6); NEUTROPHILS % (AUTO) 61.2 %; PLT - PLATELET COUNT 153 10^3/uL (130-450); RED BLOOD COUNT 3.99 10^6/uL (4.20-5.40); RED CELL DISTRIBUTION WIDTH 12.9 % (12.0-15.0); WHITE BLOOD COUNT 5.2 x10^3/uL (4.8-10.8)
[2020-10-29 15:39] LABS: ALBUMIN/GLOBULIN RATIO 1.3 (1.0-2.2); ALKALINE PHOSPHATASE 63 IU/L (42-121); ALT ALANINE AMINOTRANSFERASE 18 IU/L (10-60); AST ASPARTATE AMINOTRANSFERASE 21 IU/L (10-42); BILIRUBIN,TOTAL 0.6 mg/dL (0.2-1.0); BUN - BLOOD UREA NITROGEN 20 mg/dL (6-20); CARBON DIOXIDE - CO2 23 mmol/L (21-32); CHLORIDE 101 mmol/L (101-111); CHOL/HDL RATIO 3.7 (<4.4); CHOLESTEROL 295 mg/dL; CREATININE 1.1 mg/dL (0.4-1.0); GFR - MDRD 49 (>89); GLUCOSE 84 mg/dL (70-100); HDL CHOLESTEROL 80 mg/dL; LDL CHOLESTEROL,CALCULATED 188 mg/dL; LDL/HDL RATIO 2.4 (<4.4); POTASSIUM 4.3 mmol/L (3.5-5.0); SODIUM 134 mmol/L (135-145); TOTAL PROTEIN 7.1 g/dL (6.7-8.2); TRIGLYCERIDES 137 mg/dL; VLDL CHOLESTEROL 27 mg/dL
[2020-10-29 15:41] LABS: THYROID STIMULATING HORMONE 0.97 uIU/mL (0.34-5.60)
== END 2020-10-29 11:28 | disposition home or self-care (01) ==
LOC: LAB.S 11:27
PROVIDERS: ATTEND Internal Medicine
DX: E03.9 Hypothyroidism, unspecified (principal); I10 Essential (primary) hypertension; E78.5 Hyperlipidemia, unspecified; E55.9 Vitamin D deficiency, unspecified; N30.01 Acute cystitis with hematuria
CPT/HCPCS: 36415; 80053; 80061; 81599; 82306; 83721; 84439; 84443; 85025

== ENCOUNTER 2021-04-29 08:34 | Outpatient (CLI) | payer MEDICARE, MEDICAID ==
[2021-04-29 14:40] LABS: BASOPHILS % (AUTO) 0.4 %; EOSINOPHILS # (AUTO) 0.1 10^3/uL (0.0-0.7); EOSINOPHILS % (AUTO) 2.5 %; HCT - HEMATOCRIT 36.6 % (37.0-47.0); LYMPHOCYTES # (AUTO) 1.8 10^3/uL (1.5-3.5); LYMPHOCYTES % (AUTO) 36.5 %; MEAN CORPUSCULAR HEMOGLOBIN 30.2 pg (27.0-31.0); MEAN CORPUSCULAR HGB CONC 32.8 g/dL (32.0-36.0); MEAN CORPUSCULAR VOLUME 92.2 fL (81.0-99.0); MEAN PLATELET VOLUME 10.5 fL (7.9-10.8); MONOCYTES # (AUTO) 0.4 10^3/uL (0.0-1.0); MONOCYTES % (AUTO) 7.3 %; NEUTROPHILS # (AUTO) 2.5 10^3/uL (1.5-6.6); NEUTROPHILS % (AUTO) 53.1 %; PLT - PLATELET COUNT 161 10^3/uL (130-450); RED BLOOD COUNT 3.97 10^6/uL (4.20-5.40); RED CELL DISTRIBUTION WIDTH 13.2 % (12.0-15.0); WHITE BLOOD COUNT 4.8 x10^3/uL (4.8-10.8)
[2021-04-29 15:05] LABS: THYROID STIMULATING HORMONE 2.9 uIU/mL (0.34-5.60)
[2021-04-29 15:07] LABS: ALBUMIN 3.6 g/dL (3.2-5.5); ALBUMIN/GLOBULIN RATIO 1.1 (1.0-2.2); ALKALINE PHOSPHATASE 62 IU/L (42-121); ALT ALANINE AMINOTRANSFERASE 16 IU/L (10-60); AST ASPARTATE AMINOTRANSFERASE 18 IU/L (10-42); BILIRUBIN,TOTAL 0.8 mg/dL (0.2-1.0); BUN - BLOOD UREA NITROGEN 20 mg/dL (6-20); CARBON DIOXIDE - CO2 27 mmol/L (21-32); CHLORIDE 105 mmol/L (101-111); CHOL/HDL RATIO 3.4 (<4.4); CHOLESTEROL 272 mg/dL; CREATININE 1.1 mg/dL (0.4-1.0); GFR - MDRD 49 (>89); GLUCOSE 92 mg/dL (70-100); HDL CHOLESTEROL 81 mg/dL; LDL CHOLESTEROL,CALCULATED 160 mg/dL; SODIUM 139 mmol/L (135-145); TOTAL PROTEIN 6.9 g/dL (6.7-8.2); TRIGLYCERIDES 153 mg/dL; VLDL CHOLESTEROL 31 mg/dL
== END 2021-04-29 08:35 | disposition home or self-care (01) ==
LOC: LAB.S 08:34
PROVIDERS: ATTEND Internal Medicine
DX: I10 Essential (primary) hypertension (principal); E78.5 Hyperlipidemia, unspecified; E03.9 Hypothyroidism, unspecified
CPT/HCPCS: 36415; 80053; 80061; 83721; 84443; 85025

== ENCOUNTER 2022-07-22 08:21 | Outpatient (CLI) | payer MEDICARE, MEDICAID ==
[2022-07-22 14:44] LABS: BASOPHILS % (AUTO) 0.4 %; EOSINOPHILS # (AUTO) 0.1 10^3/uL (0.0-0.7); EOSINOPHILS % (AUTO) 2.8 %; HCT - HEMATOCRIT 39.7 % (37.0-47.0); HGB - HEMOGLOBIN 12.3 g/dL (12.0-16.0); LYMPHOCYTES # (AUTO) 1.7 10^3/uL (1.5-3.5); LYMPHOCYTES % (AUTO) 37.4 %; MEAN CORPUSCULAR HEMOGLOBIN 28.7 pg (27.0-31.0); MEAN CORPUSCULAR VOLUME 92.5 fL (81.0-99.0); MONOCYTES # (AUTO) 0.3 10^3/uL (0.0-1.0); MONOCYTES % (AUTO) 7.4 %; NEUTROPHILS # (AUTO) 2.4 10^3/uL (1.5-6.6); NEUTROPHILS % (AUTO) 51.6 %; PLT - PLATELET COUNT 169 10^3/uL (130-450); RED BLOOD COUNT 4.29 10^6/uL (4.20-5.40); RED CELL DISTRIBUTION WIDTH 14.2 % (12.0-15.0); WHITE BLOOD COUNT 4.6 x10^3/uL (4.8-10.8)
[2022-07-22 15:22] LABS: ALBUMIN 3.7 g/dL (3.2-5.5); ALBUMIN/GLOBULIN RATIO 1.1 (1.0-2.2); BILIRUBIN,TOTAL 0.4 mg/dL (0.2-1.0); CALCIUM 8.8 mg/dL (8.5-10.3); CREATININE 1.1 mg/dL (0.4-1.0); POTASSIUM 4.1 mmol/L (3.5-5.0); TOTAL PROTEIN 7.1 g/dL (6.7-8.2)
[2022-07-22 15:41] LABS: THYROID STIMULATING HORMONE 3.07 uIU/mL (0.34-5.60)
[2022-07-23 17:07] LABS: CREATININE,URINE 25.1 mg/dL
[2022-07-23 17:15] LABS: MICROALBUMIN,URINE < 0.2 mg/dL (0-300.0)
== END 2022-07-22 08:22 | disposition home or self-care (01) ==
LOC: LAB.S 08:21
PROVIDERS: ATTEND Physician Assistant
DX: I10 Essential (primary) hypertension (principal); N28.9 Disorder of kidney and ureter, unspecified; E03.9 Hypothyroidism, unspecified
CPT/HCPCS: 36415; 80053; 81599; 82043; 82570; 82610; 84443; 85025

== ENCOUNTER 2023-01-28 08:00 | Outpatient (CLI) | payer MEDICARE, MEDICAID | END 2023-01-28 23:59 | disposition home or self-care (01) | LOC: LAB.S 08:00 | PROVIDERS: ATTEND Physician Assistant | DX: R30.0 Dysuria (principal) | CPT/HCPCS: 87086 ==

== ENCOUNTER 2023-03-18 10:18 | Outpatient (CLI) | payer MEDICAID, MEDICARE ==
[2023-03-18 14:46] LABS: BASOPHILS % (AUTO) 0.4 %; EOSINOPHILS # (AUTO) 0.1 10^3/uL (0.0-0.7); HCT - HEMATOCRIT 37.3 % (37.0-47.0); HGB - HEMOGLOBIN 12.2 g/dL (12.0-16.0); LYMPHOCYTES % (AUTO) 38.1 %; MEAN CORPUSCULAR HEMOGLOBIN 29.8 pg (27.0-31.0); MEAN CORPUSCULAR HGB CONC 32.7 g/dL (32.0-36.0); MEAN CORPUSCULAR VOLUME 91.2 fL (81.0-99.0); MEAN PLATELET VOLUME 10.4 fL (7.9-10.8); MONOCYTES # (AUTO) 0.3 10^3/uL (0.0-1.0); MONOCYTES % (AUTO) 6.3 %; NEUTROPHILS # (AUTO) 2.7 10^3/uL (1.5-6.6); PLT - PLATELET COUNT 181 10^3/uL (130-450); RED BLOOD COUNT 4.09 10^6/uL (4.20-5.40); RED CELL DISTRIBUTION WIDTH 13.6 % (12.0-15.0); WHITE BLOOD COUNT 5.1 x10^3/uL (4.8-10.8)
[2023-03-18 15:18] LABS: THYROID STIMULATING HORMONE 1.98 uIU/mL (0.34-5.60)
[2023-03-18 16:32] LABS: ALBUMIN/GLOBULIN RATIO 1.4 (1.0-2.2); BILIRUBIN,TOTAL 0.4 mg/dL (0.2-1.0); CALCIUM 9.5 mg/dL (8.5-10.3); MAGNESIUM 1.7 mg/dL (1.7-2.3); POTASSIUM 3.8 mmol/L (3.5-4.5); TOTAL PROTEIN 6.8 g/dL (6.4-8.9)
== END 2023-03-18 10:19 | disposition home or self-care (01) ==
LOC: LAB.S 10:18
PROVIDERS: ATTEND Internal Medicine
DX: N28.9 Disorder of kidney and ureter, unspecified (principal); R25.2 Cramp and spasm; E03.9 Hypothyroidism, unspecified
CPT/HCPCS: 36415; 80053; 82330; 83735; 84443; 85025

== ENCOUNTER 2023-06-17 08:00 | Outpatient (CLI) | payer MEDICARE | END 2023-06-17 08:01 | disposition home or self-care (01) | LOC: LAB.S 08:00 | PROVIDERS: ATTEND Registered Nurse | DX: R05.1 Acute cough (principal) ==

== ENCOUNTER 2023-07-23 11:55 | Outpatient (CLI) | payer MEDICARE ==
--- NOTE | 2023-07-23 17:57 | XRAY Report ---
PROCEDURE: Chest 2V INDICATIONS: COUGH TECHNIQUE: 2 views of the chest were acquired. COMPARISON: None. FINDINGS: Surgical changes and devices: None. Lungs and pleura: No pleural effusions or pneumothorax. Lungs are clear. Mediastinum: Mediastinal contours appear normal. Heart size is normal. Bones and chest wall: No suspicious bony lesions. Overlying soft tissues appear unremarkable. IMPRESSION: No acute cardiopulmonary process. Reviewed by: Osvaldo Bond MD on 07/23/2023 5:56 PM PDT Approved by: Osvaldo Bond MD on 07/23/2023 5:56 PM PDT Station ID: [id number]
== END 2023-07-23 11:56 | disposition home or self-care (01) ==
LOC: DI.S 11:55
PROVIDERS: ATTEND Physician Assistant Medical
DX: R05.9 Cough, unspecified (principal)

== ENCOUNTER 2023-09-05 08:00 | Outpatient (CLI) | payer MEDICARE | END 2023-09-05 23:59 | disposition home or self-care (01) | LOC: LAB.N 08:00 | PROVIDERS: ATTEND Physician Assistant Medical | DX: R31.9 Hematuria, unspecified (principal); R39.15 Urgency of urination; R30.0 Dysuria | CPT/HCPCS: 87086 ==